=== PATIENT | female | born 1945 | race African-American/Black ===

== ENCOUNTER 2022-03-03 22:43 | Inpatient (IN) | payer MEDICARE, MEDICAID, SELFPAY ==
--- NOTE | ~2022-03-03 | CT_ITS ---
EXAMINATION: CT ANGIOGRAM OF THE CHEST WITH AND WITHOUT CONTRAST (CT PULMONARY ANGIOGRAM FOR PE) CLINICAL INFORMATION: Reason for Exam R O PE COMPARISON: Chest radiograph 03/03/2022 TECHNIQUE: Prior to contrast administration, noncontrast localization images were obtained. Subsequently, multidetector volumetric imaging was performed from the thoracic inlet to below the diaphragms following the administration of 65 mL Omnipaque 350 intravenous contrast. No contrast reaction reported Sagittal, coronal, and MIP oblique sagittal reformatted images were obtained on the CT workstation, uploaded to PACS, and reviewed. This CT examination was performed using dose optimization techniques as appropriate, variously including the following: *Automated exposure control *Adjustment of mA and/or kV according to patient size (this includes techniques or standardized protocols for targeted exams where dose is matched to indication/reason for exam; i.e. extremities or head) *Use of iterative reconstruction technique Total exam dose-length product 314 mGy-cm FINDINGS: QUALITY OF STUDY/CONTRAST BOLUS: Suboptimal. The upper portion of the chest was not included on the coronary angiographic is timing and respiratory motion limits evaluation and therefore segmental and subsegmental pulmonary emboli cannot be evaluated for. PULMONARY ARTERIES: No central or lobar pulmonary embolism. Segmental and subsegmental pulmonary emboli cannot be excluded given limitations of the exam. Prominent pulmonary arteries which can be seen in setting of pulmonary hypertension. CHEST WALL/AXILLA: No axillary lymphadenopathy. Left chest wall dual lead cardiac pacemaker leads terminating in the right atrium and ventricle. LUNGS: Respiratory motion the lung bases limits evaluation. A 9.5 x 9.6 cm approximately centrally fluid attenuation right upper lobe mass in the right lung apex contacting the right hilum, superior mediastinum and posterolateral pleural surface, for which differential considerations would include a necrotic primary bronchogenic carcinoma, versus a necrotizing pneumonia. The lesion narrows and attenuates the right upper lobe bronchus. A 0.6 cm solid right lower lobe pulmonary nodule, 11:281. Mild diffuse bronchial wall thickening with patchy areas of groundglass may reflect mild pulmonary edema or underlying atypical/viral infection. MEDIASTINUM: Heart is mildly enlarged. Enlarged 1.3 cm precarinal node. Enlarged 1.6 cm short axis right hilar node. CORONARY ARTERY CALCIFICATION: No significant coronary artery calcification appreciated on this exam. PLEURA: Trace right pleural effusion. UPPER ABDOMEN: Status post cholecystectomy. A 1.3 cm indeterminate left adrenal nodule and a 1.0 cm indeterminate right adrenal nodule. OSSEOUS STRUCTURES: Unremarkable. CT/CT angio chest PE protocol IMPRESSION: No central or lobar pulmonary embolism. Segmental and subsegmental pulmonary emboli cannot be excluded given limitations of the exam. An at least 9.5 cm centrally fluid attenuation right upper mass, suspicious for necrotizing bronchogenic carcinoma versus a necrotizing pneumonia. Recommend correlation with clinical symptoms and consider tissue sampling or PET/CT for further evaluation. Mediastinal and right hilar adenopathy which may be metastatic versus reactive, depending on the clinical context. Indeterminate 1.3 cm left adrenal nodule and indeterminate 1.0 cm right adrenal nodule for which further characterization with CT adrenal protocol, MR abdomen or PET/CT is recommended if patient is deemed have a primary malignancy. A 0.5 cm indeterminate right lower lobe pulmonary nodule. Fleischner Society recommended for pulmonary nodule follow-up do not apply for patients with a history of malignancy. Mild diffuse bronchial wall thickening with patchy areas of groundglass may reflect mild pulmonary edema or underlying atypical/viral infection. Mild cardiomegaly with a trace right pleural effusion. The findings and recommendations were discussed with Dr. Jamie Sahhid MD by telephone at 03/05/2022 8:04 PM and it was ascertained that the content and urgency of the report was understood at the time of direct communication.
--- NOTE | ~2022-03-03 | XR_ITS ---
EXAMINATION: XR CHEST CLINICAL INFORMATION: Low blood pressure COMPARISON: None TECHNIQUE: Frontal view of the chest was obtained. FINDINGS: Dense right upper lobe airspace consolidation. No appreciable air bronchograms or volume loss. Mild streaky/linear left basilar subsegmental atelectasis. No pleural effusion or pneumothorax identified. Cardiomediastinal silhouette within normal limits. Left-sided pacer with lead tips project over the right atrium and right ventricle. No evidence of pulmonary edema. No acute osseous injury identified. XR/XR chest 1V IMPRESSION: 1. Dense right upper lobe airspace consolidation compatible with pneumonia in the appropriate clinical setting. 2. No pleural effusions. 3. Mild left basilar subsegmental atelectasis.
--- NOTE | ~2022-03-03 | XR_ITS ---
EXAMINATION: XR ABDOMEN KUB CLINICAL INDICATION: Constipation COMPARISON: None TECHNIQUE: AP view of the abdomen. FINDINGS: There is an 8.1 x 7.6 cm stool ball present in the rectum. There is no evidence of bowel obstruction. Air is seen nondilated colon with a small amount seen in small bowel. No unusual soft tissue calcifications are noted. Degenerative changes are seen in the spine. Surgical clips are noted in the gallbladder fossa. A bipolar pacemaker is present. Patient status post laminectomy at L3 and possibly L4. XR/XR KUB IMPRESSION: Stool ball present in the rectum. No evidence of bowel obstruction.
[2022-03-03 22:58] VITALS: BP 110/50; BP 92/32; PULSE 100; PULSE 98; RESP 24; TEMP 36.9; O2SAT 94; O2SAT 98; BMI 42.3
--- NOTE | 2022-03-03 23:21 | ECG_ITS ---
Test Reason : SOB Blood Pressure : / mmHG Vent. Rate : 096 BPM Atrial Rate : 096 BPM P-R Int : 222 ms QRS Dur : 104 ms QT Int : 368 ms P-R-T Axes : 080 088 175 degrees QTc Int : 464 ms Sinus rhythm with 1st degree A-V block ST & T wave abnormality, consider inferolateral ischemia Abnormal ECG No previous ECGs available Referred By: Sunitha Springer Electronically Signed By:Cory Pyle
--- NOTE | 2022-03-03 23:40 | ED_ITS ---
HPI - General Adult General Chief complaint: Dyspnea Stated complaint: hypotension with difficulty breathing Time Seen by Provider: 03/03/22 23:01 Source: patient and EMS Mode of arrival: EMS Limitations: other (Very hard of hearing) History of Present Illness HPI narrative: Patient comes to the emergency room from [facility]. According to the staff, patient's oxygen saturation was low in the 70s, blood pressure in the low 90s. According to EMS, when they arrived, patient had a blood pressure of 110/50 and oxygen saturation 93-94 on her usual 4 L. patient states that she feels fine and does not have any new symptoms. The to the emergency room, patient in no acute distress, Related Data Allergies Allergy/AdvReac Type Severity Reaction Status Date / Time No Known Allergies Allergy Verified 03/03/22 22:55 Review of Systems Review of Systems: Constitutional : No Weight loss, No Fever, No Chills, No Night Sweats, No Fatigue, No Malaise ENT/Mouth : No Hearing loss, No Ear Pain, No Nasal Congestion, No Sinus Pain, No Hoarseness, No sore throat, No Rhinorrhea, No Swallowing Difficulty Eyes: No Eye Pain, No Swelling, No Redness, No Foreign Body, No Discharge, No Vision Changes Cardiovascular : No Chest Pain, No SOB, No Dyspnea on Exertion, No Orthopnea, No Edema, No Palpitations Respiratory : No Cough, No Sputum, No Wheezing, No Smoke Exposure, No Dyspnea Gastrointestinal : No Nausea, No Vomiting, No Diarrhea, No Constipation, No abdominal Pain, No Hematochezia, No Melena Genitourinary : no irregular bleeding, No Dysuria, No Urinary Frequency, No Hematuria, No Urinary Incontinence, No Urgency, No Flank Pain, No Urinary Flow Changes, No Hesitancy Musculoskeletal : No joint pain, No Myalgias, No Joint Swelling Skin : No Skin Lesions, No rash Neuro : No Weakness, No Numbness, No Paresthesias, No Loss of Consciousness, No Dizziness, No Headache Psych : No Anxiety/Panic, No Depression, No SI/HI/AH/VH, No Social Issues, Heme/Lymph: No Bruising, No Bleeding,No Lymphadenopathy Endocrine : No Polyuria, No Polydipsia, No Temperature Intolerance PMFSH Past Medical History Medical History (Updated 03/04/22 @ 04:33 by Sunitha Springer MD) CHF (congestive heart failure) Chronic respiratory failure CKD (chronic kidney disease) COPD (chronic obstructive pulmonary disease) HLD (hyperlipidemia) HTN (hypertension), benign Lung cancer Social History Social History Advance Directives: No Advance Directives Information Provided: Yes Physical Exam ED Vital Signs: Vital Signs - 24 hr 03/03/22 22:58 03/04/22 00:23 03/04/22 02:59 Temperature 98.4 F 97.8 F 97.9 F Pulse Rate 98 94 89 Respiratory Rate 24 H 19 24 H Blood Pressure 92/32 L 101/50 L 107/64 Pulse Oximetry 98 98 100 Oxygen Delivery Method Nasal Cannula Room Air Nasal Cannula Oxygen Flow Rate 6 BMI result Body Mass Index 42.3 Const Other: Appearance: Alert. Oriented X3. No acute distress. Eyes: Pupils equal, round and reactive to light. ENT: Pharynx normal. Hard of hearing Neck: Normal inspection. Neck supple. No lymph nodes noted. No crepitus CVS: Normal heart rate and rhythm. Pulses normal. Normal S1 and S2 Respiratory: No respiratory distress. Breath sounds normal. No Wheezing. No ral es Abdomen: Soft and nontender. No rigidity. No distention. Skin: Skin warm and dry. Normal skin color. Normal skin turgor. Extremities: No lower extremity edema. No Lacerations. No Rash Neuro: Oriented X 3. No motor deficit. No sensory deficit. Moving all extremities. No slurred speech. CN 2 through 12 grossly intact Psych: calm, cooperative, normal affect Course Course Course Narrative: Patient likely has pneumonia, right upper lobe. Patient also count 15.4, lactic acid within normal limits. Here in the emergency room, patient has not had hypertension under 90 systolic. Patient states that she has no chest pain or shortness of breath. Sepsis is not suspected. Fluids cannot be giving at a rapid rate for a high-volume the 2 history of CHF. Patient's troponin 1. Is elevated but it is unclear if this is new or not, no previous troponin for comparison or EKGs. The EKG has significant abnormalities, but again, it is unclear if these are new or not. The 2nd EKG that was taken does not show any differences from the 1st 1. The 2nd troponin is a bit elevated compared to the 1st 1. Troponin 1. Was 164, troponin 2. Was 245. Patient remains asymptomatic and vitals are stable. Response from Cardiology on-call pending. Patient will likely need to be heparinized. Potassium 3.1, replaced p.o.. The D-dimer is elevated. At this time, we cannot do an CT for pulmonary em bolism rule out due to patient's renal function. Patient was gently hydrated, will repeat chemistry. Patient does have history of chronic kidney disease stage 3. Patient will likely need a V/Q scan in the morning. I discussed the patient with Dr. Ayala, given that the patient has T-wave inversions with troponin doubling, we will go ahead and start heparin. V/Q scan will likely be done later this morning. Medications Administered Discontinued Medications Generic Name Dose Route Start Last Admin Trade Name Freq PRN Reason Stop Dose Admin Sodium Chloride 1,000 mls @ 500 mls/hr 03/04/22 00:43 03/04/22 03:10 Ns IVCONT 03/04/22 02:42 Infused .Q2H ONE Infusion Azithromycin 500 mg/ Sodium 250 mls @ 125 mls/hr 03/04/22 00:43 03/04/22 02:35 Chloride IV 03/04/22 02:42 125 mls/hr ONCE ONE Administration Ceftriaxone Sodium 1 gm/ 50 mls @ 100 mls/hr 03/04/22 00:43 03/04/22 03:10 Sodium Chloride IV 03/04/22 01:12 Infused ONCE ONE Infusion Potassium Chloride 40 meq 03/04/22 03:21 03/04/22 04:03 Potassium Chloride Packet 20 Meq Packet PO 03/04/22 03:22 40 meq ONCE ONE Administration Medical Decision Making Differential Diagnosis Differential Diagnoses: The differential diagnosis associated with the presentation includes (Demand ischemia versus NSTEMI, pneumonia) Admission/Observation Consideration of admission/observation: Escalation of care including admission/observation considered (Troponin has been elevated, EKG has significant T-wave inversions, unknown if these are new) Consult Healthcare Provider Management of the patient was discussed with: Hospitalist discussed pt with Dr Ayala, will go ahead and start heparin Lab Data MDM Lab Attestation statement: I reviewed the patient's lab results. 03/04/22 00:13 03/04/22 00:13 Labs: Lab Results 03/03/22 03/04/22 03/04/22 Range/Units 23:57 00:12 00:12 WBC (4.8-10.8) X10*3/uL RBC (4.20-5.50) X10*6/uL Hgb (12.0-16.0) g/dl Hct (37.0-47.0) % MCV (80.0-98.0) fL MCH (27.0-33.0) pg MCHC (31.0-35.0) g/dl RDW (11.0-16.0) % Plt Count (160-400) X10*3/uL MPV (9.4-12.3) fL Immature Gran % (Auto) (0.0-0.4) % Neut % (Auto) (45-73) % Lymph % (Auto) (20-40) % [place] % (Auto) (2-11) % Eos % (Auto) (0-4) % Baso % (Auto) (0-2) % Lymph # (Auto) (1.2-4.9) X10*3/uL [place] # (Auto) (0.1-1.2) X10*3/uL Eos # (Auto) (0.0-0.4) X10*3/uL Baso # (Auto) (0.0-0.2) X10*3/uL Abs Immat Gran (auto) (0.00-0.03) X10*3/uL Absolute Neuts (auto) (2.0-8.3) x10*3/uL Absolute Nucleated RBC (0.0-0.012) X10*3/uL Nucleated RBC % (auto) (0.0-0.2) /100WBC PT (10.0-13.1) SEC INR (0.9-1.1) D-Dimer High Sensitivty 927 NG/ML Sodium (135-145) mmol/L Potassium (3.3-5.1) mmol/L Chloride (96-108) mmol/L Carbon Dioxide (22-29) mmol/L Anion Gap (12-20) BUN (9-16) mg/dL Creatinine (0.5-1.4) mg/dL Estim Creat Clear Calc Estimated GFR Random Glucose (60-115) mg/dL Lactic Acid (0.5-2.0) mmol/L Calcium (8.4-10.2) mg/dL Magnesium (1.6-2.6) mg/dL Total Bilirubin (0.0-1.0) mg/dL Direct Bilirubin (0.0-0.5) mg/dL AST (5-31) U/L ALT (0-31) U/L Alkaline Phosphatase (39-117) U/L Troponin I High Sens (<3.5-17.0) ng/L B-Natriuretic Peptide 172 H (<100) pg/mL Total Protein (6.5-8.0) g/dL Albumin (3.5-5.0) g/dL COVID-19 ([facility]ANEL) Negative (Negative) COVID-19 Clin Com See Note 03/04/22 03/04/22 03/04/22 Range/Units 00:13 00:13 00:13 WBC 15.4 H (4.8-10.8) X10*3/uL RBC 3.60 L (4.20-5.50) X10*6/uL Hgb 10.4 L (12.0-16.0) g/dl Hct 35.0 L (37.0-47.0) % MCV 97.2 (80.0-98.0) fL MCH 28.9 (27.0-33.0) pg MCHC 29.7 L (31.0-35.0) g/dl RDW 14.6 (11.0-16.0) % Plt Count 690 H (160-400) X10*3/uL MPV 9.3 L (9.4-12.3) fL Immature Gran % (Auto) 2.1 H (0.0-0.4) % Neut % (Auto) 89.4 H (45-73) % Lymph % (Auto) 3.8 L (20-40) % [place] % (Auto) 4.4 (2-11) % Eos % (Auto) 0.0 (0-4) % Baso % (Auto) 0.3 (0-2) % Lymph # (Auto) 0.6 L (1.2-4.9) X10*3/uL [place] # (Auto) 0.7 (0.1-1.2) X10*3/uL Eos # (Auto) 0.0 (0.0-0.4) X10*3/uL Baso # (Auto) 0.0 (0.0-0.2) X10*3/uL Abs Immat Gran (auto) 0.33 H (0.00-0.03) X10*3/uL Absolute Neuts (auto) 13.7 H (2.0-8.3) x10*3/uL Absolute Nucleated RBC 0.000 (0.0-0.012) X10*3/uL Nucleated RBC % (auto) 0.0 (0.0-0.2) /100WBC PT 15.5 H (10.0-13.1) SEC INR 1.3 H (0.9-1.1) D-Dimer High Sensitivty NG/ML Sodium 138 (135-145) mmol/L Potassium 3.1 L (3.3-5.1) mmol/L Chloride 83 L (96-108) mmol/L Carbon Dioxide 40 H* (22-29) mmol/L Anion Gap 18 (12-20) BUN 21 H (9-16) mg/dL Creatinine 1.76 H (0.5-1.4) mg/dL Estim Creat Clear Calc 36.8 Estimated GFR 28 Random Glucose 107 (60-115) mg/dL Lactic Acid (0.5-2.0) mmol/L Calcium 9.3 (8.4-10.2) mg/dL Magnesium 1.6 (1.6-2.6) mg/dL Total Bilirubin 1.2 H (0.0-1.0) mg/dL Direct Bilirubin 0.6 H (0.0-0.5) mg/dL AST 22 (5-31) U/L ALT 10 (0-31) U/L Alkaline Phosphatase 78 (39-117) U/L Troponin I High Sens (<3.5-17.0) ng/L B-Natriuretic Peptide (<100) pg/mL Total Protein 6.9 (6.5-8.0) g/dL Albumin 3.0 L (3.5-5.0) g/dL COVID-19 ([facility]ANEL) (Negative) COVID-19 Clin Com 03/04/22 03/04/22 03/04/22 Range/Units 00:13 00:13 03:33 WBC (4.8-10.8) X10*3/uL RBC (4.20-5.50) X10*6/uL Hgb (12.0-16.0) g/dl Hct (37.0-47.0) % MCV (80.0-98.0) fL MCH (27.0-33.0) pg MCHC (31.0-35.0) g/dl RDW (11.0-16.0) % Plt Count (160-400) X10*3/uL MPV (9.4-12.3) fL Immature Gran % (Auto) (0.0-0.4) % Neut % (Auto) (45-73) % Lymph % (Auto) (20-40) % [place] % (Auto) (2-11) % Eos % (Auto) (0-4) % Baso % (Auto) (0-2) % Lymph # (Auto) (1.2-4.9) X10*3/uL [place] # (Auto) (0.1-1.2) X10*3/uL Eos # (Auto) (0.0-0.4) X10*3/uL Baso # (Auto) (0.0-0.2) X10*3/uL Abs Immat Gran (auto) (0.00-0.03) X10*3/uL Absolute Neuts (auto) (2.0-8.3) x10*3/uL Absolute Nucleated RBC (0.0-0.012) X10*3/uL Nucleated RBC % (auto) (0.0-0.2) /100WBC PT (10.0-13.1) SEC INR (0.9-1.1) D-Dimer High Sensitivty NG/ML Sodium (135-145) mmol/L Potassium (3.3-5.1) mmol/L Chloride (96-108) mmol/L Carbon Dioxide (22-29) mmol/L Anion Gap (12-20) BUN (9-16) mg/dL Creatinine (0.5-1.4) mg/dL Estim Creat Clear Calc Estimated GFR Random Glucose (60-115) mg/dL Lactic Acid 0.9 (0.5-2.0) mmol/L Calcium (8.4-10.2) mg/dL Magnesium (1.6-2.6) mg/dL Total Bilirubin (0.0-1.0) mg/dL Direct Bilirubin (0.0-0.5) mg/dL AST (5-31) U/L ALT (0-31) U/L Alkaline Phosphatase (39-117) U/L Troponin I High Sens 164.3 H* 345.2 H* D (<3.5-17.0) ng/L B-Natriuretic Peptide (<100) pg/mL Total Protein (6.5-8.0) g/dL Albumin (3.5-5.0) g/dL COVID-19 ([facility]ANEL) (Negative) COVID-19 Clin Com Independent Interpretation I performed an independent interpretation of an: EKG (Fred inversions in lead 1, 2, V4 through V6, heart rate 91, sinus rhythm, ST abnormalities in V4 through V6, no previous EKGs for comparison) and Plain X-Ray Interpretation: My interpretation of chest x-ray: Large gastric bubble, likely a hiatal hernia, pacemaker in place, pneumonia in right upper lobe Radiology Impression Discussion of test interpretation with radiology: I have reviewed the radiologist's reading. Radiologist Impression: INDINGS: Dense right upper lobe airspace consolidation. No appreciable air bronchograms or volume loss. Mild streaky/linear left basilar subsegmental atelectasis. No pleural effusion or pneumothorax identified. Cardiomediastinal silhouette within normal limits. Left-sided pacer with lead tips project over the right atrium and right ventricle. No evidence of pulmonary edema. No acute osseous injury identified. XR/XR chest 1V IMPRESSION: 1.? Dense right upper lobe airspace consolidation compatible with pneumonia in the appropriate clinical setting. 2.? No pleural effusions. 3.? Mild left basilar subsegmental atelectasis. Chronic Conditions Patient?s care impacted by: Other (COPD, CHF. Antibiotics have been started, fluids need to be crushed with care due to CHF) Critical Care Time Critical Care Time Critical Care Time: Yes Total Critical Care Time: 75 Attestation: I have personally provided critical care time. Time includes review of lab data, radiology results, discussion with consultants, and monitoring for potential decompensation. Intervention performed as documented. Discharge Plan Discharge Clinical Impression: Pneumonia, Non-ST elevation DC (NSTEMI), Elevated d-dimer, Hypokalemia Patient Disposition: Admitted As Inpatient
[2022-03-04] VITALS (8 sets, daily range): BP systolic 101–120; BP diastolic 47–75; PULSE 74–94; RESP 16–24; TEMP 36.4–37.1; O2SAT 95–100; BMI 42.7
--- NOTE | 2022-03-04 | ECG_ITS ---
Test Reason : SOB Blood Pressure : / mmHG Vent. Rate : 091 BPM Atrial Rate : 091 BPM P-R Int : 250 ms QRS Dur : 112 ms QT Int : 352 ms P-R-T Axes : 080 090 199 degrees QTc Int : 432 ms Sinus rhythm with 1st degree A-V block Rightward axis ST & T wave abnormality, consider inferolateral ischemia Abnormal ECG When compared with ECG of 03-MAR-2022 23:27, No significant change was found Referred By: Sunitha Springer Electronically Signed By:Cory Pyle
--- NOTE | 2022-03-04 | ECG_ITS ---
Test Reason : SOB Blood Pressure : / mmHG Vent. Rate : 075 BPM Atrial Rate : 075 BPM P-R Int : 244 ms QRS Dur : 108 ms QT Int : 390 ms P-R-T Axes : 079 065 168 degrees QTc Int : 435 ms Sinus rhythm with 1st degree A-V block ST & T wave abnormality, consider inferolateral ischemia Abnormal ECG When compared with ECG of 04-MAR-2022 00:41, Nonspecific T wave abnormality has replaced inverted T waves in Anterior leads Referred By: Sunitha Springer Electronically Signed By:Cory Pyle
[2022-03-04 00:18] LABS: MANUAL DIFF FLAG NO
[2022-03-04 00:23] LABS: White Blood Count 15.4 X10*3/uL (4.8-10.8)
[2022-03-04 00:24] LABS: Basophils Percent Auto 0.3 % (0-2); Hemoglobin 10.4 g/dl (12.0-16.0); Imm Gran Abs Auto 0.33 X10*3/uL (0.00-0.03); Imm Gran Pct Auto 2.1 % (0.0-0.4); Lymphocytes Absolute Auto 0.6 X10*3/uL (1.2-4.9); Lymphocytes Percent Auto 3.8 % (20-40); Mean Corpuscular HGB Conc 29.7 g/dl (31.0-35.0); Mean Corpuscular Hemoglobin 28.9 pg (27.0-33.0); Mean Corpuscular Volume 97.2 fL (80.0-98.0); Mean Platelet Volume 9.3 fL (9.4-12.3); Monocytes Absolute Auto 0.7 X10*3/uL (0.1-1.2); Monocytes Percent Auto 4.4 % (2-11); Neutrophils Absolute Auto 13.7 x10*3/uL (2.0-8.3); Neutrophils Percent Auto 89.4 % (45-73); Platelet Count 690 X10*3/uL (160-400); Red Cell Distribution Width 14.6 % (11.0-16.0)
[2022-03-04 00:26] LABS: COVID-19 Test Negative (Negative); IDNOW Serial# 6674DD1D
[2022-03-04 00:27] LABS: INTERNATIONAL NORM RATIO 1.3 (0.9-1.1); Prothrombin Time 15.5 SEC (10.0-13.1)
[2022-03-04 00:29] LABS: D Dimer High Sensitivity 927 NG/ML
[2022-03-04 00:36] LABS: Lactic Acid 0.9 mmol/L (0.5-2.0)
[2022-03-04 00:47] LABS: B Type Natriuretic Peptide 172 pg/mL (<100)
[2022-03-04 00:49] LABS: Troponin-I High Sensitivity 164.3 ng/L (<3.5-17.0)
[2022-03-04 00:50] LABS: Alanine Aminotransferase 10 U/L (0-31); Alkaline Phosphatase 78 U/L (39-117); Anion Gap 18 (12-20); Aspartate Amino Transferase 22 U/L (5-31); Bilirubin Direct 0.6 mg/dL (0.0-0.5); Bilirubin Total 1.2 mg/dL (0.0-1.0); Blood Urea Nitrogen 21 mg/dL (9-16); Calcium 9.3 mg/dL (8.4-10.2); Carbon Dioxide 40 mmol/L (22-29); Chloride 83 mmol/L (96-108); Creatinine Clr Calc Pharmacy 36.8; Estimated Glomerular Filt Rate 28; Glucose Random 107 mg/dL (60-115); Magnesium 1.6 mg/dL (1.6-2.6); Potassium 3.1 mmol/L (3.3-5.1); Sodium 138 mmol/L (135-145); Total Protein 6.9 g/dL (6.5-8.0)
--- OUTSIDE RECORDS SUMMARY | 2022-03-04 00:52 | XMS_ITS | Continuity of Care Document ---
:[address] [facility] Address [address] [place] [address]- Care Team Providers Name Role Phone Dhiraj LEGGETT, Blanca Primary Care Phys[id number] Date(s): 07/18/20 - 07/25/[address] [address]- Attending Physician: Fred Esquivel MD Admitting Physician: Fred Esquivel MD Referring Physician: Fred Esquivel MD Allergies, Adverse Reactions, Alerts Substance Reaction Severity Status NKA Active Medications aspirin 81 mg oral delayed release tablet 81 mg, By Mouth, Daily, # 30 tablet, Refills 3, Tot. Refills 3, Maintenance, 02/20/20 9:09:00 EST, Route to Pharmacy Electronically, [facility], Partial fill upon patient request if the prescription is for a schedule II opioid drug., 167... Start Date: 02/20/20 Status: Orderedatorvastatin 40 mg oral tablet 1 tablet = 40 mg, By Mouth, Daily at bedtime, # 30 tablet, 3 Refills, Maintenance, 02/20/20 9:09:00 EST, Tablet, [facility], Partial fill upon patient request if the prescription is for aschedule II opioid drug., 167, cm, 02/20/20 8:05:... Start Date: 02/20/20 Status: Orderedspironolactone 25 mg oral tablet 25 mg, 1, tablet, By Mouth, Daily, # 30 tablet, Refills 3, Tot. Refills 3, Maintenance, 02/20/20 9:09:00 EST, Route to Pharmacy Electronically, [facility], Partial fill upon patient request if the prescription is for a schedule II opioid... Start Date: 02/20/20 Status: Orderedtorsemide 20 mg oral tablet 1 tablet = 20 mg, By Mouth, Daily, # 30 tablet, 3 Refills, Maintenance, 02/20/20 9:09:00 EST, Tablet, [facility], Partial fill upon patient request if the prescription is for a schedule II opioid drug., 167, cm, 02/20/20 8:05:00 EST, Hei... Start Date: 02/20/20 Status: Ordered Problem List Condition Effective Dates Status Health Status Informant Uterovaginal Prolapse, Active Complete(Confirmed) Social History Social History Type Response Tobacco Use: 4 or less cigarettes(le ss than 1/4 pack)/day in last 30 days. Sex
--- OUTSIDE RECORDS SUMMARY | 2022-03-04 00:52 | XMS_ITS ---
:1945 Author Care Team Providers Name Role Phone BÁRBARA RICCI NP Primary Care Provider [phone] Allergies Code Code System Name Reaction Severity Status Onset NKDA ? Medications Name Status Start Date Stop Date ? ? aspirin 81 mg tablet,delayed release Active ? Not available TAKE 1 TABLET BY MOUTH EVERY DAY atorvastatin 40 mg tablet Completed ? 2021 TAKE 1 TABLET BY MOUTH EVERYDAY AT BEDTIME calcium Active ? Not available dexamethasone 6 mg tablet Completed ? 2021 TAKE 1 TABLET BY MOUTH EVERY DAY FOR 5 DAYS. (START ON 03/20/21) germanium Active ? Not available [id number] Active ? N ot available Grape Seed Active ? Not available oxygen Active ? Not available spironolactone 25 mg tablet Active ? Not available TAKE 1 TABLET BY MOUTH EVERY DAY torsemide 20 mg tablet Active ? Not avail able TAKE 1 TABLET BY MOUTH EVERY DAY Problems None recorded. Procedures Date Name Performed by ? ? Mastoidectomy Information not avai lable Notes: soft bone ? Cholecystectomy Information not avai lable ? Hernia Repair Information not avai lable ? Total Hysterectomy Information not avai lable Results Lab Results None recorded. Past Encounters Encounter Date Diagnosis Provider 06/06/2021 Edema of Lower Extremity; Chronic Sarahi elena CLOTHING MAN: Brooke Leone, [place] [address], Ph. [phone] Social History Tobacco Smoking Status Former Smoker Vaccine List None recorded. Plan of Care Patient Instructions Please follow up with your primary care provider or specialist 3-5 days to be rechecked or seek medical attention if y our symptoms do not go away or get worse. If you have additional concerns or develop a change in your condition between 8am-10pm, please call [facility] at to help navigate your care. Reminders Provider Appointments None recorded. ? ? Lab None recorded. ? ? Referral None recorded. ? ? Procedures None recorded. ? ? Surgeries None recorded. ? ? Imaging None recorded. ? ? Vitals Blood Pressure 116/70 mm[Hg]
--- OUTSIDE RECORDS SUMMARY | 2022-03-04 00:52 | XMS_ITS | Continuity of Care Document ---
:1945 Author Organization [facility] Address [address] [place], [place] [address]- Care Team Providers Name Role Phone Dhiraj LEGGETT, Blanca Primary Care Physician [place] [facility] [id number] Date(s): 07/18/20 - 08/17/20 [facility] [address] [address]- Attending Physician: Lowell Bradford Admitting Physician: AdmtrLowell Referring Physician: Admtr, Ar8 Allergies, Adverse Reactions, Alerts Substance Reaction Severity Status NKA Active Medications aspirin 81 mg oral delayed release tablet 81 mg, By Mouth, Daily, # 30 tablet, Refills 3, Tot. Refills 3, Maintenance, 02/20/20 9:09:00 EST, Route to Pharmacy Electronically, [facility], Partial fill upon patient request if the prescription is for a schedule II opioid drug., 167... Start Date: 02/20/20 Status: Orderedatorvastatin 40 mg oral tablet 1 tablet = 40 mg, By Mouth, Daily at bedtime, # 30 tablet, 3 Refills, Maintenance, 02/20/20 9:09:00 EST, Tablet, [facility], Partial fill upon patient request if the prescription is for aschedule II opioid drug., 167, cm, 02/20/20 8:05:... Start Date: 02/20/20 Status: Orderedspironolactone 25 mg oral tablet 25 mg, 1, tablet, By Mouth, Daily, # 30 tablet, Refills 3, Tot. Refills 3, Maintenance, 02/20/20 9:09:00 EST, Route to Pharmacy Electronically, [facility], Partial fill upon patient request if the prescription is for a schedule II opioid... Start Date: 02/20/20 Status: Orderedtorsemide 20 mg oral tablet 1 tablet = 20 mg, By Mouth, Daily, # 30 tablet, 3 Refills, Maintenance, 02/20/20 9:09:00 EST, Tablet, [facility], Partial fill upon patient request if [...]
--- OUTSIDE RECORDS SUMMARY | 2022-03-04 00:52 | XMS_ITS | Continuity of Care Document ---
:1945 Author Organization [facility] Address [address] [place] [address]- Care Team Providers Name Role Phone Dhiraj LEGGETT, Blanca [id number] Date[facility]s): [facility] - 04/13/[address] [address]- Attending Physician: Geronimo Pacheco MD Admitting Physician: Geronimo Pacheco MD Referring Physician: Blanca Hearn NP Allergies, Adverse Reactions, Alerts Substance Reaction Severity Status NKA Active Medications aspirin 81 mg oral delayed release tablet 81 mg, By Mouth, Daily, # 30 tablet, Refills 3, Tot. Refills 3, Maintenance, 02/20/20 9:09:00 EST, Route to Pharmacy Electronically, [facility], Partial fill upon patient request if the prescription is for a schedule II opioid drug., 167... Start Date: 02/20/20 Status: Orderedatorvastatin 40 mg oral tablet 1 tablet = 40 mg, By Mouth, Daily at bedtime, # 30 tablet, 3 Refills, Maintenance, 02/20/20 9:09:00 EST, Tablet, [facility], Partial fill upon patient request if the prescription is for aschedule II opioid drug., 167, cm, 02/20/20 8:05:... Start Date: 02/20/20 Status: Orderedspironolactone 25 mg oral tablet 25 mg, 1, tablet, By Mouth, Daily, # 30 tablet, Refills 3, Tot. Refills 3, Maintenance, 02/20/20 9:09:00 EST, Route to Pharmacy Electronically, [facility], Partial fill upon patient request if the prescription is for a schedule II opioid... Start Date: 02/20/20 Status: Orderedtorsemide 20 mg oral tablet 1 tablet = 20 mg, By Mouth, Daily, # 30 tablet, 3 Refills, Maintenance, 02/20/20 9:09:00 EST, Tablet, [facility], Partial fill upon patient request [...]
--- OUTSIDE RECORDS SUMMARY | 2022-03-04 00:52 | XMS_ITS | Continuity of Care Document ---
:1945 Author Organization [facility] Address [address] [place] [address], [address] [place] [address]- Care Team Providers Name Role Phone Dhiraj LEGGETT, Blanca Primary Care Physician Encounter [facility] [place] Date(s): 01/08/22 - 02/25/22 [facility] [address] [place] [address], [address] [place], [place] [address] Attending Physician: Syed Reyez DO Referring Physician: Blanca Hearn NP Allergies, Adverse Reactions, Alerts No Known Allergies Immunizations Not Given Vaccine Date Status Refusal Reason influenza virus vaccine, inactivated 11/22/21 Not Given Parent Or Guardian Refuses influenza virus vaccine, inactivated1 03/17/21 Not Given Patient Refuses 1Result Comment: Pt. educated Medications Albuterol 0.083% inhalation moriah 2.5 mg, 3, mL, BAND Nebulizer, Every 2 hours, PRN, Refills 0, Maintenance, Wheezing/Shortness of Breath, 12/02/21 11:18:00 EDT, Inhalation Solution Start Date: 12/02/21 Status: Orderedarformoterol 15 mcg/2 mL inhalation solution 2 mL = 15 mcg, BAND Nebulizer, 2 times a day, 0 Refills, Maintenance, 12/02/21 11:18:00 EDT, Inhalation Solution, Partial fill upon patient request if the prescription is for a schedule II opioid drug. Start Date: 12/02/21 Status: Orderedascorbic acid 500 mg oral tablet 1 tablet = 500 mg, By Mouth, Daily, # 30 tablet, 0 Refills, Maintenance, 02/10/22 14:50:00 EST, Tablet, Partial fill upon patient request if the prescription is for a schedule II opioid drug. Start Date: 02/10/22 Status: Orderedaspirin 81 mg oral delayed release tablet 81 mg, By Mouth, Daily, # 30 tablet, Refills 3, Tot. Refills 3, Maintenance, 02/20/20 9:09:00 EST, Route to Pharmacy Electronically, [facility], Partial fill upon patient request if the prescription is for a schedule II opioid drug., 167... Start Date: 02/20/20 Status: Orderedatorvastatin 40 mg oral tablet 1 tablet = 40 mg, By Mouth, Daily at bedtime, # 30 tablet, 3 Refills, Maintenance, 02/20/20 9:09:00 EST, Tablet, [facility], Partial fill upon patient request if the prescription is for aschedule II opioid drug., 167, cm, 02/20/20 8:05:... Start Date: 02/20/20 Status: Orderedchondroitin-glucosamine 400 mg-500 mg oral tablet 0 Refills, Maintenance, 02/10/22 14:53:00 EST, Partial fill upon patient request if the prescriptionis for a schedule II opioid drug. Start Date: 02/10/22 Status: OrderedColace sodium 100 mg oral capsule 100 mg, 1, capsule, By Mouth, 2 times a day, Refills 0, Maintenance, 12/02/21 11:18:00 EDT, Partial fill upon patient request if the prescription is for a schedule II opioid drug. Start Date: 12/02/21 Status: OrderedCompression Stockings See Instructions, # 2 pair, Refills 2, Tot. Refills 2, Maintenance, surgical, calf length 20-30 mm Hg Dx: venous insufficiency OK to dispense open-toed stockings at patient's request, 08/12/18 17:04:56EDT, Compound Start Date: 08/12/18 Status: Orderedergocalciferol 32073 iu oral capsule By Mouth, Every week, Refills 0, Maintenance, 12/02/21 11:18:00 EDT, Partial fill upon patient request if the prescription is for a schedule II opioid drug. Start Date: 12/02/21 Status: OrderedMelatonin 3 mg oral tablet 1 tablet = 3 mg, By Mouth, Daily at bedtime, PRN for insomnia, # 60 tablet, 0 Refills, Maintenance, 02/10/22 14:51:00 EST, Tablet, Partial fill upon patient request if the prescription is for a schedule II opioid drug. Start Date: 02/10/22 Status: OrderedMultivit Therapeutic/Minerals Tablet 1 tablet, By Mouth, Daily, 0 Refills, Maintenance, 12/02/21 11:19:00 EDT, Tablet, Partial fill upon patient request if the prescription is for a schedule II opioid drug. Start Date: 12/02/21 Status: Orderednicotine 14 mg/24 hr transdermal film, extended release 1 patch, Topically, Daily, # 30 patch, 0 Refills, Maintenance, 02/10/22 14:54:00 EST, Patch, Partialfill upon patient request if the prescription is for a schedule II opioid drug. Start Date: 02/10/22 Status: OrderedPhos-NaK Oral Powder 1 pack/packet, By Mouth, 2 times a day, 0 Refills, Maintenance, 12/02/21 11:24:00 EDT, Oral Powder, Partial fill upon patient request if the prescription is for a schedule II opioid drug. Start Date: 12/02/21 Stop Date: 12/05/21 Status: OrderedPulmicort Respules 0.5 mg/2 mL inhalation suspension 0.5 mg, 2, mL, Neb, 2 times a day, Refills 0, Maintenance, 12/02/21 11:18:00 EDT, Inhalation Suspension Start Date: 12/02/21 Status: Orderedthiamine 100 mg oral tablet 100 mg, 1, tablet, By Mouth, Daily, Refills 0, Maintenance, 12/02/21 11:19:00 EDT, Partial fill uponpatient request if the prescription is for a schedule II opioid drug. Start Date: 12/02/21 Status: Orderedtorsemide 20 mg oral tablet 2 tablet = 40 mg, By Mouth, Daily, # 30 tablet, 3 Refills, Maintenance, 02/20/20 9:09:00 EST, Tablet, [facility], Partial fill upon patient request if the prescription is for a schedule II opioid drug., 167, cm, 02/20/20 8:05:00 EST, Hei... Start Date: 02/20/20 Status: OrderedTylenol 325 mg oral tablet 650 mg, 2, tablet, By Mouth, Every 4 hours, PRN, Refills 0, Maintenance, Pain , Mild, 12/02/21 11:18:00 EDT, Partial fill upon patient request if the prescription is for a schedule II opioid drug. Start Date: 12/02/21 Status: Orderedzinc (as acetate) 50 mg oral capsule 1 capsule = 50 mg, By Mouth, Daily, on an empty stomach 1 hour before or 2 hours after eating, # 250capsule, 0 Refills, Maintenance, 02/10/22 14:52:00 EST, Capsule, Partial fill upon patient request if the prescription is for a schedule II opioid drug. Start Date: 02/10/22 Status: Ordered Problem List Condition Confirmation Course Effective Dates Status Health Stat us Informant Chronic diastolic Confirmed Active CHF (congestive heart failure) Stage 3a chronic Confirmed Active kidney disease (CKD) COPD without Confirmed Active exacerbation HLD Confirmed Active (hyperlipidemia) Morbid obesity Confirmed Active Severe obesity Confirmed Active Uterovaginal Confirmed Active Prolapse, Complete Social History Social History Type Response Tobacco Use: 4 or less cigarettes(le ss than 1/4 pack)/day in last 30 days. Sex Patient Care team information Care Team PersonnelName: Eric Hpokins RN Position: [facility] RN Member Role: Primary Care Nurse Name: Kandis Mann RN Position: [facility] RN Supv Member Role: Primary Care Nurse Name: Norma Olivo RN Position: [facility] RN Member Role: Primary Care Nurse Name: Sara Glass RN Position: [facility] AMB Nurse Member Role: Primary Care Nurse Name: Rena Watts RN Position: [facility] RN Member Role: Primary Care Nurse Name: Fely Love RN Position: [facility] RN Member Role: Primary Care Nurse Name: Jennifer Red RN Position: [facility] RN Member Role: Primary Care Nurse Name: Samy Conn RN Position: [facility] RN Member Role: Primary Care Nurse Name: Holly Shultz RN Position: [facility] RN Member Role: Primary Care Nurse Name: Gina Cortes RN Position: [facility] RN Member Role: Primary Care Nurse Name: Nabil Friedman RN Position: [facility] RN Member Role: Primary Care Nurse Name: Hailey Lara RN Position: [facility] RN Member Role: Primary Care Nurse Name: Matilda Caldwell RN Position: [facility] ED RN W/OE and Tasks Member Role: Primary Care Nurse Name: Eric Lombardi RN Position: [facility] RN Member Role: Primary Care Nurse Name: Verónica Wilson RN Position: [facility] RN Member Role: Primary Care Nurse Name: Blanca Hearn NP Position: [facility] Outreach Member Role: PCP Address: Address: [address] [place] [id number] Name: Yaa Patel RN Position: [facility] RN Member Role: Primary Care Nurse Name: Carolyn Ibarra Position: [facility] RN Member Role: Primary Care Nurse Name: Samy Calloway RN Position: [facility] RN Member Role: Primary Care Nurse Name: Ivonne Romero RN Position: [facility] RN Supv Member Role: Primary Care Nurse Name: Lona Mancera RN Position: [facility] RN Member Role: Primary Care Nurse Name: Michelle Garcia RN Position: [facility] RN Member Role: Primary Care Nurse Care Team Related PersonsName: NAILS, ELIGIO Address: home [address] [address] Name: NAVJOT AYALA
--- OUTSIDE RECORDS SUMMARY | 2022-03-04 00:52 | XMS_ITS | Continuity of Care Document ---
:[address] [facility] Address [address] [place] [address]- Care Team Providers Name Role Phone Dhiraj LEGGETT, Blanca Primary Care Phys[id number] Date(s): 05/16/20 - 06/29/20 [place] [address]- Attending Physician: Fred Esquivel MD Admitting Physician: Fred Esquivel MD Referring Physician: Fred Esquivel MD Allergies, Adverse Reactions, Alerts Substance Reaction Severity Status NKA Active Medications aspirin 81 mg oral delayed release tablet 81 mg, By Mouth, Daily, # 30 tablet, Refills 3, Tot. Refills 3, Maintenance, 02/20/20 9:09:00 EST, Route to Pharmacy Electronically, [facility], Partial fill upon patient request if the prescription is for a schedule II opioid drug., 167... Start Date: 02/20/20 Status: Orderedatorvastatin 40 mg oral tablet 1 tablet = 40 mg, By Mouth, Daily at bedtime, # 30 tablet, 3 Refills, Maintenance, 02/20/20 9:09:00 EST, Tablet, [facility], Partial fill upon patient request if the prescription is for aschedule II opioid drug., 167, cm, 02/20/20 8:05:... Start Date: 02/20/20 Status: Orderedspironolactone 25 mg oral tablet 25 mg, 1, tablet, By Mouth, Daily, # 30 tablet, Refills 3, Tot. Refills 3, Maintenance, 02/20/20 9:09:00 EST, Route to Pharmacy Electronically, [facility], Partial fill upon patient request if the prescription is for a schedule II opioid... Start Date: 02/20/20 Status: Orderedtorsemide 20 mg oral tablet 1 tablet = 20 mg, By Mouth, Daily, # 30 tablet, 3 Refills, Maintenance, 02/20/20 9:09:00 EST, Tablet, [facility], Partial fill upon patient request [...]
--- OUTSIDE RECORDS SUMMARY | 2022-03-04 00:52 | XMS_ITS | Continuity of Care Document ---
:1945 Author Organization [facility] Address [address] [place] [address]- Care Team Providers Name Role Phone Dhiraj LEGGETT, Blanca Primary Care Physician [place] [facility] [place] Date(s): 04/08/21 - 05/14/[address] [address] Attending Physician: Neno Hdz MD Admitting Physician: Neno Hdz MD Referring Physician: Reji Acosta MD Allergies, Adverse Reactions, Alerts No Known Allergies Immunizations Not Given Vaccine Date Status Refusal Reason influenza virus vaccine, inactivated1 03/17/21 Not Given Patient Refuses 1Result Comment: Pt. educated Medications aspirin 81 mg oral delayed release tablet 81 mg, By Mouth, Daily, # 30 tablet, Refills 3, Tot. Refills 3, Maintenance, 02/20/20 9:09:00 EST, Route to Pharmacy Electronically, [facility], Partial fill upon patient request if the prescription is for a schedule II opioid drug., 167... Start Date: 02/20/20 Status: Orderedatorvastatin 40 mg oral tablet 1 tablet = 40 mg, By Mouth, Daily at bedtime, # 30 tablet, 3 Refills, Maintenance, 02/20/20 9:09:00 EST, Tablet, [facility], Partial fill upon patient request if the prescription is for aschedule II opioid drug., 167, cm, 02/20/20 8:05:... Start Date: 02/20/20 Status: Orderedspironolactone 25 mg oral tablet 25 mg, 1, tablet, By Mouth, Daily, # 30 tablet, Refills 3, Tot. Refills 3, Maintenance, 02/20/20 9:09:00 EST, Route to Pharmacy Electronically, [facility], Partial fill upon patient request if the prescription is for a schedule II opioid... Start Date: 02/20/20 Status: Orderedtorsemide 20 mg oral tablet 1 tablet = 20 mg, By Mouth, Daily, # 30 tablet, 3 Refills, Maintenance, 02/20/20 9:09:00 EST, Tablet, [facility], Partial fill upon patient request if the prescription is for a schedule II opioid drug., 167, cm, 02/20/20 8:05:00 EST, Hei... Start Date: 02/20/20 Status: Ordered Problem List Condition Effective Dates Status Health Status Informant Severe obesity(Confirmed) Active Uterovaginal Prolapse, Active Complete(Confirmed) Social History Social History Type Response Tobacco Use: 4 or less cigarettes(le ss than 1/4 pack)/day in last 30 days. Sex
--- OUTSIDE RECORDS SUMMARY | 2022-03-04 00:52 | XMS_ITS | Continuity of Care Document ---
:1945 Author Organization [facility] Address [address] [place] [id number]- Care Team Providers Name Role Phone Dhiraj LEGGETT, Blanca Primary Care Physician Encounter [facility] Date(s): 03/15/21 - 03/19/[address] [address] Encounter Diagnosis COVID-19 (Final) - 03/17/21 Discharge Disposition: A-Transfer VNA/Home Health Attending Physician: Reji Acosta MD Admitting Physician: Venessa Wright MD Referring Physician: Not on Staff, Referring MD Allergies, Adverse Reactions, Alerts No Known Allergies Immunizations Not Given Vaccine Date Status Refusal Reason influenza virus vaccine, inactivated1 03/17/21 Not Given Patient Refuses 1Result Comment: Pt. educated Medications aspirin 81 mg oral delayed release tablet 81 mg, By Mouth, Daily, # 30 tablet, Refills 3, Tot. Refills 3, Maintenance, 02/20/20 9:09:00 EST, Route to Pharmacy Electronically, [facility], Partial fill upon patient request if the prescription is for a schedule II opioid drug., 167... Start Date: 02/20/20 Status: Orderedatorvastatin 40 mg oral tablet 1 tablet = 40 mg, By Mouth, Daily at bedtime, # 30 tablet, 3 Refills, Maintenance, 02/20/20 9:09:00 EST, Tablet, [facility], Partial fill upon patient request if the prescription is for aschedule II opioid drug., 167, cm, 02/20/20 8:05:... Start Date: 02/20/20 Status: Ordereddexamethasone 6 mg oral tablet 1 tablet = 6 mg, By Mouth, Daily, Please take one tablet daily starting 03/20/21 for 5 days, last dose on 03/24/21, # 5 tablet, 0 Refills, Acute 03/24/21 23:59:00 EST, 03/19/21 6:23:00 EST, [facility], Partial fill upon patient request i... Start Date: 03/19/21 Stop Date: 03/24/21 Status: Orderedspironolactone 25 mg oral tablet 25 mg, 1, tablet, By Mouth, Daily, # 30 tablet, Refills 3, Tot. Refills 3, Maintenance, 02/20/20 9:09:00 EST, Route to Pharmacy Electronically, [facility], Partial fill upon patient request if the prescription is for a schedule II opioid... Start Date: 02/20/20 Status: Orderedtorsemide 20 mg oral tablet 1 tablet = 20 mg, By Mouth, Daily, # 30 tablet, 3 Refills, Maintenance, 02/20/20 9:09:00 EST, Tablet, [facility], Partial fill upon patient request if the prescription is for a schedule II opioid drug., 167, cm, 02/20/20 8:05:00 EST, Hei... Start Date: 02/20/20 Status: Ordered Problem List Condition Effective Dates Status Health Status Informant Severe obesity(Confirmed) Active Uterovaginal Prolapse, Active Complete(Confirmed) Results Radiology Reports Exam Date Time Procedure Performing Provider Status 03/16/21 9:47 AM Chest Portable Brandi Schofield; Auth (Verified) Notes:(Chest Portable) Reason For Exam: CHFRESULT: Chest Portable Chest Portable Reason: CHF; Clinical Question(s): CHF COMPARISON: [facility], most recent dated 03/15/2021 FINDINGS: LINES AND TUBES: None. LUNGS AND PLEURA: Interval improvement in the diffuse hazy opacities in both lungs when compared to the prior radiograph, with minimal residual haziness in the lung bases, likely due to resolution of pulmonary edema and/or atelectasis. No right pleural effusion. Probable trace left pleural effusion. Decreased central pulmonary vascular congestion. No pneumothorax. HEART, MEDIASTINUM AND PARDEEP: Mild enlarged cardiac silhouette. Normal upper mediastinal and hilar contour. BONES AND SOFT TISSUES: No acute abnormality. IMPRESSION: Interval improvement in bilateral interstitial pulmonary edema and central vascular congestion compared to the prior radiograph, with residual hazy opacities in the lung bases,? Residual pulmonary edema/atelectasis and probable trace left pleural effusion. WSN: [id number] Ordering Physician: Yasmin Restrepo Dictated By: Rossi Cole MD Dictated Date/Time: 03/16/21 12:04 p Reviewed By: Rossi Cole MD Signed By: Rossi Cole MD Signed Date/Time: 03/16/21 12:04 pm Transcribed By: CASSIDY Transcribed Date/Time: 03/16/21 12:02 pm Exam Date Time Procedure Performing Provider Status 03/15/21 6:04 AM Chest Portable Jennifer Saxena; Auth (Jonathan lopez) Notes:(Chest Portable) Reason For Exam: Shortness of BreathRESULT: Chest Portable Chest Portable Hx of Present Illness: Pt arrives [facility] from home with c o lethargy, cough x 4 days. pt is o2 dep on 2lNC. Per EMS pt was 84% on arrival.; Reason: Shortness of Breath; Clinical Question(s): CHF COMPARISON: 02/12/2020 FINDINGS: LINES AND TUBES: None. LUNGS AND PLEURA: Hazy airspace opacities throughout both lungs. Engorged pulmonary vascularity. Large rounded nodular density in the right hilum, likely right enlarged main pulmonary artery. Left costophrenic angle is obscured with possible small pleural effusion. No right pleural effusion. No pneumothorax. HEART, MEDIASTINUM AND PARDEEP: Moderate prominence of the cardiac silhouette, unchanged. Unchanged upper mediastinal and hilar contour. BONES AND SOFT TISSUES: No acute abnormality. IMPRESSION: Hazy airspace opacities throughout bilateral lungs with engorged vasculature and cardiomegaly most suggestive of florid pulmonary edema. Repeat chest radiograph is recommended following resolution of acute illness for evaluation of the pulmonary vasculature, which likely accounts for appearance of the right hilum on this exam. WSN: [id number] Ordering Physician: Adrianne Patiño Dictated By: Jayson Abebe MD Dictated Date/Time: 03/15/21 8:32 am Reviewed By: Jayson Abebe MD Signed By: Jayson Abebe MD Signed Date/Time: 03/15/21 8:32 am Transcribed By: CASSIDY Transcribed Date/Time: 03/15/21 8:28 am Vital Signs Most recent to oldest 1 2 3 [Reference Range]: Height 168 cm 168 cm 168 cm (03/19/21 12:00 PM) (03/19/21 5:52 AM) (03/19/21 12 :23 AM) Weight 137.8 kg 140.5 kg 145 kg (03/19/21 6:01 AM) (03/17/21 7:00 PM) (03/15/21 4:4 1 PM) Oxygen Saturation [94-100 94 % 94 % 93 % %] (03/19/21 12:00 PM) (03/19/21 8:00 AM) *L* (03/19/21 5:52 AM ) Pulse Rate [55-90 bpm] 54 bpm 56 bpm 77 bpm *L* (03/19/21 8:00 AM) (03/19/21 5:52 AM) (03/19/21 12:00 PM) Body Mass Index 51.37 [18.5-24.99] *>HHI* (03/15/21 4:41 PM) Blood Pressure 141/73 mm Hg 128/82 mm Hg 124/77 mm Hg [90-138/55-84 mm Hg] *H* (03/19/21 8:00 AM) (03/19/21 5:52 AM) (03/19/21 12:00 PM) Respiratory Rate [16-30 18 br/min 18 br/min 18 br/mi n br/min] (03/19/21 12:00 PM) (03/19/21 8:00 AM) (03/19/21 5: 52 AM) Temperature [96.8-100.4 98.2 DegF 98.4 DegF 98.1 Deg F DegF] (03/19/21 12:00 PM) (03/19/21 8:00 AM) (03/19/21 12 :23 AM) Liters per Minute 2 L/min 3 L/min 3 L/min (03/19/21 12:00 PM) (03/19/21 8:00 AM) (03/19/21 5: 52 AM) Mode of Delivery (Oxygen) Other: tanner Nasal cannula Nasal cannula (03/19/21 12:00 PM) (03/19/21 8:00 AM) (03/19/21 5: 52 AM) Blood pressure sites Arm, left Arm, left Arm, left (03/19/21 12:00 PM) (03/19/21 8:00 AM) (03/19/21 5: 52 AM) Temperature Route Oral Oral Oral (03/19/21 12:00 PM) (03/19/21 12:23 AM) (03/18/21 7 :39 PM) Dry Weight 145 kg 135 kg 135 kg (03/15/21 4:41 PM) (03/15/21 6:33 AM) (03/15/21 4:5 3 AM) Weight Obtained Via Bed scale Bed scale (03/19/21 6:01 AM) (03/17/21 7:00 PM) Dry Weight Obtained Via Patient/family stated (03/15/21 4:53 AM) Social History Social History Type Response Tobacco Use: 4 or less cigarettes(le ss than 1/4 pack)/day in last 30 days. Sex
--- OUTSIDE RECORDS SUMMARY | 2022-03-04 00:52 | XMS_ITS | Continuity of Care Document ---
:[address] [facility] Address [address] [place] [address]- Care Team Providers Name Role Phone Dhiraj LEGGETT, Blanca Primary Care Physician [id number] Date(s): 05/16/20 - 05/23/20 [place] [address]- Attending Physician: Fred Esquivel MD Admitting Physician: Fred Esquivel MD Referring Physician: Alyx Wright Allergies, Adverse Reactions, Alerts Substance Reaction Severity Status NKA Active Medications aspirin 81 mg oral delayed release tablet 81 mg, By Mouth, Daily, # 30 tablet, Refills 3, Tot. Refills 3, Maintenance, 02/20/20 9:09:00 EST, Route to Pharmacy Electronically, [facility], Partial fill upon patient request if the prescription is for a schedule II opioid drug., 167... Start Date: 02/20/20 Status: Orderedatorvastatin 40 mg oral tablet 1 tablet = 40 mg, By Mouth, Daily at bedtime, # 30 tablet, 3 Refills, Maintenance, 02/20/20 9:09:00 EST, Tablet, [facility], Partial fill upon patient request if the prescription is for aschedule II opioid drug., 167, cm, 02/20/20 8:05:... Start Date: 02/20/20 Status: Orderedspironolactone 25 mg oral tablet 25 mg, 1, tablet, By Mouth, Daily, # 30 tablet, Refills 3, Tot. Refills 3, Maintenance, 02/20/20 9:09:00 EST, Route to Pharmacy Electronically, [facility], Partial fill upon patient request if the prescription is for a schedule II opioid... Start Date: 02/20/20 Status: Orderedtorsemide 20 mg oral tablet 1 tablet = 20 mg, By Mouth, Daily, # 30 tablet, 3 Refills, Maintenance, 02/20/20 9:09:00 EST, Tablet, [facility], Partial fill upon patient request if the prescription is for a schedule II opioid drug., 167, cm, 02/20/20 8:05:00 EST, Hei... Start Date: 02/20/20 Status: Ordered Problem List Condition Effective Dates Status Health Status Informant Uterovaginal Prolapse, Active Complete(Confirmed) Vital Signs Most recent to oldest [Reference Range]: 1 Height 167 cm (05/16/20 9:37 AM) Weight 116.8 kg (05/16/20 9:37 AM) Oxygen Saturation [94-100 %] 96 % (05/16/20 9:37 AM) Pulse Rate [55-90 bpm] 72 bpm (05/16/20 9:37 AM) Body Mass Index [18.5-24.99] 41.88 *>HHI* (05/16/20 9:37 AM) Blood Pressure [90-138/55-84 mm Hg] 118/68 mm Hg (05/16/20 9:37 AM) Mode of Delivery (Oxygen) Room air (05/16/20 9:37 AM) Weight Obtained Via Patient/family stated (05/16/20 9:37 AM) Social History Social History Type Response Tobacco Use: 4 or less cigarettes(le ss than 1/4 pack)/day in last 30 days. Sex
--- OUTSIDE RECORDS SUMMARY | 2022-03-04 00:52 | XMS_ITS | Continuity of Care Document ---
:1945 Author Organization [facility] Address [address] [place] [id number]- Care Team Providers Name Role Phone Blanca Hearn NP Primary Care Physician Encounter [facility] Date(s): 02/19/20 - 03/20/[address] [address]- Attending Physician: Not on Staff, Attending MD Admitting Physician: Not on Staff, Admitting MD Referring Physician: Not on Staff, Referring MD Allergies, Adverse Reactions, Alerts Substance Reaction Severity Status NKA Active Medications aspirin 81 mg oral delayed release tablet 81 mg, By Mouth, Daily, # 30 tablet, Refills 3, Tot. Refills 3, Maintenance, 02/20/20 9:09:00 EST, Route to Pharmacy Electronically, [facility], Partial fill upon patient request if the prescription is for a schedule II opioid drug., 167... Start Date: 02/20/20 Status: Orderedatorvastatin 40 mg oral tablet 1 tablet = 40 mg, By Mouth, Daily at bedtime, # 30 tablet, 3 Refills, Maintenance, 02/20/20 9:09:00 EST, Tablet, [facility], Partial fill upon patient request if the prescription is for aschedule II opioid drug., 167, cm, 02/20/20 8:05:... Start Date: 02/20/20 Status: Orderedspironolactone 25 mg oral tablet 25 mg, 1, tablet, By Mouth, Daily, # 30 tablet, Refills 3, Tot. Refills 3, Maintenance, 02/20/20 9:09:00 EST, Route to Pharmacy Electronically, [facility], Partial fill upon patient request if the prescription is for a schedule II opioid... Start Date: 02/20/20 Status: Orderedtorsemide 20 mg oral tablet 1 tablet = 20 mg, By Mouth, Daily, # 30 tablet, 3 Refills, Maintenance, 02/20/20 9:09:00 EST, Tablet, [facility], Partial fill upon patient request if [...]
--- OUTSIDE RECORDS SUMMARY | 2022-03-04 00:52 | XMS_ITS | Continuity of Care Document ---
:1945 Author Organization [facility] Address [address] [place] [id number]- Care Team Providers Name Role Phone Dhiraj LEGGETT, Blanca Primary Care Physician [place] [facility] [place] 12/02/[address] [id number] Encounter Diagnosis Sinus pause (Discharge Diagnosis) - 11/25/21 Discharge Disposition: Transferred to short-term general hospit Attending Physician: Venessa Wright MD Admitting Physician: Nelia Mcfarlane MD Referring Physician: Not on Staff, Referring [...] II opioid drug. Start Date: 12/02/21 Status: Orderedaspirin 81 mg oral delayed release tablet 81 mg, By Mouth, Daily, # 30 tablet, Refills 3, Tot. Refills 3, Maintenance, 02/20/20 9:09:00 EST, Route to Pharmacy Electronically, [facility], Partial fill upon patient request if the prescription is for a schedule II opioid drug., 167... Start Date: 02/20/20 Status: Orderedatorvastatin 40 mg oral tablet 1 tablet = 40 mg, By Mouth, Daily at bedtime, # 30 tablet, 3 Refills, Maintenance, 02/20/20 9:09:00 EST, Tablet, [facility], Partial fill upon patient request if the prescription is for aschedule II opioid drug., 167, cm, 02/20/20 8:05:... Start Date: 02/20/20 Status: OrderedColace sodium 100 mg oral capsule [...] 17:04:56EDT, Compound Start Date: 08/12/18 Status: Orderedergocalciferol 52151 iu oral capsule By Mouth, Every week, Refills 0, Maintenance, 12/02/21 11:18:00 EDT, Partial fill upon patient request if the prescription is for a schedule II opioid drug. Start Date: 12/02/21 Status: Orderedlactulose 10 gm/15 ml oral syrup 30 mL = 20 Gm, By Mouth, 3 times a day, 0 Refills, Maintenance, 12/02/21 11:19:00 EDT, Syrup, Partial fill upon patient request if the prescription is for a schedule II opioid drug. Start Date: 12/02/21 Status: OrderedMultivit Therapeutic/Minerals Tablet 1 tablet, By Mouth, Daily, 0 Refills, Maintenance, 12/02/21 11:19:00 EDT, Tablet, Partial fill upon patient request if the prescription is for a schedule II opioid drug. Start Date: 12/02/21 Status: OrderedPhos-NaK Oral Powder 1 pack/packet, By [...] EDT, Inhalation Suspension Start Date: 12/02/21 Status: OrderedSalinex [place] 1 sprays, Nares, Both, 4 times a day, PRN Other, dryness, 0 Refills, Maintenance, 12/02/21 11:19:00 EDT, Nasal [place], Partial fill upon patient request if the prescription is for a schedule II opioid drug. Start Date: 12/02/21 Status: OrderedSenna 8.6 mg oral tablet 17.2 mg, 2, tablet, By Mouth, Daily, Refills 0, Maintenance, 12/02/21 11:19:00 EDT, Tablet, Partial fill upon patient request if the prescription is for a schedule II opioid drug. Start Date: 12/02/21 Status: Orderedthiamine 100 mg oral tablet 100 mg, 1, tablet, By Mouth, Daily, Refills 0, Maintenance, 12/02/21 11:19:00 EDT, Partial fill uponpatient request if the prescription is for a schedule II opioid drug. Start Date: 12/02/21 Status: Orderedtorsemide 20 mg oral tablet 1 tablet = 20 mg, By Mouth, Daily, # 30 tablet, 3 Refills, Maintenance, 02/20/20 9:09:00 EST, Tablet, [facility], Partial fill upon patient request if the prescription is for a schedule II opioid drug., 167, cm, 02/20/20 8:05:00 EST, Hei... Start Date: 02/20/20 Status: OrderedTylenol 325 mg oral tablet 975 mg, 3, tablet, By Mouth, Every 6 hours, PRN, Refills 0, Maintenance, Pain , Mild, 12/02/21 11:18:00 EDT, Partial fill upon patient request if the prescription is for a schedule II opioid drug. Start Date: 12/02/21 Status: Ordered Problem List Condition Confirmation Course Effective Dates Status Health Stat us Informant Chronic diastolic Confirmed Active CHF (congestive heart failure) Stage 3a chronic Confirmed Active kidney disease (CKD) COPD without Confirmed Active exacerbation HLD Confirmed Active (hyperlipidemia) Morbid obesity Confirmed Active Severe obesity Confirmed Active Uterovaginal Confirmed Active Prolapse, Complete Diagnosis Diagnosis Type Effective Dates Health Status Clinical Serv ice Informant Sinus pause Discharge 11/25/21 Diagnosis Results Radiology Reports Exam Date Time Procedure Performing Provider Status 11/29/21 10:03 AM Chest Portable Douglas Garnica; Auth (Verified) Notes:(Chest Portable) Reason For Exam: CHFRESULT: Chest Portable PROCEDURE: Chest Portable CLINICAL INDICATION: 76 years old Female with Reason: CHF; Clinical Question(s): CHF. COMPARISON: Chest radiographs 2021November 27, 2021. FINDINGS: Portable AP semierect view of the chest performed at 9:23 AM. Lines and tubes: Several EKG leads project over the chest. Lungs and pleura: Medial RIGHT upper lobe mass abutting the mediastinum near the apex again seen measuring 8 cm. Just inferior to this nodule measuring 2 cm is again seen. Mild linear atelectasis at the LEFT lung base again noted.. No pleural effusions.No evidence of pneumothorax. Heart, mediastinum and turner: Mild tortuosity and calcification of the thoracic aorta noted. Mild unchanged cardiomegaly without pulmonary venous hypertension. Bones and soft tissues: Moderate degenerative changes in the thoracic spine. No suspicious osseous lesions. IMPRESSION: 1. Mild linear atelectasis LEFT lung base. 2. Mild cardiomegaly without evidence of decompensation. 3. 8 cm mass and 2 cm nodule in the RIGHT upper lobe unchanged. Thank you for allowing me to participate in the care of this patient. WSN: [id number] Ordering Physician: María Murray Dictated By: Leonard Moscoso MD Dictated Date/Time: 11/29/21 10:38 a Reviewed By: Leonard Moscoso MD Signed By: Leonard Moscoso MD Signed Date/Time: 11/29/21 10:38 am Transcribed By: CASSIDY Transcribed Date/Time: 11/29/21 10:36 am Exam Date Time Procedure Performing Provider Status 11/27/21 9:05 AM Chest Portable Yaquelin Watson; Auth (Verified) Notes:(Chest Portable) Reason For Exam: CHFRESULT: Chest Portable Chest Portable Reason: CHF; Clinical Question(s): CHF COMPARISON: Priors, most recent dated 11/22/2021 FINDINGS: LINES AND TUBES: Degenerative pad noted overlying the right lower chest wall. LUNGS AND PLEURA: Stable masslike opacity in the right upper perihilar region . Mild left retrocardiac opacity and minimal right basilar opacity, likely due to atelectasis. Probable small left pleural effusion. No right pleural effusion. No pneumothorax. HEART, MEDIASTINUM AND TURNER: Stable enlarged cardiac silhouette. Normal mediastinal and hilar contour. BONES AND SOFT TISSUES: No acute abnormality. IMPRESSION: Large right upper lobe mass, better seen on the recent prior CT chest. Mild bibasilar opacities, left greater than right, probably due to atelectasis. Probable small left pleural effusion. WSN: [id number] Ordering Physician: María Murray Dictated By: Rossi Cole MD Dictated Date/Time: 11/27/21 12:44 p Reviewed By: Rossi Cole MD Signed By: Rossi Cole MD Signed Date/Time: 11/27/21 12:44 pm Transcribed By: CASSIDY Transcribed Date/Time: 11/27/21 12:41 pm Exam Date Time Procedure Performing Provider Status 11/22/21 3:26 PM Chest Portable Leola Redmond; Nkechi (Verified) Notes:(Chest Portable) Reason For Exam: CoughRESULT: Chest Portable Chest Portable Reason: Cough; Clinical Question(s): CHF COMPARISON: 11/20/2021 FINDINGS: LINES AND TUBES: None. LUNGS AND PLEURA: Increased opacity within the hilar and infrahilar region. Large mass within the right upper lobe as seen on the previous exam. No pleural effusion. No pneumothorax. HEART, MEDIASTINUM AND TURNER: Heart is normal in size. Normal mediastinal and hilar contour. BONES AND SOFT TISSUES: No acute abnormality. IMPRESSION: CHF. Underlying pneumonia cannot be excluded. Large mass within the right upper lobe. WSN: [id number] Ordering Physician: Eliel Sullivan Dictated By: Jamila Hermosillo MD Dictated Date/Time: 11/22/21 3:48 pm Reviewed By: Jamila Hermosillo MD Signed By: Jamila Hermosillo MD Signed Date/Time: 11/22/21 3:48 pm Transcribed By: CASSIDY Transcribed Date/Time: 11/22/21 3:47 pm Exam Date Time Procedure Performing Provider Status 11/20/21 6:29 PM XR Hip w/Pelvis 2-3 View Left Desrosalessia, Iveth; Auth (Verified) Notes:(XR Hip w/Pelvis 2-3 View Left) Reason For Exam: PainRESULT: XR Hip w/Pelvis 2-3 View Left XR Hip w/Pelvis 2-3 View Left Hx of Present Illness: pt endorses dark urine, fatigue, anorexia. per pt's daughter, pt has been confused; Reason: Pain; Clinical Question(s): Fracture COMPARISON: None. FINDINGS: Subtle irregular lucency projecting through the left acetabulum appreciated on AP pelvis. Moderate degenerative changes of the sacroiliac joints. Severe degenerative changes of the lower lumbar spine. Mild degenerative changes of the hips. Normal soft tissues. IMPRESSION: Subtle irregular lucency through the left acetabulum appreciated on AP pelvis. Please consider dedicated evaluation with CT, in order to evaluate for underlying pelvic fracture. Moderate degenerative changes of the sacroiliac joints. Advanced degenerative changes of the lower lumbar spine. WSN: [id number] Ordering Physician: Osmar Montanez Dictated By: Jayson Abebe MD Dictated Date/Time: 11/20/21 6:42 pm Reviewed By: Jayson Abebe MD Signed By: Jayson Abebe MD Signed Date/Time: 11/20/21 6:42 pm Transcribed By: CASSIDY Transcribed Date/Time: 11/20/21 6:36 pm Exam Date Time Procedure Performing Provider Status 11/20/21 6:29 PM Knee 1 or 2 Views Left Aldair, Iveth; Auth ( Verified) Notes:(Knee 1 or 2 Views Left) Reason For Exam: PainRESULT: Knee 1 or 2 Views Left Knee 1 or 2 Views Left, 2 views Hx of Present Illness: pt endorses dark urine, fatigue, anorexia. per pt's daughter, pt has been confused; Reason: Pain; Clinical Question(s): Fracture COMPARISON: None. FINDINGS: No acute fracture. Mild diffuse osteopenia. Advanced tricompartmental osteoarthritic changes. Joint bodies present. No knee joint effusion. IMPRESSION: No acute fracture. Findings, as above. WSN: [id number] Ordering Physician: Osmar Montanez Dictated By: Soco Peace MD Dictated Date/Time: 11/20/21 6:36 pm Reviewed By: Soco Peace MD Signed By: Soco Peace MD Signed Date/Time: 11/20/21 6:36 pm Transcribed By: CASSIDY Transcribed Date/Time: 11/20/21 6:34 pm Exam Date Time Procedure Performing Provider Status 11/20/21 6:29 PM Ankle Min 3 Views Left Iveth Quinteros; Auth ( Verified) Notes:(Ankle Min 3 Views Left) Reason For Exam: PainRESULT: Ankle Min 3 Views Left Ankle Min 3 Views Left Hx of Present Illness: pt endorses dark urine, fatigue, anorexia. per pt's daughter, pt has been confused; Reason: Pain; Clinical Question(s): Fracture COMPARISON: None. FINDINGS: No evidence of acute or healing fracture. Sclerosis seen in the distal tibia is likely a enchondroma. Intact ankle mortise and talar dome. Moderate degenerative changes. Enthesophyte at the insertion of Achilles tendon, and plantar enthesophytes. Soft tissue swelling at the level of the ankle, greater at the medial malleolus and extending to thelevel of the hindfoot. IMPRESSION: Soft tissue swelling. No acute fracture. WSN: [id number] Ordering Physician: Osmar Montanez Dictated By: Soco Peace MD Dictated Date/Time: 11/20/21 6:34 pm Reviewed By: Soco Peace MD Signed By: Soco Peace MD Signed Date/Time: 11/20/21 6:34 pm Transcribed By: CASSIDY Transcribed Date/Time: 11/20/21 6:31 pm Exam Date Time Procedure Performing Provider Status 11/20/21 6:29 PM Chest 2 Views Frontal and Lat Iveth Quinteros; Auth (Verified) Notes:(Chest 2 Views Frontal and Lat) Reason For Exam: Shortness of Breath, Fever;Other:RESULT: Chest 2 Views Frontal and Lat Chest 2 Views Frontal and Lat Hx of Present Illness: pt endorses dark urine, fatigue, anorexia. per pt's daughter, pt has been confused; Reason: Other:; Shortness of Breath, Fever; Clinical Question(s): Pneumonia COMPARISON: 03/16/2021, 03/15/2021, 02/12/2020 FINDINGS: LINES AND TUBES: None. LUNGS AND PLEURA: New right upper lung mass measures 7.4 cm. Engorgement of central pulmonary vascularity. No pleural effusion. No pneumothorax. HEART, MEDIASTINUM AND TURNER: Unchanged cardiomegaly. Aortic calcifications. BONES AND SOFT TISSUES: No acute abnormality. IMPRESSION: Right upper lung mass measures 7.4 cm. Dedicated evaluation with CT is recommended. A critical result message (Yellow) has been communicated via the [employer] system on 11/20/2021 6:36 PM, Message ID [id number]. WSN: [id number] Ordering Physician: Osmar Montanez Dictated By: Jayson Abebe MD Dictated Date/Time: 11/20/21 6:36 pm Reviewed By: Jayson Abebe MD Signed By: Jayson Abebe MD Signed Date/Time: 11/20/21 6:36 pm Transcribed By: CASSIDY Transcribed Date/Time: 11/20/21 6:30 pm Vital Signs Most recent to oldest 1 2 3 [Reference Range]: Height 159 cm 159 cm 159 cm (12/02/21 8:14 AM) (12/01/21 12:36 PM) (12/01/21 8:06 AM) Weight 134.8 kg 133.2 kg 133.3 kg (12/01/21 1:29 AM) (11/27/21 4:00 AM) (11/26/21 9: 00 AM) Oxygen Saturation [94-100 97 % 95 % 94 % %] (12/02/21 2:00 PM) (12/02/21 8:14 AM) (12/02/21 2:00 AM) Pulse Rate [55-90 bpm] 62 bpm 74 bpm 69 bpm (12/02/21 2:00 PM) (12/02/21 8:14 AM) (12/02/21 2:00 AM) Body Mass Index [18.5-24.99 53.32 kg/m2 47.74 kg/m2 kg/m2] *>HHI* *>HHI* (12/01/21 1:29 AM) (11/21/21 6:47 PM) Blood Pressure 112/54 mm Hg 125/56 mm Hg 143/59 mm Hg [90-138/55-84 mm Hg] (12/02/21 2:00 PM) (12/02/21 8:14 AM) *H* (12/02/21 2:00 A M) Respiratory Rate [16-30 18 br/min 18 br/min 18 br/mi n br/min] (12/02/21 2:00 PM) (12/02/21 8:14 AM) (12/02/21 2:00 AM) Temperature [96.8-100.4 98.8 DegF 98.0 DegF 98.9 Deg F DegF] (12/02/21 2:00 PM) (12/02/21 8:14 AM) (12/02/21 2:00 AM) Liters per Minute 2 L/min 6 L/min 4 L/min (12/02/21 2:00 PM) (12/02/21 8:14 AM) (12/01/21 7:00 PM) Mode of Delivery (Oxygen) Nasal cannula Nasal cannula CPAP (12/02/21 2:00 PM) (12/02/21 8:14 AM) (12/02/21 2:00 AM) Blood pressure sites Arm, right Arm, right Arm, right (12/02/21 2:00 PM) (12/02/21 2:00 AM) (12/01/21 7:00 PM) Temperature Route Oral Oral Oral (12/02/21 2:00 PM) (12/02/21 8:14 AM) (12/02/21 2:00 AM) Dry Weight 120 kg (11/21/21 6:47 PM) Weight Obtained Via Bed scale Bed scale Bed scale (12/01/21 1:29 AM) (11/27/21 4:00 AM) (11/25/21 4: 09 AM) Social History Social History Type Response Tobacco Use: 4 or less cigarettes(le ss than 1/4 pack)/day in last 30 days. Sex Portable XR Chest Views [facility] , CIS S: TRANSCRIBE Leonard Moscoso MD M: VERIFY Event Display: Result: Authored Date: [id number] PROCEDURE: Chest Portable CLINICAL INDICATION: 76 years old Female with Reason: CHF; Clinical Question(s): CHF. COMPARISON: Chest radiographs 2021November 27, 2021. FINDINGS: Portable AP semierect view of the chest performed at 9:23 AM. Lines and tubes: Several EKG leads project over the chest. Lungs and pleura: Medial RIGHT upper lobe mass abutting the mediastinum near the apex again seen measuring 8 cm. Just inferior to this nodule measuring 2 cm is again seen. Mild linear atelectasis at the LEFT lung base again noted.. No pleural effusions.No evidence of pneumothorax. Heart, mediastinum and turner: Mild tortuosity and calcification of the thoracic aorta noted. Mild unchanged cardiomegaly without pulmonary venous hypertension. Bones and soft tissues: Moderate degenerative changes in the thoracic spine. No suspicious osseous lesions. IMPRESSION: 1. Mild linear atelectasis LEFT lung base. 2. Mild cardiomegaly without evidence of decompensation. 3. 8 cm mass and 2 cm nodule in the RIGHT upper lobe unchanged. Thank you for allowing me to participate in the care of this patient. WSN: [id number] Ordering Physician: María Murray Dictated By: Leonard Moscoso MD Dictated Date/Time: 11/29/21 10:38 a Reviewed By: Leonard Moscoso MD Signed By: Leonard Moscoso MD Signed Date/Time: 11/29/21 10:38 am Transcribed By: CASSIDY Transcribed Date/Time: 11/29/21 10:36 [facility] , CIS S: TRANSCRIBE Rossi Cole MD: VERIFY Event Display: Result: Authored Date: [id number] Chest Portable Reason: CHF; Clinical Question(s): CHF COMPARISON: Priors, most recent dated 11/22/2021 FINDINGS: LINES AND TUBES: Degenerative pad noted overlying the right lower chest wall. LUNGS AND PLEURA: Stable masslike opacity in the right upper perihilar region . Mild left retrocardiac opacity and minimal right basilar opacity, likely due to atelectasis. Probable small left pleural effusion. No right pleural effusion. No pneumothorax. HEART, MEDIASTINUM AND TURNER: Stable enlarged cardiac silhouette. Normal mediastinal and hilar contour. BONES AND SOFT TISSUES: No acute abnormality. IMPRESSION: Large right upper lobe mass, better seen on the recent prior CT chest. Mild bibasilar opacities, left greater than right, probably due to atelectasis. Probable small left pleural effusion. WSN: [id number] Ordering Physician: María Murray Dictated By: Rossi Cole MD Dictated Date/Time: 11/27/21 12:44 p Reviewed By: Rossi Cole MD Signed By: Rossi Cole MD Signed Date/Time: 11/27/21 12:44 pm Transcribed By: CASSIDY Transcribed Date/Time: 11/27/21 12:41 pm[facility]SP[facility] , CIS S: TRANSCRIJamila Schaffer MD: VERIFY Event Display: Result: Authored Date: [id number] Chest Portable Reason: Cough; Clinical Question(s): CHF COMPARISON: 11/20/2021 FINDINGS: LINES AND TUBES: None. LUNGS AND PLEURA: Increased opacity within the hilar and infrahilar region. Large mass within the right upper lobe as seen on the previous exam. No pleural effusion. No pneumothorax. HEART, MEDIASTINUM AND TURNER: Heart is normal in size. Normal mediastinal and hilar contour. BONES AND SOFT TISSUES: No acute abnormality. IMPRESSION: CHF. Underlying pneumonia cannot be excluded. Large mass within the right upper lobe. WSN: [id number] Ordering Physician: Eliel Sullivan Dictated By: Jamila Hermosillo MD Dictated Date/Time: 11/22/21 3:48 pm Reviewed By: Jamila Hermosillo MD Signed By: Jamila Hermosillo MD Signed Date/Time: 11/22/21 3:48 pm Transcribed By: CASSIDY Transcribed Date/Time: 11/22/21 3:47 pm XR Ankle - left GE 3 Views [facility] , CIS S: TRANSCRISoco Wolf MD: VERIFY Event Display: Result: Authored Date: [id number] Ankle Min 3 Views Left Hx of Present Illness: pt endorses dark urine, fatigue, anorexia. per pt's daughter, pt has been confused; Reason: Pain; Clinical Question(s): Fracture COMPARISON: None. FINDINGS: No evidence of acute or healing fracture. Sclerosis seen in the distal tibia is likely a enchondroma. Intact ankle mortise and talar dome. Moderate degenerative changes. Enthesophyte at the insertion of Achilles tendon, and plantar enthesophytes. Soft tissue swelling at the level of the ankle, greater at the medial malleolus and extending to thelevel of the hindfoot. IMPRESSION: Soft tissue swelling. No acute fracture. WSN: [id number] Ordering Physician: Osmar Montanez Dictated By: Soco Peace MD Dictated Date/Time: 11/20/21 6:34 pm Reviewed By: Soco Peace MD Signed By: Soco Peace MD Signed Date/Time: 11/20/21 6:34 pm Transcribed By: CASSIDY Transcribed Date/Time: 11/20/21 6:31 pm Note [facility] , CIS S: TRANSCRIBE Jayson Abebe MD: VERIFY Event Display: Result: Authored Date: [id number] Chest 2 Views Frontal and Lat Hx of Present Illness: pt endorses dark urine, fatigue, anorexia. per pt's daughter, pt has been confused; Reason: Other:; Shortness of Breath, Fever; Clinical Question(s): Pneumonia COMPARISON: 03/16/2021, 03/15/2021, 02/12/2020 FINDINGS: LINES AND TUBES: None. LUNGS AND PLEURA: New right upper lung mass measures 7.4 cm. Engorgement of central pulmonary vascularity. No pleural effusion. No pneumothorax. HEART, MEDIASTINUM AND TURNER: Unchanged cardiomegaly. Aortic calcifications. BONES AND SOFT TISSUES: No acute abnormality. IMPRESSION: Right upper lung mass measures 7.4 cm. Dedicated evaluation with CT is recommended. A critical result message (Yellow) has been communicated via the [employer] system on 11/20/2021 6:36 PM, Message ID [id number]. WSN: [id number] Ordering Physician: Osmar Montanez Dictated By: Jayson Abebe MD Dictated Date/Time: 11/20/21 6:36 pm Reviewed By: Jayson Abebe MD Signed By: Jayson Abebe MD Signed Date/Time: 11/20/21 6:36 pm Transcribed By: CSDonnell Transcribed Date/Time: 11/20/21 6:30 pm XR Knee - left 1 or 2 Views [facility] , CIS S: TRANSCRISoco Wolf MD: VERIFY Event Display: Result: Authored Date: [id number] Knee 1 or 2 Views Left, 2 views Hx of Present Illness: pt endorses dark urine, fatigue, anorexia. per pt's daughter, pt has been confused; Reason: Pain; Clinical Question(s): Fracture COMPARISON: None. FINDINGS: No acute fracture. Mild diffuse osteopenia. Advanced tricompartmental osteoarthritic changes. Joint bodies present. No knee joint effusion. IMPRESSION: No acute fracture. Findings, as above. WSN: [id number] Ordering Physician: Osmar Montaenz Dictated By: Soco Peace MD Dictated Date/Time: 11/20/21 6:36 pm Reviewed By: Soco Peace MD Signed By: Soco Peace MD Signed Date/Time: 11/20/21 6:36 pm Transcribed By: CASSIDY Transcribed Date/Time: 11/20/21 6:34 pm XR Pelvis and Hip - left Views [facility] , CIS S: TRANSCJayson Noble MD: VERIFY Event Display: Result: Authored Date: [id number] XR Hip w/Pelvis 2-3 View Left Hx of Present Illness: pt endorses dark urine, fatigue, anorexia. per pt's daughter, pt has been confused; Reason: Pain; Clinical Question(s): Fracture COMPARISON: None. FINDINGS: Subtle irregular lucency projecting through the left acetabulum appreciated on AP pelvis. Moderate degenerative changes of the sacroiliac joints. Severe degenerative changes of the lower lumbar spine. Mild degenerative changes of the hips. Normal soft tissues. IMPRESSION: Subtle irregular lucency through the left acetabulum appreciated on AP pelvis. Please consider dedicated evaluation with CT, in order to evaluate for underlying pelvic fracture. Moderate degenerative changes of the sacroiliac joints. Advanced degenerative changes of the lower lumbar spine. WSN: [id number] Ordering Physician: Osmar Montanez Dictated By: Jayson Abebe MD Dictated Date/Time: 11/20/21 6:42 pm Reviewed By: Jayson Abebe MD Signed By: Jayson Abebe MD Signed Date/Time: 11/20/21 6:42 pm Transcribed By: CASSIDY Transcribed Date/Time: 11/20/21 6:36 pm Patient Care team information PersonnelName: Blanca Hearn NP Address: Address: [address] [place] [id number]
--- OUTSIDE RECORDS SUMMARY | 2022-03-04 00:52 | XMS_ITS | Continuity of Care Document ---
:1945 Author Organization [facility] Address [address] [place] [id number]- Care Team Providers Name Role Phone Dhiraj LEGGETT, Blanca Primary Care Physician Encounter 02/22/20 - 04/19/20 [facility] [address] [place] [id number]- Discharge Disposition: CLIENT NO LONGER REQUIRES SKILLED CARE Allergies, Adverse Reactions, Alerts Substance Reaction Severity Status NKA Active Medications aspirin 81 mg oral delayed release tablet 81 mg, By Mouth, Daily, # 30 tablet, Refills 3, Tot. Refills 3, Maintenance, 02/20/20 9:09:00 EST, Route to Pharmacy Electronically, [facility], Partial fill upon patient request if the prescription is for a schedule II opioid drug., 167... Start Date: 02/20/20 Status: Orderedatorvastatin 40 mg oral tablet 1 tablet = 40 mg, By Mouth, Daily at bedtime, # 30 tablet, 3 Refills, Maintenance, 02/20/20 9:09:00 EST, Tablet, [facility], Partial fill upon patient request if the prescription is for aschedule II opioid drug., 167, cm, 02/20/20 8:05:... Start Date: 02/20/20 Status: Orderedspironolactone 25 mg oral tablet 25 mg, 1, tablet, By Mouth, Daily, # 30 tablet, Refills 3, Tot. Refills 3, Maintenance, 02/20/20 9:09:00 EST, Route to Pharmacy Electronically, [facility], Partial fill upon patient request if the prescription is for a schedule II opioid... Start Date: 02/20/20 Status: Orderedtorsemide 20 mg oral tablet 1 tablet = 20 mg, By Mouth, Daily, # 30 tablet, 3 Refills, Maintenance, 02/20/20 9:09:00 EST, Tablet, [facility], Partial fill upon patient request [...]
--- OUTSIDE RECORDS SUMMARY | 2022-03-04 00:52 | XMS_ITS ---
:1945 Author Care Team Providers Name Role Phone [facility] Primary Care Provider [phone] Allergies Code Code System Name Reaction Severity Status Onset NKDA ? Medications Name Status Start Date Stop Date ? ? azithromycin 1 gram oral packet Completed ? 01/04/2020 TAKE 1 PACKAGE BY MOUTH DAILY bacitracin 500 unit/gram eye ointment Active ? Not available clotrimazole-betamethasone 1 %-0.05 % topical cream Completed ? 01/04/2020 doxycycline hyclate 100 mg tablet Completed ? 01/04/2020 erythromycin 5 mg/gram (0.5 %) eye ointment Active ? Not available furosemide 20 mg tablet Active ? Not avai lable germanium Active ? Not available kubmgegv-dmlhizfgh-lgacevjh 3.5 mg/mL-10,000 Active ? Not available unit/mL-0.1% eye drops Problems None recorded. Procedures None recorded. Results Lab Results None recorded. Past Encounters None recorded. Social History None recorded. Vaccine List None recorded. Plan of Care Reminders Provider Appointments None recorded. ? ? Lab None recorded. ? ? Referral None recorded. ? ? Procedures None recorded. ? ? Surgeries None recorded. ? ? Imaging None recorded. ? ? Vitals Blood Pressure 140/70 mm[Hg]
--- OUTSIDE RECORDS SUMMARY | 2022-03-04 00:52 | XMS_ITS | Continuity of Care Document ---
:1945 Author Organization [facility] Address [address] [place] [address]- Care Team Providers Name Role Phone Dhiraj LEGGETT, Blanca Primary Care Physician [id number] Date(s): 04/12/20 - 06/05/20 [facility] [address] [address]- Attending Physician: Fred Esquivel MD Admitting Physician: Fred Esquivel MD Referring Physician: Blanca Hearn NP Allergies, Adverse Reactions, Alerts Substance Reaction Severity Status NKA Active Medications aspirin 81 mg oral delayed release tablet 81 mg, By Mouth, Daily, # 30 tablet, Refills 3, Tot. Refills 3, Maintenance, 02/20/20 9:09:00 EST, Route to Pharmacy Electronically, [facility], Partial fill upon patient request if the prescription is for a schedule II opioid drug., 167... Start Date: 02/20/20 Status: Orderedatorvastatin 40 mg oral tablet 1 tablet = 40 mg, By Mouth, Daily at bedtime, # 30 tablet, 3 Refills, Maintenance, 02/20/20 9:09:00 EST, Tablet, [facility], Partial fill upon patient request if the prescription is for aschedule II opioid drug., 167, cm, 02/20/20 8:05:... Start Date: 02/20/20 Status: Orderedspironolactone 25 mg oral tablet 25 mg, 1, tablet, By Mouth, Daily, # 30 tablet, Refills 3, Tot. Refills 3, Maintenance, 02/20/20 9:09:00 EST, Route to Pharmacy Electronically, [facility], Partial fill upon patient request if the prescription is for a schedule II opioid... Start Date: 02/20/20 Status: Orderedtorsemide 20 mg oral tablet 1 tablet = 20 mg, By Mouth, Daily, # 30 tablet, 3 Refills, Maintenance, 02/20/20 9:09:00 EST, Tablet, [facility], Partial fill upon patient [...]
--- OUTSIDE RECORDS SUMMARY | 2022-03-04 00:52 | XMS_ITS | Continuity of Care Document ---
:1945 Author Organization [facility] Address [address] [place] [address]- Care Team Providers Name Role Phone Dhiraj LEGGETT, Blanca [id number]20 [place] [id number] [address]- Attending Physician: Fred Esquivel MD Admitting Physician: Fred Esquivel MD Referring Physician: Blanca Hearn NP Allergies, Adverse Reactions, Alerts Substance Reaction Severity Status NKA Active Medications aspirin 81 mg oral delayed release tablet 81 mg, By Mouth, Daily, # 30 tablet, Refills 3, Tot. Refills 3, Maintenance, 02/20/20 9:09:00 EST, Route to Pharmacy Electronically, [facility], Partial fill upon patient request if the prescription is for a schedule II opioid drug., 167... Start Date: 02/20/20 Status: Orderedatorvastatin 40 mg oral tablet 1 tablet = 40 mg, By Mouth, Daily at bedtime, # 30 tablet, 3 Refills, Maintenance, 02/20/20 9:09:00 EST, Tablet, [facility], Partial fill upon patient request if the prescription is for aschedule II opioid drug., 167, cm, 02/20/20 8:05:... Start Date: 02/20/20 Status: Orderedspironolactone 25 mg oral tablet 25 mg, 1, tablet, By Mouth, Daily, # 30 tablet, Refills 3, Tot. Refills 3, Maintenance, 02/20/20 9:09:00 EST, Route to Pharmacy Electronically, [facility], Partial fill upon patient request if the prescription is for a schedule II opioid... Start Date: 02/20/20 Status: Orderedtorsemide 20 mg oral tablet 1 tablet = 20 mg, By Mouth, Daily, # 30 tablet, 3 Refills, Maintenance, 02/20/20 9:09:00 EST, Tablet, [facility], Partial fill upon patient request [...]
--- OUTSIDE RECORDS SUMMARY | 2022-03-04 00:52 | XMS_ITS | Continuity of Care Document ---
:1945 Author Organization [facility] Address [address] [place] [id number]- Care Team Providers Name Role Phone Dhiraj LEGGETT, Blanca Primary Care Physician Encounter [facility] Date(s): 02/10/22 - 02/23/[address] [id number] Discharge Disposition: A-Transfer SNF Attending Physician: Aby Sevilla MD Admitting Physician: Arash Arroyo MD Referring Physician: Arash Arroyo MD Allergies, Adverse Reactions, Alerts No Known [...] 02/20/20 9:09:00 EST, Route to Pharmacy Electronically, [facility], Partial fill upon patient request if the prescription is for a schedule II opioid drug., 167... Start Date: 02/20/20 Status: Orderedatorvastatin 40 mg oral tablet 1 tablet = 40 mg, By Mouth, Daily at bedtime, # 30 tablet, 3 Refills, Maintenance, 02/20/20 9:09:00 EST, Tablet, [facility], Partial fill upon [...] 17:04:56EDT, Compound Start Date: 08/12/18 Status: Orderedergocalciferol 46906 iu oral capsule By Mouth, Every week, [...] 3 Refills, Maintenance, 02/20/20 9:09:00 EST, Tablet, [facility], Partial fill upon patient request [...] Confirmed Active Uterovaginal Confirmed Active Prolapse, Complete Results Radiology Reports Exam Date Time Procedure Performing Provider Status 02/14/22 6:35 PM Chest Portable Kristopher Mackey; Nkechi (Verified) Notes:(Chest Portable) Reason For Exam: Line PlacementRESULT: Chest Portable Chest Portable Reason: Line Placement COMPARISON: 02/14, 02/12/2022 and 11/29/2021. FINDINGS: LINES AND TUBES: Dual-chamber cardiac pacemaker again noted. LUNGS AND PLEURA: Very large right upper lobe mass measuring at least 11 cm. This is similar to recent prior x-rays and appears increased when compared to previous exams dating back to November 2021. There is consolidation/infiltrate in the right lower lobe as well and milder atelectasis or infiltrate in the left lung base. Small left pleural effusion. No pneumothorax. HEART, MEDIASTINUM AND PARDEEP: Stable appearing cardiomediastinal silhouette. Stable mediastinal and hilar contour. BONES AND SOFT TISSUES: No acute abnormality. IMPRESSION: Stable appearing chest when compared to recent prior x-rays, including very large right upper lobe mass measuring at least 11 cm. There is consolidation/infiltrate in the right lower lobe as well and milder atelectasis or infiltrate in the left lung base. Small left pleural effusion. WSN: [id number] Ordering Physician: Faith Wakefield Dictated By: Nan Christianson MD, I Dictated Date/Time: 02/14/22 6:55 pm Reviewed By: Nan Christianson MD, I Signed By: Nan Christianson MD, I Signed Date/Time: 02/14/22 6:55 pm Transcribed By: CASSIDY Transcribed Date/Time: 02/14/22 6:50 pm Exam Date Time Procedure Performing Provider Status 02/14/22 10:16 AM Chest Portable Valencia Teague; Nkechi (V erified) Notes:(Chest Portable) Reason For Exam: Shortness of BreathRESULT: Chest Portable Chest Portable Reason: Shortness of Breath COMPARISON: 02/12/2022 FINDINGS: LINES AND TUBES: Similar position of pacer. Overlying monitoring electrodes. LUNGS AND PLEURA: Neck is flexed over the upper chest, limiting evaluation of the apices Persistent asymmetric right upper lung large opacity. There is lower lobe atelectasis. Bilateral small pleural effusions. HEART, MEDIASTINUM AND PARDEEP: Cardiomegaly. Aortic arch atherosclerosis. BONES AND SOFT TISSUES: No radiographic change. IMPRESSION: No radiographic change. There is a known right upper lung mass. Bilateral small pleural effusions with lower lung atelectasis. WSN: [id number] Ordering Physician: Mateusz Abdi Dictated By: Soco Peace MD Dictated Date/Time: 02/14/22 1:49 pm Reviewed By: Soco Peace MD Signed By: Soco Peace MD Signed Date/Time: 02/14/22 1:49 pm Transcribed By: CASSIDY Transcribed Date/Time: 02/14/22 1:47 pm Exam Date Time Procedure Performing Provider Status 02/12/22 5:57 AM Chest 2 Views Frontal and Lat [facility] (Verified) Notes:(Chest 2 Views Frontal and Lat) Reason For Exam: PostopRESULT: Chest 2 Views Frontal and Lat Chest 2 Views Frontal and Lat Reason: Postop; Clinical Question(s): Line Placement; Pneumothorax; Special Instructions: Patient may go unmonitored. Please keep film at back desk COMPARISON: 11/29/2021 FINDINGS: LINES AND TUBES: Interval placement of a left IJ line, tip in region of junction with SVC. There also has been interval placement of a left subclavian dual-lead pacer/AICD. The leads appear to be in satisfactory position. LUNGS AND PLEURA: Large right upper lobe mass again noted. It is difficult to measure as it directly abuts the apical pleura and cannot distinguish between mass border and any adjacent pleural reaction/thickening. Suspect however that it has increased in size since the November exam. There is now some patchy airspace disease at the right base. Left lung clear other than for some platelike atelectasis in the perihilar region. Tiny amounts of pleural fluid blunting the posterior sulci. No pneumothorax. HEART, MEDIASTINUM AND PARDEEP: Stable heart size. Stable mediastinal and hilar contours, once again the right upper mediastinal border indistinct due to the adjacent mass. BONES AND SOFT TISSUES: No acute abnormality. IMPRESSION: 1. Interval placement of dual lead left subclavian pacer/AICD and a left IJ line, positions satisfactory as described above. No pneumothorax. 2. Known right upper lobe mass which likely has increased in size since previous study 11/29/2021, the superior border of the mass no longer visible, suggesting extension to or involvement of the adjacent pleura. 3. Patchy atelectasis and/or infiltrate at the right lung base. WSN: [id number] Ordering Physician: Nicola Bhagat Dictated By: Lenny Moya MD Dictated Date/Time: 02/12/22 10:10 a Reviewed By: Lenny Moya MD Signed By: Lenny Moya MD Signed Date/Time: 02/12/22 10:10 am Transcribed By: CASSIDY Transcribed Date/Time: 02/12/22 10:01 am Vital Signs Most recent to oldest 1 2 3 [Reference Range]: Height 168 cm 168 cm 168 cm (02/23/22 4:10 PM) (02/23/22 12:05 PM) (02/23/22 4:41 AM) Weight 124.2 kg 124.4 kg 124.4 kg (02/23/22 9:00 AM) (02/21/22 8:15 AM) (02/21/22 5: 00 AM) Oxygen Saturation [94-100 94 % 92 % 95 % %] (02/23/22 4:10 PM) *L* (02/23/22 4:41 AM ) (02/23/22 12:05 PM) Pulse Rate [55-90 bpm] 75 bpm 75 bpm 82 bpm (02/23/22 4:10 PM) (02/23/22 12:05 PM) (02/23/22 7:48 AM) Body Mass Index [18.5-24.99 42.52 kg/m2 kg/m2] *>HHI* (02/10/22 12:31 PM) Blood Pressure 144/58 mm Hg 142/57 mm Hg 120/57 mm Hg [90-138/55-84 mm Hg] *H* *H* (02/23/22 7:4 8 AM) (02/23/22 4:10 PM) (02/23/22 12:05 PM) Respiratory Rate [16-30 18 br/min 18 br/min 21 br/mi n br/min] (02/23/22 4:10 PM) (02/23/22 12:05 PM) (02/23/22 4:41 AM) Temperature [96.8-100.4 98.4 DegF 98.9 DegF 98.4 Deg F DegF] (02/23/22 4:10 PM) (02/23/22 12:05 PM) (02/23/22 4:41 AM) Liters per Minute 3 L/min 3 L/min 5 L/min (02/23/22 4:10 PM) (02/23/22 12:05 PM) (02/23/22 4:41 AM) Mode of Delivery (Oxygen) Nasal cannula Nasal cannula Nasal cannula (02/23/22 4:10 PM) (02/23/22 12:05 PM) (02/23/22 4:41 AM) Blood pressure sites Arm, right Arm, right Arm, right (02/23/22 4:10 PM) (02/23/22 12:05 PM) (02/23/22 7:48 AM) Temperature Route Oral Oral Oral (02/23/22 4:10 PM) (02/23/22 12:05 PM) (02/23/22 4:41 AM) Dry Weight 120 kg (02/10/22 12:31 PM) Weight Obtained Via Bed scale Bed scale Bed scale (02/23/22 9:00 AM) (02/21/22 5:00 AM) (02/21/22 1: 43 AM) Social History Social History Type Response Tobacco Use: 4 or less cigarettes(le ss than 1/4 pack)/day in last 30 days. Sex Note Kyle Arndt: PERFORM Event Display: Discharge/Transfer Note Hospital Authored Date: [id number] Nursing Discharge Note Entered On: 02/23/2022 15:48 EST Performed On: 02/23/2022 15:48 EST by Kyle Arndt Nursing Discharge Note 2 Discharge Time : 02/23/2022 18:27 EST Patient Left Unit Via : Ambulance Patient Accompanied Off Unit with : Ambulance/Chair Van Personnel Handover Given to Transport Personnel : Yes DC Instructions Provided & Signed by Pt : Unable Patient Understands D/C Instructions : Unable Patient Instructions Discharge Signed : No Did Pt have Specialty Bed or Wound Vac : Yes Kyle Arndt - 02/23/2022 18:27 EST Discharge Level of Care at Discharge : FDC facility Discharge Nursing Homes/Rehab Facilities : [facility]osp[facility]/Home Care(v001[facility] Kyle Arndt - 02/23/2022 15:48 Aby Coelho MD: PERFORM Event Display: Discharge/Transfer Note Hospital Authored Date: [id number] Patient: ??NAILS, ОЛЕГ ? Age:??76 Years?Sex:??Female?:??1945?? Patient Information Discharge Location: Primary Care Physician: Blanca Hearn NP Admit Date/Time: 02/10/22 12:23 Discharge Disposition Discharge Disposition: Fdc Facility/Rehab Discharge Diagnosis Sinus arrest (I45.5) ?? _ Discharge Medications Acetaminophen (Tylenol 325 mg oral tablet)?650?Milligram?2?tablet?By Mouth?Every 4hours?as needed?Pain , Mild Albuterol (Albuterol 0.083% inhalation moriah)?2.5?Milligram?BAND Nebulizer?Every 2 hours?as needed?Wheezing/Shortness of Breath arformoterol (arformoterol 15 mcg/2 mL inhalation solution)?2?Milliliter?15?Microgram?BAND Nebulizer?2 times a day Ascorbic Acid (ascorbic acid 500 mg oral tablet)?1?tab(s)?500?Milligram?By Mouth?Daily Aspirin (aspirin 81 mg oral delayed release tablet)?81?Milligram?By Mouth?Daily Atorvastatin (atorvastatin 40 mg oral tablet)?1?tab(s)?40?Milligram?By Mouth?Dailyat bedtime Budesonide (Pulmicort Respules 0.5 mg/2 mL inhalation suspension)?0.5?Milligram?Neb?2 times a day Docusate (Colace sodium 100 mg oral capsule)?100?Milligram?1?capsule?By Mouth?2 times a day Durable Medical Equipment (Compression Stockings)?See Instructions?surgical, calf length 20-30mm HgDx: venous insufficiencyOK to dispense open-toed stockings at patient's request Ergocalciferol (ergocalciferol 12821 iu oral capsule)?By Mouth?Every week Melatonin (Melatonin 3 mg oral tablet)?1?tab(s)?3?Milligram?By Mouth?Daily at bedtime?as needed?for insomnia Multivitamin With Minerals (Multivit Therapeutic/Minerals Tablet)?1?tab(s)?By Mouth?Daily Nicotine (nicotine 14 mg/24 hr transdermal film, extended release)?1?patch(es)?Topically?Daily Potassium Phosphate-Sodium Phosphate (Phos-NaK Oral Powder)?1?pack/packet?By Mouth?2 times a day?for 3?Days Thiamine (thiamine 100 mg oral tablet)?100?Milligram?1?tablet?By Mouth?Daily torsemide (torsemide 20 mg oral tablet)?2?tab(s)?40?Milligram?By Mouth?Daily Zinc Acetate (zinc (as acetate) 50 mg oral capsule)?1?capsule?50?Milligram?By Mouth?Daily?on an empty stomach 1 hour before or 2 hours after eating ? Allergies Allergies ?(Active and Proposed Allergies Only) NKA? (Severity: Unknown severity, Onset: Unknown) ? Future Appointments Wednesday 9:30 AM EST ?? With: Aissatou VICTOR, Syed Santana Where: [facility] [address] [place] [address]- Hospital Course 76 y.o. female with PMHx of??acute hypoxic respiratory failure on 4L O2 at home 2/2 COPD, AYDIN not onNIV, HFpEF (LVED 55-65% Echo 11/23/21), chronic diastolic heart failure/cor pulmonale, HLD, HTN, morbid obesity, CKD stage III,??who presented as a transfer from [facility] for sinus arrest and shock. ?? The patient had a recent hospitalization at [facility] 11/20-12/02 for acute on chronic hypoxic and hypercapnic respiratory failure secondary to COPD exacerbation with hospital course complicated by frequent sinus pauses (3 to 6 seconds) and bradycardia for which she was evaluated??by EP with no plan for pacemaker??at that time as pauses thought to be in setting of electrolyte abnormalities (hypercalcemia Ca11.9, PTH 118) and BRITT for which renal was consulted, she received Zometa with improvement.??Patientwas also found to have a new lung mass which at the time she refused inpatient lung??biopsy.??She was discharged on 12/02 to rehab. Patient was admitted to [facility] 02/01 with increased lethargy and generalized weakness. She was found to have worsening mental status nearing unresponsiveness??in the ED??with ABG??7.24 pCO2 100 and Po2 73. She was placed on BiPAP??for??hypercapnic and hypoxemic respiratory failure.??CXR with concerning RUL mass patient was started on CTX and azithromycin for presumed pne umonia, steroids and nebulized bronchodilators for??concurrent COPD exacerbation and??diuresed for question of heart failure exacerbation. Patient was admitted to the ICU at [facility] for worsening mentation at the point of obtundation and was found to have progressive acidosis and was intubated 02/02.??She was extubated the following day after improvement in mental status and acidosis. Prior to extubation,??patient agreed to bronchoscopy of RUL mass??on 02/02 which revealed poorly differentiated squamous cell carcinoma for which Dr. Gilmore from oncology was consulted. Respiratory panel PCR from bronchoscopy returned positive for influenza A despite negative PCR on admission, she was started on Tamiflu. However, patient developed significant bradycardia with intermittent junctional escape and symptomatic during this episodes including somnolence and sensation of feeling off. Tamiflu was??discontinued after one dose but patient continued to have long sinus pauses and cardiology was consulted and??started dopamine drip.??Her hypercalcemia was treated with Zometa, epinephrine was also added 02/07 but discontinued 02/09. Given hypotension, patient briefly started on hydrocortisone, zosyn, levophed and vasopressin but was??discontinued 02/09 and 02/10 respectively. Infectious workup including bloodcultures and lyme antibody negative.??Echocardiogram 02/09 revealed new, reduced EF 35-40% with severe hypokinesis in mid to distal segments with relative hypokinesis at the base, most consistent with a stress cardiomyopathy. On the morning of 02/10, sinus arrhythmia progressed to unstable??sinus arrest??lasting approximately 10 seconds with no escape rhythm for which the patient was unresponsive and hypotensive and was given atropine. Cardiology recommended transfer to [facility], at this time patient wason BiPAP 20/8, 70% FiO2, dopamine infusion at 15mcg/kg/min with external pacer pads on.? On arrival, patient hemodynamically stable, normotensive on dopamine HR 90s satting 94% on 70% Fio2 with CPAP mask on. She has no complaints at this time. ?? patient was then admitted to the medical floor for further management to [facility],??electrophysiology was consulted,??and the patient underwent??permanent pacemaker placement by electrophysiology on??02/11/2022, the patient tolerated the procedure well without immediate complications.?? She was continue to monitor on telemetry??while inpatient,??pulmonary was also consulted??given significant hypoventilation??with recommendation to continue nightly BiPAP.?? She remained on quite high doses of oxygen most of her stay??while inpatient??however that was??weaned down??to??3 to 4 L??of oxygen??which is??baseline.?? I had multiple goals of care discussion with the patient and her daughter??at the bedside with the help of the palliative care team??given the newly diagnosed??right upper lobe??poorly diff erentiated??squamous cell carcinoma of the lung, the patient remained??full code for now.?? She was seen and evaluated by physical therapy with recommendation for??rehab.?? She got accepted to [facility]. ??Therefore, the patient will be discharged in fair but stable condition??to rehab facility.?? She was advised to follow-up with her primary care physician and oncology as outpatient. Objective Assessment and Plan ?? 76 y.o. female with PMHx of acute hypoxic respiratory failure on 4L O2 at home 2/2 COPD, AYDIN not on NIV, HFpEF, chronic diastolic heart failure/cor pulmonale, HLD, HTN, morbid obesity, CKD stage III, who presented as a transfer from [facility] for sinus arrest s/p pacemaker,??shock likely 2/2 hypovolemia now resolved,??with persistent hypercapnic resp failure on bipap at night. ?? Recent Newly Reduced LVEF 35-40% concerning for Stress Cardiomyopathy at [facility] with Now Recovered (LVEF 60% 02/12) Sinus Pauses s/p pacemaker placement Symptomatic Bradycardia with Transient Hypotension History of Diastolic Heart Failure/Cor Pulmonale Hyperlipidemia Hypotensive at [facility] requiring vasopressor support with levophed, epinephrine and vasopressin briefly, started on dopamine for symptomatic sinus arrest and bradycardia Likely has underlying sick sinus syndrome with sinus pauses likely due to severe hypercapnia, possible involvement of vagus nerve from large RUL mass. Echo 02/09 revealed new, reduced EF 35-40% with severe hypokinesis in mid to distal segments with relative hypokinesis at the base, most consistent with a stress cardiomyopathy (decreased EF from 02/05which LVEF 60% and no RWMA and from November at [facility]). Repeat Echo 02/12 [facility] - difficult to assess vol, but does not appear to be hypervolemic - Continue aspirin and statin ? 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 Consulted pulm,??s/p one dose acetazolamide. was previously on BiPAP at night settings 10/5/40% -??pulm following. cont ivap. nasal canula when eating-pulm signed off -??Will need outpatient sleep study and referral to sleep medicine for close monitoring - wean oxygen as needed ?? RUL Lung Mass (6cm x 6cm x 6cm)- Poorly Differentiated Squamous Cell Carcinoma Debility with poor po intake Newly Dx from Bronchoscopy 02/02, evaluated by oncology Dr. Gilmore 02/04 at [facility], PD-L1 Keytuda 1% expression, recommended outpatient PET scan when discharged - Will need close oncology follow up as outpatient?? - Palliative care consult given poor functional status at baseline, still a full code - will work with her daughter to get her to rehab. however with new finding of right upper lung??squamous cell carcinoma, and major functional decline, she will likely need a long-term??care.?? Patient's daughter was made aware. - I believe she does not have a capacity to make a decision on her own. -still working on rehab placement. ? Debility: Weakness and deconditioning given her comorbid conditions??multiple hospitalization with the new finding of lung cancer. His plan is still working on??rehab placement however this is??more likely happen??Wednesday given??long weekend. ?? Acute Kidney Injury Hypernatremia-improved Cr 0.4 on admission --> 0.9 yesterday, today down to 0.8 hypernatremia improved, NA 145 today -??encourage PO intake - Monitor electrolytes? Resolved Medical Conditions Recent Positive Influenza A (positive PCR 02/02, off isolation): ??Positive PCR for Influenza A frombronchoscopy 02/02 despite negative PCR on admission 02/01, received few doses of Tamiflu before discontinuation due to sinus bradycardia and pauses. Recent??Community Acquired Pneumonia: received 5 days CTX and 3 days Azithromycin, started on Zosyn 02/08 for 2 days given undifferentiated shock, no evidence of sepsis Hypercalcemia: Hypercalcemia likely 2/2 primary HPT per renal in November. Ca 11.9, treated with Zometa at [facility] and while at [facility] in November, PTH 118, light chains 2.38 borderline for MM, PTHrP wnl Hypovolemic Shock-??resolved Shock requiring Levophed. Likely hypovolemic, repeat echo showing borderline EF with collapsible IVC. Shock improved and vasopressor weaned off 02/12 after IVF, albumin, and midodrine. Initially on dopamine given concern for cardiogenic shock with sinus arrest and pauses, s/p pacemaker placement 02/11but remained hypotensive, transitioned dopamine to levophed.??Recent treatment with antibiotics at [facility] for PNA. was on midodrine, since discontinued Diarrhea: RESOLVED - was having diarrhea when in icu, c diff checked and was negative ?? Measurements?? Height: 168 cm (02/23/22) Weight: 124.4 kg (02/21/22) Dry Weight: 120 kg (02/10/22) Body Mass Index:??42.52 kg/m2??Critical (02/10/22) ? Vital Signs?? Temperature: 98.9 DegF (02/23/22 12:05:00) Temperature Route: Oral (02/23/22 12:05:00) Pulse Rate: 75 bpm (02/23/22 12:05:00) Respiratory Rate: 18 br/min (02/23/22 12:05:00) Vented: No (02/23/22 15:00:00) Systolic Blood Pressure:??142 mm Hg??High (02/23/22 12:05:00) Diastolic Blood Pressure: 57 mm Hg (02/23/22 12:05:00) Blood pressure sites: Arm, right (02/23/22 12:05:00) Mean Arterial Pressure: 85 mm Hg (02/23/22 12:05:00) Pulse Pressure: 85 mm Hg (02/23/22 12:05:00) Oxygen Saturation:??92 %??Low (02/23/22 12:05:00) Liters per Minute: 3 L/min (02/23/22 12:05:00) Mode of Delivery (Oxygen): Nasal cannula (02/23/22 12:05:00) Early Warning Score: 5 (02/23/22 12:06:25) ? . Physical Exam ?? General: A&OX3, not in acute distress ?Cardiac: S1, S2 normal, no murmur ?Respl: Diffuse rhonchi b/l ?Abdomen: Soft, non tender ?Neuro: A & O x 3, no focal deficits, ?Psychiatric: Cooperative, appropriate mood and affect.?Extremities: Trace LE edema [facility] Cardiology. Electrophysiology. Pulmonology. Palliative care Pending Results Add On Lab Order ordered on 02/11/2022 Add On Lab Order ordered on 02/13/2022 COVID-19 (2018 Novel Coronavirus) PCR ordered on 02/19/2022 COVID-19 (2019 Novel Coronavirus) PCR ordered on 02/23/2022 Follow-Up Appointments Added Follow Up ?Time Frame ?Comments Dhiraj LEGGETT , Blanca Patient Instructions you were admitted with sinus pauses, status post pacemaker Please follow-up with your primary care physician within the next 1 to 2 weeks. Please follow-up with your cardiology within the next 1 to 2 weeks. Home Health Face to Face ^HomeHealthFTF Results Discharge Labs BLOOD BANK Blood Type O Positive ()?? 02/11/2022 02:58 Antibody Screen Negative ()?? 02/11/2022 02:58 ?? BLOOD COUNT & DIFF WBC 7.6 k/mm3 ()?? 02/23/2022 01:21 RBC 3.11 m/mm3 (Low)?? 02/23/2022 01:21 Hgb 9.3 Gm/dL (Low)?? 02/23/2022 01:21 Hct 31.5 % (Low)?? 02/23/2022 01:21 MCV 101.3 femtoliters (High)?? 02/23/2022 01:21 MCH 29.9 pg ()?? 02/23/2022 01:21 MCHC 29.5 g/dL (Low)?? 02/23/2022 01:21 Platelet Count 322 k/mm3 ()?? 02/23/2022 01:21 RDW-SD 56.6 femtoliters (High)?? 02/23/2022 01:21 MPV 10.5 femtoliters ()?? 02/23/2022 01:21 Nucleated RBC (Automated) 0.0 #/100 WBC'S ()?? 02/23/2022 01:21 Abs. NRBC 0.0 k/mm3 ()?? 02/23/2022 01:21 Abs. Neut 7.8 k/mm3 (High)?? 02/14/2022 05:17 Abs. Lymph 0.9 k/mm3 ()?? 02/14/2022 05:17 Abs. [place] 0.7 k/mm3 ()?? 02/14/2022 05:17 Abs. Eo 0.0 k/mm3 ()?? 02/14/2022 05:17 Abs. Baso 0.0 k/mm3 ()?? 02/14/2022 05:17 Neut % 82.6 % (High)?? 02/14/2022 05:17 Lymph % 9.1 % (Low)?? 02/14/2022 05:17 [place] % 7.2 % ()?? 02/14/2022 05:17 Eos % 0.3 % ()?? 02/14/2022 05:17 Baso % 0.1 % ()?? 02/14/2022 05:17 Hemoglobin (POC) POC Cartridge 11.6 Gm/dL (Low)?? 02/12/2022 09:42 Hematocrit (POC) POC Cartridge 34 % (Low)?? 02/12/2022 09:42 Imm Gran 0.7 % ()?? 02/14/2022 05:17 Abs. Imm Gran 0.1 k/mm3 ()?? 02/14/2022 05:17 ?? BLOOD GAS pH (POC) POC Cartridge 7.31 (Low)?? 02/12/2022 09:42 pCO2 (POC) POC Cartridge 51.0 mm Hg (High)?? 02/12/2022 09:42 pO2 (POC) POC Cartridge 85 mm Hg ()?? 02/12/2022 09:42 Estimated Bicarbonate (POC) POC Cart 25.7 mmol/L ()?? 02/12/2022 09:42 % O2 Sat Arterial (POC) POC Cartridge 95 % (Low)?? 02/12/2022 09:42 Base Excess (POC) POC Cartridge NEGATIVE 1 ()?? 02/12/2022 09:42 pH 7.32 (Low)?? 02/16/2022 14:05 pCO2 73 mm Hg (Critical)?? 02/16/2022 14:05 pO2 161 mm Hg (High)?? 02/16/2022 14:05 Bicarbonate, Estimated 37 mmol/L (High)?? 02/16/2022 14:05 Specimen Type - Blood Gas ARTERIAL ()?? 02/16/2022 14:05 Percent O2 (FIO2) 70% ()?? 02/15/2022 11:10 ?? CARDIAC Nt-Probnp 4155 pg/mL (High)?? 02/10/2022 15:27 High Sensitivity Troponin (HSTnT) 117 ng/L (Critical)?? 02/10/2022 15:27 ?? CHEM GENERAL Sodium 142 mmol/L ()?? 02/23/2022 01:21 Potassium 3.4 mmol/L (Low)?? 02/23/2022 01:21 Chloride 98 mmol/L ()?? 02/23/2022 01:21 Bicarbonate Level 39 mmol/L (High)?? 02/23/2022 01:21 Anion Gap 5 ()?? 02/23/2022 01:21 Sodium (POC) POC Cartridge 142 mmol/L ()?? 02/12/2022 09:42 Potassium (POC) POC Cartridge 3.1 mmol/L (Low)?? 02/12/2022 09:42 Glucose Level 82 mg/dL ()?? 02/23/2022 01:21 Glucose (POC) POC Cartridge 88 ()?? 02/12/2022 09:42 BUN 9 mg/dL ()?? 02/23/2022 01:21 Creatinine-Blood 1.0 mg/dL ()?? 02/23/2022 01:21 Estimated GFR Creatinine 61 ML/MIN/1.73 M2 ()?? 02/23/2022 01:21 Calcium 11.0 mg/dL (High)?? 02/23/2022 01:21 Ionized Calcium (POC) POC Cartridge 1.42 mmol/L (High)?? 02/12/2022 09:42 Magnesium 2.0 mg/dL ()?? 02/23/2022 01:21 Protein, Total 6.2 Gm/dL ()?? 02/23/2022 01:21 Albumin 2.8 Gm/dL (Low)?? 02/23/2022 01:21 AG Ratio 0.8 ()?? 02/23/2022 01:21 Alkaline Phosphatase 67 units/L ()?? 02/23/2022 01:21 AST (SGOT) 15 units/L ()?? 02/23/2022 01:21 ALT (SGPT) 6 units/L ()?? 02/23/2022 01:21 Bilirubin, Total 0.8 mg/dL ()?? 02/23/2022 01:21 Bilirubin, Direct 0.5 mg/dL (High)?? 02/11/2022 03:50 Bilirubin, Indirect 1.4 mg/dL (High)?? 02/11/2022 03:50 Lactate 0.8 mmol/L ()?? 02/12/2022 02:36 ? COAG INR 1.1 ()?? 02/10/2022 15:27 Protime (PT) 11.9 seconds (High)?? 02/10/2022 15:27 APTT 30.3 seconds ()?? 02/10/2022 15:27 ? ENDOCRINE/TUMOR MARKER Cortisol Level 12.6 ??g/dL ()?? 02/11/2022 03:50 ? SEROLOGY INF DISEASE C.difficile Toxin Negative. C.Difficile bacterial antigen and toxin not detected. A (N)?? 02/12/2022 16:30 ? VIROLOGY COVID-19 by RT-PCR NEGATIVE ()?? 02/22/2022 12:05 COVID-19 PCR Specimen Source NASAL ()?? 02/16/2022 06:00 COVID-19 PCR Result NEGATIVE ()?? 02/16/2022 06:00 ? 60??minutes spent on discharge Nataly Mckeon RN: PERFORM, SIGN, VERIFY Event Display: Case Management Discharge Plan Authored Date: Patient: ОЛЕГ PATINO Age: 76 years Sex: Female : 1945 Associated Diagnoses: None Author: Nataly Mckeon RN Discharge Plan Case Management Discharge Plan : Case Management Discharge Plan Data 02/23/2022 14:54 EST Discharge Level of Care at Discharge FDC facility Discharge Nursing Homes/Rehab Facilities [facility] Discharge Transportation Arranged [facility] [address] [facility] [phone] Discharge Arranged Transport Date/Time 02/23/2022 17:00 Mode of Transportation Arranged Ambulance Name of Agency #1 [facility] Phone: [phone] Service Categories #1 Occupational Therapy, Oxygen Therapy, Physical Therapy, Fdc Service Comments #1 [facility] Kyle Arndt: PERFORM Event Display: Patient Education/Instruction Authored Date: Inpatient Adult Discharge Instructions [address] [address] Name: ОЛЕГ PATINO : 1945 Visit: 02/10/2022 12:23:00 Current Date: 02/23/2022 15:48 Account: [id number] Inpatient Adult Discharge Instructions We would like to thank you for allowing us to assist you with your healthcare needs. The following includes patient education materials and information regarding your injury/illness. Our entire staff strives to provide an excellent experience for our patients and their families. PLEASE ENSURE YOU FOLLOW-UP PER THE INSTRUCTIONS BELOW! ?? YOUR OPINION IS IMPORTANT TO US! Please complete the survey you may receive by mail or email. Your feedback will be used to make improvements to the healthcare experiences of our patients and their families. Surveys are administered by [employer] ?? If further treatment with your primary care physician or another doctor is recommended, it is important for you to keep the appointment. Call your primary care physician or return to the Emergency Department immediately if your condition worsens, fails to improve, or new symptoms develop. If you need to find a doctor, you can call [facility] [employer]! for a referral at [phone] or toll free at [phone] ([phone]) or log in to [email or web address].. ?? You can view and manage your care through the patient portal or by using a health care grady of your choosing. [employer] is a website that allows you to securely view your medical information including your hospital discharge summary, office visit summaries, medications and follow-up visits. You can also request appointments, renew medications, and request access to your medical information using a health care grady of your choosing, or just ask a question. You can enroll at [email or web address] or register during your next office visit. You have been discharged from [facility], Patient Care Unit: S2. If you have any questions regarding these instructions after you leave, please call us and we will be happy to assist you. [facility] Your Care Team Attending Physician Aby Sevilla MD Consulting Providers Sandra Nevarez MD, Ulices Lee; Tom ANN, Jasvir Gauthier; Aanmika ANN, Ted Tilley; Silvina Abdi DO, DO, Gregory Discharging Providers Aby Sevilla MD Reason for Admission SINUS ARREST Your Diagnosis Sinus arrest Tests Performed Below is a partial list of the tests performed during your hospitalization. You may have had other tests and procedures not included in this list. Please discuss all test results with your provider. ABG ABG POC CARTRIDGE Albumin Level Alk Phos ALT AST BASE EXCESS POC CARTRIDGE Basic Metabolic Panel Bilirubin Total + Direct Blood Gas Arterial BUN C. DIFFICILE TOXIN CALCIUM IONIZED POC CART Calcium Level CBC CBC w/ Differential Comprehensive Metabolic Panel CORTISOL COVID-19 (NOVEL CORONAVIRUS), PCR Creatinine Electrolytes Glucose Level GLUCOSE POC CARTRIDGE HEMATOCRIT POC CARTRIDGE HEMOGLOBIN POC CARTRIDGE Lactate Level Magnesium Level Mg Level NT ProBNP POTASSIUM POC CARTRIDGE PT (INR) PTT SODIUM POC CARTRIDGE Total Protein Troponin T, High Sensitivity Type and Screen CXR Portable Portable Chest XR Chest 2 Views Frontal and Lat Primary Care Provider Blanca Hearn NP Advance Directive Health Care Proxy on File Yes - Health Care Proxy No qualifying data available. Discharge Vitals Temperature: 98.9 DegF Height: 168 cm Pulse Rate: 75 bpm Weight: 124.4 kg Respiratory Rate: 18 br/min Body Mass Index:??42.52 kg/m2??Critical Systolic Blood Pressure:??142 mm Hg??High Body surface area: 2.37 Diastolic Blood Pressure: 57 mm Hg ?? Oxygen Saturation:??92 %??Low ?? Studies Pending All tests and labs ordered during this hospital stay have been completed unless listed below. Pleasediscuss all pending results with your provider listed above in these instructions. ?? Add On Lab Order COVID-19 (2019 Novel Coronavirus) PCR What to do next Instructions From Your Doctor you were admitted with sinus pauses, status post pacemaker Please follow-up with your primary care physician within the next 1 to 2 weeks. Please follow-up with your cardiology within the next 1 to 2 weeks. Discharge Orders Scheduled Follow-Up Appointments Wednesday 9:30 AM EST ?? With: Syed Reyez DO Where: [facility] [address] [place] [address]- You Need to Schedule the Following Appointments Follow Up with??Blanca Hearn NP When?? Where: [address] [place] [id number]- Discharge Medications ОЛЕГ PATINO :1945 Visit Date:02/10/2022 Medications: Please continue your medications until treatment is completed or stopped by your provider. Medications not listed below should be discontinued. Discuss any questions related to medications with your provider. What How Much When Instructions Next Dose Unchanged Acetaminophen (Tylenol 325 mg oral tablet) 2 tab(s) Oral Every 4 hours as needed for Pain , Mild As needed Unchanged Albuterol (Albuterol 0.083% inhalation moriah) 2.5 Milligram BAND Nebulizer Every 2 hours as needed for Wheezing/Shortness of Breath As needed Unchanged arformoterol (arformoterol 15 mcg/ 2 mL inhalation solution) 2 Milliliter BAND Nebulizer Twice a day 02/23/22 9pm Unchanged Ascorbic Acid (ascorbic acid 500 mg oral tablet) 1 tab(s) Oral Daily 02/24/21 9am Unchanged Aspirin (aspirin 81 mg oral delayed release tablet) 81 Milligram Oral Daily 02/24/21 9am Unchanged Atorvastatin (atorvastatin 40 mg oral tablet) 1 tab(s) Oral Daily at Bedtime 02/23/22 9pm Unchanged Budesonide (Pulmicort Respules 0.5 mg/ 2 mL inhalation suspension) 2 Milliliter Nebulized inhalation Twice a day 02/23/22 9pm Unchanged Chondroitin-Glucosamine (chondroitin-glucosamine 400 mg-500 mg oral tablet) per schedule Unchanged Docusate (Colace sodium 100 mg oral capsule) 1 capsule Oral Twice a day 02/23/22 9pm Unchanged Durable Medical Equipment (Compression Stockings) See instructions surgical, calf length 20-30 mm Hg Dx: venous insufficiency OK to dispense open-toed stockings at patient's request ?? DME Unchanged Ergocalciferol (ergocalciferol 83867 iu oral capsule) Oral Every week weekly Unchanged Melatonin (Melatonin 3 mg oral tablet) 1 tab(s) Oral Daily at Bedtime as needed for for insomnia As needed Unchanged Multivitamin With Minerals (Multivit Therapeutic/ Minerals Tablet) 1 tab(s) Oral Daily 02/24/21 9am Unchanged Nicotine (nicotine 14 mg/ 24 hr transdermal film, extended release) 1 patch(es) Topically Daily 02/24/21 9am Unchanged Potassium Phosphate-Sodium Phosphate (Phos-NaK Oral Powder) 1 pack/packet Oral Twice a day Duration: 3 Days 02/23/22 9pm Unchanged Thiamine (thiamine 100 mg oral tablet) 1 tab(s) Oral Daily 02/24/21 9am Unchanged torsemide (torsemide 20 mg oral tablet) 2 tab(s) Oral Daily 02/24/21 9am Unchanged Zinc Acetate (zinc (as acetate) 50 mg oral capsule) 1 capsule Oral Daily on an empty stomach 1 hour before or 2 hours after eating ?? 02/24/21 9am ?? What How Much When Comments Stop Taking Lactulose (lactulose 10 gm/ 15 ml oral syrup) 30 Milliliter Oral 3 times a day Stop Taking Senna (Senna 8.6 mg oral tablet) 2 tab(s) Oral Daily Stop Taking Sodium Chloride Nasal (Salinex Marshall) 1 spray(s) Nares, Both 4 times a day as needed for Other dryness ?? Test Results Below is a partial list of the most recent Laboratory test results done prior to this discharge. You may have had other tests and procedures not included in this list. Please discuss all test results with your provider. ABG (02/16/2022) ???pH - 7.32???pCO2 - 73 mm Hg???pO2 - 161 mm Hg???Bicarbonate, Estimated - 37 mmol/L???Specimen Type - Blood Gas - ARTERIAL ABG POC CARTRIDGE (02/12/2022) ???pH (POC) POC Cartridge - 7.31???pCO2 (POC) POC Cartridge - 51.0 mm Hg???pO2 (POC) POC Cartridge -85 mm Hg???Estimated Bicarbonate (POC) POC Cart - 25.7 mmol/L???% O2 Sat Arterial (POC) POC Cartridge - 95 %???Specimen Type - Blood Gas - ARTERIAL Albumin Level (02/11/2022) ???Albumin - 3.0 Gm/dL Alk Phos (02/11/2022) ???Alkaline Phosphatase - 55 units/L ALT (02/11/2022) ???ALT (SGPT) - 21 units/L AST (02/11/2022) ???AST (SGOT) - 16 units/L BASE EXCESS POC CARTRIDGE (02/12/2022) ???Base Excess (POC) POC Cartridge - NEGATIVE 1 Basic Metabolic Panel (02/18/2022) ???Sodium - 145 mmol/L???Potassium - 3.8 mmol/L???Chloride - 103 mmol/L???Bicarbonate Level - 39 mmol/L???Anion Gap - 3???Glucose Level - 95 mg/dL???BUN - 7 mg/dL???Creatinine-Blood - 0.8 mg/dL???Estimated GFR Creatinine - 77 ML/MIN/1.73 M2???Calcium - 11.6 mg/dL Bilirubin Total + Direct (02/11/2022) ???Bilirubin, Total - 1.9 mg/dL???Bilirubin, Direct - 0.5 mg/dL???Bilirubin, Indirect - 1.4 mg/dL Blood Gas Arterial (02/14/2022) ???pH - 7.24???pCO2 - 73 mm Hg???pO2 - 79 mm Hg???Bicarbonate, Estimated - 30 mmol/L???Percent O2 (FIO2) - 40 BUN (02/16/2022) ???BUN - 8 mg/dL C. DIFFICILE TOXIN (02/12/2022) ???C.difficile Toxin - Negative. C.Difficile bacterial antigen and toxin not detected. A CALCIUM IONIZED POC CART (02/12/2022) ???Ionized Calcium (POC) POC Cartridge - 1.42 mmol/L Calcium Level (02/15/2022) ???Calcium - 10.3 mg/dL CBC (02/23/2022) ???WBC - 7.6 k/mm3???RBC - 3.11 m/mm3???Hgb - 9.3 Gm/dL???Hct - 31.5 %???MCV - 101.3 femtoliters???MCH - 29.9 pg???MCHC - 29.5 g/dL???Platelet Count - 322 k/mm3???RDW-SD - 56.6 femtoliters???MPV - 10.5femtoliters???Nucleated RBC (Automated) - 0.0 #/100 WBC'S???Abs. NRBC - 0.0 k/mm3 CBC w/ Differential (02/14/2022) ???WBC - 9.5 k/mm3???RBC - 3.47 m/mm3???Hgb - 9.9 Gm/dL???Hct - 36.1 %???MCV - 104.0 femtoliters???MCH - 28.5 pg???MCHC - 27.4 g/dL???Platelet Count - 242 k/mm3???RDW-SD - 62.0 femtoliters???MPV - 10.5femtoliters???Nucleated RBC (Automated) - 0.0 #/100 WBC'S???Abs. NRBC - 0.0 k/mm3???Abs. Neut - 7.8 k /mm3???Abs. Lymph - 0.9 k/mm3???Abs. [place] - 0.7 k/mm3???Abs. Eo - 0.0 k/mm3???Abs. Baso - 0.0 k/mm3???Neut % - 82.6 %???Lymph % - 9.1 %???[place] % - 7.2 %???Eos % - 0.3 %???Baso % - 0.1 %???Imm Gran - 0.7 %???Abs. Imm Gran - 0.1 k/mm3 Comprehensive Metabolic Panel (02/23/2022) ???Sodium - 142 mmol/L???Potassium - 3.4 mmol/L???Chloride - 98 mmol/L???Bicarbonate Level - 39 mmol/L???Anion Gap - 5???Glucose Level - 82 mg/dL???BUN - 9 mg/dL???Creatinine-Blood - 1.0 mg/dL???Estimated GFR Creatinine - 61 ML/MIN/1.73 M2???Calcium - 11.0 mg/dL???Protein, Total - 6.2 Gm/dL???Albumin - 2.8 Gm/dL???AG Ratio - 0.8???Alkaline Phosphatase - 67 units/L???AST (SGOT) - 15 units/L???ALT (SGPT) - 6 units/L???Bilirubin, Total - 0.8 mg/dL CORTISOL (02/11/2022) ???Cortisol Level - 12.6 ??g/dL COVID-19 (NOVEL CORONAVIRUS), PCR (02/22/2022) ???COVID-19 by RT-PCR - NEGATIVE Creatinine (02/16/2022) ???Creatinine-Blood - 0.8 mg/dL???Estimated GFR Creatinine - 81 ML/MIN/1.73 M2 Electrolytes (02/16/2022) ???Sodium - 145 mmol/L???Potassium - 3.3 mmol/L???Chloride - 107 mmol/L???Bicarbonate Level - 36 mmol/L???Anion Gap - 2 Glucose Level (02/15/2022) ???Glucose Level - 71 mg/dL GLUCOSE POC CARTRIDGE (02/12/2022) ???Glucose (POC) POC Cartridge - 88 HEMATOCRIT POC CARTRIDGE (02/12/2022) ???Hematocrit (POC) POC Cartridge - 34 % HEMOGLOBIN POC CARTRIDGE (02/12/2022) ???Hemoglobin (POC) POC Cartridge - 11.6 Gm/dL Lactate Level (02/12/2022) ???Lactate - 0.8 mmol/L Magnesium Level (02/23/2022) ???Magnesium - 2.0 mg/dL Mg Level (02/14/2022) ???Magnesium - 2.3 mg/dL NT ProBNP (02/10/2022) ???Nt-Probnp - 4155 pg/mL POTASSIUM POC CARTRIDGE (02/12/2022) ???Potassium (POC) POC Cartridge - 3.1 mmol/L PT (INR) (02/10/2022) ???INR - 1.1???Protime (PT) - 11.9 seconds PTT (02/10/2022) ???APTT - 30.3 seconds SODIUM POC CARTRIDGE (02/12/2022) ???Sodium (POC) POC Cartridge - 142 mmol/L Total Protein (02/11/2022) ???Protein, Total - 5.7 Gm/dL Troponin T, High Sensitivity (02/10/2022) ???High Sensitivity Troponin (HSTnT) - 117 ng/L Type and Screen (02/11/2022) ???Blood Type - O Positive???Antibody Screen - Negative Allergies (NKA means No Known Allergies) NKA Problems Active Problems??(7) Chronic diastolic CHF (congestive heart failure)?? COPD without exacerbation?? HLD (hyperlipidemia)?? Morbid obesity?? Severe obesity?? Stage 3a chronic kidney disease (CKD)?? Uterovaginal Prolapse, Complete?? Education Materials Below is the list of Educational Leaflet Providered with your Discharge Instructions. Valuables and Belongings I fully understand and agree that [facility] accepts no responsibility for all my personal property including clothing, toilet articles, radios, jewelry, dentures, hearing aids, rings, money, or any other property that is in my possession or is brought to me after admission. I understand certain valuables may be placed in a hospital safe for a short period of time. I understand that the hospital is not liable for loss or damage due to accident, fire, or other natural occurrence while said property is in the safe. I accept full responsibility for any personal property that I keep with me, and will not hold the hospital responsible in case of loss or disappearance. I acknowledge that i have been encouraged to send valuables and belongings home. ? Other Discharge Information ?? Wound Assessment?? Wound Assessment?? Wound Location I: Chest, left anterior Wound Type I: Other: moisture Wound I, Length: 1 cm Wound I, Width: 1 cm Wound I, Depth: 1 cm Wound Location II: Perineal Surgical Incision Type I: Surgical Surgical Incision Assessment I: Clean, dry, intact ? Case Management Discharge Plan?? Discharge Plan?? Discharge Agency Information?? Discharge Level of Care at Discharge: FDC facility Name of Agency #1: [facility] Phone: [phone] Discharge Rx Program: Discharge Prescription Program Service Categories #1: Occupational Therapy, Oxygen Therapy, Physical Therapy, Fdc Discharge Rx Program: Discharge Prescription Program Service Comments #1: [facility] Discharge Transportation Arranged: [facility] [address] [facility] [address] [phone] ?? Mode of Transportation Arranged: Ambulance ?? Discharge Arranged Transport Date/Time: 02/23/22 17:00:00 ?? Discharge Nursing Homes/Rehab Facilities: [facility] ?? Discharge [facility]NA/Hospice/Home Care: [facility] ? Pulmonary Rehab Status?? Pulmonary Rehab Discharge Status?? CPAP/BiPAP Mask Type: Full CPAP/BiPAP Mask Size: Large Respiratory Rate: 18 br/min ? Common Emergency Awareness Tips IS IT A STROKE? Act FAST and Check for these signs: FACE Does the face look uneven? ARM Does one arm drift down? SPEECH Does their speech sound strange? TIME Call at any sign of stroke ?? Heart Attack Signs Chest discomfort: Most heart attacks involve discomfort in the center of the chest and lasts more than a few minutes, or goes away and comes back. It can feel like uncomfortable pressure, squeezing, fullness or pain. Discomfort in upper body: Symptoms can include pain or discomfort in one or both arms, back, neck, jaw or stomach. Shortness of breath: With or without discomfort. Other signs: Breaking out in a cold sweat, nausea, or lightheaded. Remember, MINUTES DO MATTER. If you experience any of these heart attack warning signs, call to get immediate medical attention! ?? Smoking can increase your chances of developing chronic health problems and can cause harmful effects to other family members in your house. If you smoke, you are strongly encouraged to quit. Please call [facility] [employer] at [phone] or [phone] [phone] ([phone]) or log in to [email or web address] for referrals to smoking cessation programs. ?? The National Suicide Prevention Hotline is available 14/09 if you or someone you know needs to find areason to keep living. By calling 6-647-175-[employer] (0454) you'll be connected to a skilled, trained counselor at a crisis center in your area. INPATIENT DISCHARGE INSTRUCTIONS SIGNATURE ОЛЕГ CARRILLO Location:[facility] Registration Date and Time:02/10/2022 12:23 EST Primary Care Physician: Blanca Hearn NP, I ОЛЕГ PATINO, have received the above patient education materials/instructions and have verbalized understanding. If ambulance or transport services are being used I further acknowledge being givena choice of service. ?? If you need to contact me, please call me at this number: . Patient/Maxillofacial Prosthetics Dentist Name: Patient/Maxillofacial Prosthetics Dentist Signature: Relationship to Patient: Witness Name/Signature: Date: Event Display: Hemodynamic Procedure Report Authored Date: Event Display: Cardiac Rhythm Strips Authored Date: BHSPowerscribe , JODY S: TRANSCRIBE Goodman ANN, Lenny H: VERIFY Event Display: Result: Authored Date: Chest 2 Views Frontal and Lat Reason: Postop; Clinical Question(s): Line Placement; Pneumothorax; Special Instructions: Patient may go unmonitored. Please keep film at back desk COMPARISON: 11/29/2021 FINDINGS: LINES AND TUBES: Interval placement of a left IJ line, tip in region of junction with SVC. There also has been interval placement of a left subclavian dual-lead pacer/AICD. The leads appear to be in satisfactory position. LUNGS AND PLEURA: Large right upper lobe mass again noted. It is difficult to measure as it directly abuts the apical pleura and cannot distinguish between mass border and any adjacent pleural reaction/thickening. Suspect however that it has increased in size since the November exam. There is now some patchy airspace disease at the right base. Left lung clear other than for some platelike atelectasis in the perihilar region. Tiny amounts of pleural fluid blunting the posterior sulci. No pneumothorax. HEART, MEDIASTINUM AND PARDEEP: Stable heart size. Stable mediastinal and hilar contours, once again the right upper mediastinal border indistinct due to the adjacent mass. BONES AND SOFT TISSUES: No acute abnormality. IMPRESSION: 1. Interval placement of dual lead left subclavian pacer/AICD and a left IJ line, positions satisfactory as described above. No pneumothorax. 2. Known right upper lobe mass which likely has increased in size since previous study 11/29/2021, the superior border of the mass no longer visible, suggesting extension to or involvement of the adjacent pleura. 3. Patchy atelectasis and/or infiltrate at the right lung base. WSN: [id number] Ordering Physician: Nicola Bhagat Dictated By: Lenny Moya MD Dictated Date/Time: 02/12/22 10:10 a Reviewed By: Lenny Moya MD Signed By: Lenny Moya MD Signed Date/Time: 02/12/22 10:10 am Transcribed By: CSDonnell Transcribed Date/Time: 02/12/22 10:01 Laurie Ruiz RN: PERFORM, SIGN, VERIFY Event Display: Case Management Discharge Plan Authored Date: Patient: ОЛЕГ PATINO Age: 76 years Sex: Female : 1945 Associated Diagnoses: None Author: Laurie Godinez RN Discharge Plan Case Management Discharge Plan : Case Management Discharge Plan Data 02/11/2022 9:22 EST Discharge Level of Care at Discharge Homehealth/VNA Discharge VNA/Hospice/Home Care [facility] Service Categories #1 Occupational Therapy, Physical Therapy, Fdc Service Comments #1 [facility] will call you to schedule time for visit and resume home services Event Display: Outside Images Echo Images acquired from non-[facility] facility Demographics Patient Name CAREY DENNEY Gender Female [employer] Facility BSA 2.31 m2 Date of 1945 Age 76 year(s) Accession Number [id number] Procedure Procedure Type Outside Images:Outside Images Echo Event Display: Outside Images Echo Images acquired from non-[facility] Demographics Patient Name CAREY DENNEY Gender Female [employer] Facility BSA 2.31 m2 Date of 1945 Age 76 year(s) Accession Number [id number] Procedure Procedure Type Outside Images:Outside Images Echo Event Display: Outside Images Echo Admission evaluation note Sarah Wolf DO: PERFORM, MODIFY, MODIFY Event Display: Admission Note Authored Date: [id number] Patient: ??ОЛЕГ PATINO ? Age:??76 Years?Sex:??Female?:??1945?? Chief Complaint/Reason for Consultation Transfer from [facility] for sinus arrest History of Present Illness 76 y.o. female with PMHx of??acute hypoxic respiratory failure on 4L O2 at home 2/2 COPD, AYDIN not on NIV, HFpEF (LVED 55-65% Echo 11/23/21), chronic diastolic heart failure/cor pulmonale, HLD, HTN, morbid obesity, CKD stage III,??who presented as a transfer from [facility] for sinus arrest and shock. ?? The patient had a recent hospitalization at [facility] 11/20-12/02 for acute on chronic hypoxic and hypercapnic respiratory failure secondary to COPD exacerbation with hospital course complicated by frequent sinus pauses (3 to 6 seconds) and bradycardia for which she was evaluated??by EP with no plan for pacemaker??at that time as pauses thought to be in setting of electrolyte abnormalities (hypercalcemia Ca 11.9, PTH 118) and BRITT for which renal was consulted, she received Zometa with improvement.??Patient was also found to have a new lung mass which at the time she refused inpatient lung??biopsy.??She was discharged on 12/02 to rehab. Patient was admitted to [facility] 02/01 with increased lethargy and generalized weakness. She was found to have worsening mental status nearing unresponsiveness??in the ED??with ABG??7.24 pCO2 100 and Po2 73. She was placed on BiPAP??for??hypercapnic and hypoxemic respiratory failure.??CXR with concerning RUL mass patient was started on CTX and azithromycin for presumed pn eumonia, steroids and nebulized bronchodilators for??concurrent COPD exacerbation and??diuresed for question of heart failure exacerbation. Patient was admitted to the ICU at [facility] for worsening mentation at the point of obtundation and was found to have progressive acidosis and was intubated 02/02.??She was extubated the following day after improvement in mental status and acidosis. Prior to extubation,??patient agreed to bronchoscopy of RUL mass??on 02/02 which revealed poorly differentiated squamous cell carcinoma for which Dr. Gilmore from oncology was consulted. Respiratory panel PCR from bronch oscopy returned positive for influenza A despite negative PCR on admission, she was started on Tamiflu. However, patient developed significant bradycardia with intermittent junctional escape and symptomatic during this episodes including somnolence and sensation of feeling off. Tamiflu was??discontinued after one dose but patient continued to have long sinus pauses and cardiology was consulted and??started dopamine drip.??Her hypercalcemia was treated with Zometa, epinephrine was also added 02/07 but discontinued 02/09. Given hypotension, patient briefly started on hydrocortisone, zosyn, levophedand vasopressin but was??discontinued 02/09 and 02/10 respectively. Infectious workup including blood cultures and lyme antibody negative.??Echocardiogram 02/09 revealed new, reduced EF 35-40% with severe hypokinesis in mid to distal segments with relative hypokinesis at the base, most consistent witha stress cardiomyopathy. On the morning of 02/10, sinus arrhythmia progressed to unstable??sinus arrest??lasting approximately 10 seconds with no escape rhythm for which the patient was unresponsive and hypotensive and was given atropine. Cardiology recommended transfer to [facility], at this time patient was on BiPAP 11/10, 70% FiO2, dopamine infusion at 15mcg/kg/min with external pacer pads on.? On arrival, patient hemodynamically stable, normotensive on dopamine HR 90s satting 94% on 70% [id number] CPAP mask on. She has no complaints at this time. ? Review of Systems Unable to obtain due to patient's clinical condition. Objective Vital Signs?? Temperature: 98.9 DegF (02/10/22 12:00:00) Temperature Route: Axillary (02/10/22 12:00:00) Heart Rate Monitored:??92 bpm??High (02/10/22 12:33:00) Vented: No (02/10/22 12:00:00) Oxygen Saturation: 94 % (02/10/22 12:33:00) FiO2: 60 % (02/10/22 12:33:00) ? Ventilator Settings?? FiO2: 60 % (12:33) ? Intake/Output? No Data Available ? Physical Exam General Appearance: The patient is a 76 y.o. female, chronically ill appearing. HEET: Atraumatic, normocephalic. EOMI. CHRIS. No scleral icterus. Cardiovascular: RRR S1 and S2 heard. No murmurs, gallops, or rubs appreciated. Respiratory: ??Breath sounds diminished. CPAP mask on. GI: Soft. Morbidly obese. Nontender and nondistended. Normal bowel sounds present throughout abdomen.? MS:?Trace bilateral lower extremity edema. No erythema in the lower extremities. Skin:??No rashes. Warm and dry. Skin intact. Neuro: ??No slurred speech. Moving all extremities spontaneously and independently. No focal neurologic deficits. Psych: Alert and oriented x3. Speaking in one word sentences. Assessment/Plan 76 y.o. female with PMHx of??acute hypoxic respiratory failure on 4L O2 at home 2/2 COPD, AYDIN not onNIV, HFpEF (LVED 55-65% Echo 11/23/21), chronic diastolic heart failure/cor pulmonale, HLD, HTN, morbid obesity, CKD stage III,??who presented as a transfer from [facility] for sinus arrest and shock. ?? NEUROLOGY Metabolic Encephalopathy 2/2 Hypoxia and Hypercarbia Plan: - Continue NPPV as below ?? CARDIOVASCULAR Newly Reduced LVEF 35-40% concerning for Stress Cardiomyopathy Sinus Pauses and Arrest Symptomatic??Bradycardia??with Transient Hypotension History of Diastolic Heart Failure/Cor Pulmonale Hyperlipidemia Hypotensive at [facility] requiring vasopressor support with levophed, epinephrine and vasopressin briefly, started on dopamine for symptomatic sinus arrest and bradycardia EKG at [facility] showed NSR, inferolateral T wave inversions that were dynamic on repeat EKGs, telemetry demonstrated SR with occasional junctional escape beats when there are sinus pauses, retrograde P waves suggestive of sinus activity, no advanced degree heart block Likely has underlying sick sinus syndrome with sinus pauses likely due to severe hypercapnia, possible involvement of vagus nerve from large RUL mass, electrolyte abnormalities however, given now hemodynamic instability requiring pressor requirement will need pacemaker Echo 02/09 revealed new, reduced EF 35-40% with severe hypokinesis in mid to distal segments with relative hypokinesis at the base, most consistent with a stress cardiomyopathy (decreased EF from 02/05 which LVEF 60% and no RWMA and from November at [facility]) Currently on dopamine 15mcg, when attempted to wean dopamine patient became hypotensive SBP 80s Plan: - Continue dopamine, titrate for HR >60 - Hold diuretics - Continue aspirin and statin - EP consulted- will plan for pacemaker tomorrow, NPO after midnight ?? RESPIRATORY Acute on Chronic Hypoxic and Hypercapnic Respiratory Failure (7.37/74.4/123/43)- baseline pCO2 appears to be 50-70 Recent Positive Influenza AYDIN/OHS- untreated Recent COPD Exacerbation RUL Lung Mass- Poorly Differentiated Squamous Cell Carcinoma Positive PCR for Influenza A from bronchoscopy 02/02 despite negative PCR on admission 02/01, received few doses of Tamiflu before discontinuation due to sinus bradycardia and pauses Plan: - No indication for precautions (completed 7 day isolation 02/08) - NPPV holiday for now, can consider high flow during the day, needs to have non invasive positive pressure on at bedtime - Will likely need pulm consult after transfer out of unit to help with managing respiratory failure ?? ENDOCRINE No active issues ?? ID Recent Positive Influenza A (positive PCR 02/02, off isolation) Received 1 dose of Oseltamivir 02/05 before discontinuation due to concern for bradycardia Concern for PNA at [facility], received 5 days CTX and 3 days Azithromycin, started on Zosyn 02/08 for 2 days given undifferentiated shock, no evidence of sepsis Blood cultures at [facility] unremarkable, afebrile, no leukocytosis Plan: - Continue to monitor, if develops a fever consider mi-culturing ?? RENAL Acute on Chronic Respiratory Acidosis with Metabolic Alkalosis Hypercalcemia Hypercalcemia??likely 2/2??primary HPT per renal in November Ca 11.9, treated with Zometa at [facility] and while at [facility] in November, PTH 118, light chains 2.38 borderline for MM, PTHrP wnl - Monitor electrolytes including calcium daily - Depending on electrolyte derangements, consider consulting renal versus endocrine - Monitor UOP with marcum catheter ?? GI No active issues - NPO while on NPPV ?? HEMATOLOGY RUL Lung Mass (6cm x 6cm x 6cm)- Poorly Differentiated Squamous Cell Carcinoma Newly Dx from Bronchoscopy 02/02, evaluated by oncology Dr. Gilmore 02/04 at [facility], PD-L1 Keytuda 1%expression, recommended outpatient PET scan when discharged Plan: - Will need close oncology follow up as outpatient ?? SKIN/MSK No active issues ? Quality Measures Code Status: Full Diet: Cardiac DVT prophylaxis: SQH 7,500 TID GI prophylaxis: NA HCP/Family Update: Eligio HCP/daughter ?? Patient seen and discussed with Dr. Cruz Wolf, DO Internal Medicine PGY3 Pager?? [phone] Histories Allergies Allergies ?(Active and Proposed Allergies Only) NKA? (Severity: Unknown severity, Onset: Unknown) ? Past Medical History/Problem List Active Problems??(7) Chronic diastolic CHF (congestive heart failure) COPD without exacerbation HLD (hyperlipidemia) Morbid obesity Severe obesity Stage 3a chronic kidney disease (CKD) Uterovaginal Prolapse, Complete ? Past Surgical History Cholecystectomy Hernia repaid Mastoid surgery Orthopedic surgery Vaginal??hysterectomy ?? Social History Tobacco Details:??Use: 4 or less cigarettes(less than 1/4 pack)/day in last 30 days. ? Family History No family history recorded. ? Medications Home Medications Acetaminophen (Tylenol 325 mg oral tablet)?975?Milligram?3?tablet?By Mouth?Every 6 hours?as needed?Pain , Mild Albuterol (Albuterol 0.083% inhalation moriah)?2.5?Milligram?BAND Nebulizer?Every 2 hours?as needed?Wheezing/Shortness of Breath arformoterol (arformoterol 15 mcg/2 mL inhalation solution)?2?Milliliter?15?Microgram?BAND Nebulizer?2 times a day Aspirin (aspirin 81 mg oral delayed release tablet)?81?Milligram?By Mouth?Daily Atorvastatin (atorvastatin 40 mg oral tablet)?1?tab(s)?40?Milligram?By Mouth?Daily at bedtime Budesonide (Pulmicort Respules 0.5 mg/2 mL inhalation suspension)?0.5?Milligram?Neb?2 times a day Docusate (Colace sodium 100 mg oral capsule)?100?Milligram?1?capsule?By Mouth?2 times a day Durable Medical Equipment (Compression Stockings)?See Instructions?surgical, calf length 20-30 mm HgDx: venous insufficiencyOK to dispense open-toed stockings at patient's request Ergocalciferol (ergocalciferol 40767 iu oral capsule)?By Mouth?Every week Lactulose (lactulose 10 gm/15 ml oral syrup)?30?Milliliter?20?gram?By Mouth?3 times a day Multivitamin With Minerals (Multivit Therapeutic/Minerals Tablet)?1?tab(s)?By Mouth?Daily Potassium Phosphate-Sodium Phosphate (Phos-NaK Oral Powder)?1?pack/packet?By Mouth?2 times a day?for 3?Days Senna (Senna 8.6 mg oral tablet)?17.2?Milligram?2?tab(s)?By Mouth?Daily Sodium Chloride Nasal (Salinex Marshall)?1?spray(s)?Nares, Both?4 times a day?as needed?Other?dryness Thiamine (thiamine 100 mg oral tablet)?100?Milligram?1?tablet?By Mouth?Daily torsemide (torsemide 20 mg oral tablet)?1?tab(s)?20?Milligram?By Mouth?Daily ? Results Recent Labs No labs resulted between 02/09/2022 00:00 and 02/10/2022 12:43? Abnormal Labs No lab data available. ? Cruz ANN, Arash Wallace: PERFORM Event Display: Admission Note Authored Date: Attending Attestation:??I have seen and evaluated this patient on the date of service. ??I have discussed the case and its management with the??resident and agree with the findings and plan as documented in the resident???s note.?? Chronically very ill patient as documented in??H&P??with morbid obesity, COPD on home O2, prior history of HFpEF.?? Admitted to [facility] with respiratory failure??and in that setting??found to have??subsequently develop??shock, stress cardiomyopathy, also evidence for fluid.?? Shealso has not??known??right upper lobe lung mass which was diagnosed as squamous cell carcinoma. ?? Throughout all this has been having issues with??sinus pauses, per report with??worsening progression leading to hemodynamic instability.?? I do wonder how much of this may be related to her underlyingrespiratory status and apnea.?? However, seen by cardiology there??with??concern??that this was limiting care otherwise??so transferred here. ??We have consulted EP for pacemaker.?? Once pacemaker is placed,??primary focus??of??care will be medical, and suspect??related to her underlying respiratory status.?? Will likely need input from pulm??or critical care teams to assist??with??managing her care. EKG study Event Display: EKG Authored Date: Event Display: EKG Authored Date: Event Display: ECG 12-Lead Authored Date: Please click on pdf link to open report Event Display: ECG 12-Lead Authored Date: Ventricular Rate: 87 BPM Atrial Rate: 87 BPM P-R Interval: 192 ms QRS Duration: 100 ms Q-T Interval: 372 ms QTC Calculation(Bazett): 447 ms P [place]: 82 degrees R [place]: 112 degrees T [place]: 107 degrees Sinus rhythm with marked sinus arrhythmia Right axis deviation Pulmonary disease pattern ST and T wave abnormality, consider anterior ischemia Abnormal ECG When compared with ECG of 26-NOV-2021 09:47, Significant changes have occurred Confirmed by JOSELO MURRAY MD ([id number]) on 02/10/2022 2:41:44 PM [place]: JOSELO MURRAY MD Heart Event Display: Echocardiogram - Complete Authored Date: Transthoracic Echocardiography Report (TTE) Patient Demographics Patient Name ОЛЕГ PATINO Date of Study 02/12/2022 Corporate Gender Female Facility Race Black Ethnicity Date of 1945 Height: 66.14 inches Age 76 year(s) Weight: 277.56 pounds Accession Number [id number] BSA: 2.3 m2 Room Number [id number] BMI: 44.61 kg/m2 Referring Physician Janene Mosqueda Interpreting Amparo Montoya MD Physician Pairer Inspector Taylor Ruggiero RCS Indications Heart failure. Clinical History Acute hypoxic respiratory failure on 4L O2 at home COPD Heart Failure/cor pulmonale AYDIN Hypertension. Hyperlipidemia. Severe Obesity. CKD Tobacco use. RUL lung mass Study Data Type of Study TTE procedure:Echo Complete-Doppler, Colorflow, M-Mode. Procedure Information:TDS, patient has CPAP mask on, coughing through out test Study Date02/12/2022 Start Time: 07:25 AM Study Location: [facility] Adult Echo Study Status: ICU/CCU Patient Status: Routine Technical Quality: Technically difficult due to obesity. Blood Pressure:101/54 mmHg EKG: Normal sinus rhythm HR: 83 bpm Allergies - No known allergies. 2D Measurements LV Diastolic Dimension: 4.3 cm LV Systolic Dimension: 2.6 cm LV Septum Diastolic: 2.2 cm LV PW Diastolic: 1 cm AO Root Dimension: 2.8 cm LA Dimension: 3.2 cm LVOT Stroke Volume: 75.36 ml LVOT: 2 cm Stroke Volume Index32.77 ml/m2 Ascending Aorta:2.8 cm Cardiac Index:2.72 l/min/m2 Doppler Measurements AV Peak Velocity: 192 cm/s MV Peak E-Wave: 69.7 cm/s AV Peak Gradient: 14.75 mmHg MV Peak A-Wave: 74.4 cm/s AV Mean Gradient: 8 mmHg MV E/A Ratio: 0.94 AV VTI:29.1 cm MV P1/2t: 70 msec LVOT Peak Velocity: 130 cm/s LVOT VTI24 cm MV Deceleration Time: 239 msec AV Area (Continuity):2.59 cm2 MV Area (PHT): 3.14 cm2 TR Velocity:257 cm/s PV Peak Velocity: 143 cm/s TR Gradient:26.42 mmHg PV Peak Gradient: 8.18 mmHg Estimated RAP:3 mmHg Estimated RVSP: 29.4 mmHg E' Septal Velocity: 6.53 cm/s E' Lateral Velocity: 7.94 cm/s E/Med E':10.19809 E/Lat E':8.855419 Cardiac Anatomy Left Ventricle/Interventricular Septum The left ventricle is normal in size. There is thickening of the interventricular septum at 2.0 cm. Ejection fraction is 60-65%. No definite wall motion abnormalities seen. Normal diastolic function. Left Atrium/Interatrial Septum The left atrium is normal in size. Aortic Valve No significant regurgitation or stenosis. Mitral Valve No significant regurgitation or stenosis. Aorta The ascending aorta and aortic root are normal in size when indexed. Right Ventricle The right ventricle is normal in size. Function appears preserved. Right Atrium The right atrium is normal in size. Pulmonic Valve Trace regurgitation. Tricuspid Valve No significant regurgitation. Pumonary Artery The pulmonary artery systolic pressure estimation is 25-30 mmHg. Venous Structures IVC is normal in size. Inspiratory collapse is likely normal. Pericardium/Extracardiac No significant pericardial effusion seen. Summary The left ventricle is normal in size. There is thickening of the interventricular septum at 2.0 cm. Ejection fraction is 60-65%. No definite wall motion abnormalities seen. Normal diastolic function. The left atrium is normal in size. The right ventricle is normal in size. Function appears preserved. The right atrium is normal in size. The pulmonary artery systolic pressure estimation is 25-30 mmHg. Signature Event Display: Echocardiogram - Complete Authored Date: Hospital Progress note Kyle Arndt: SIGN, MODIFY, PERFORM, MODIFY, SIGN, VERIFY Event Display: Progress Note Hospital Authored Date: Patient: ОЛЕГ PATINO Age: 76 years Sex: Female : 1945 Associated Diagnoses: None Author: Kyle Arndt Findings Problem Related to Alteration in Cardiac Function (new) : Alteration in Cardiac Function/new 02/23/2022 10:24 EST Alteration in Cardiac Status Related to Cardiac Procedure, Dysrhythmia, Heart failure Goals & Outcomes, Cardiac Status Pt will resume/maintain adequate cardiac output, Pt will resume/maintain adequate hemodynamic status, Pt will resume/maintain adequate respiratory function, Pt will resume/maintain intact neuro function, Pt will maintain adequate GI/ function appropriate for pt,Pt will maintain adequate nutrition status Cardiac Interventions Implemented Assess/monitor cardiac status, Assess/monitor neuro status, Assess/monitor respiratory status, Call/Report variances in ECG to provider, Monitor & document daily weight, Monitor ECG w/administration of antiarrhythmics (CO 13.420), Prep pt for treatments & procedures, Teach/encourage deep breath & cough exercises, Teach/encourage use of incentive spirometer, Team conversation regarding appropriate level of care, Turn & reposition Q2 hours per activity restrictions, Monitor electrolytes and replace as ordered, Monitor VS with each burst of rhythm/rate disturbance, Monitor VS with rhythm/rate disturbance BH Goals/Interventions, Cardiac Yes Cardiac, Problem Start 02/10/2022 18:05 Reviewed Plan with, Cardiac Status Patient Patient Progression, Cardiac Status Patient progressing according to plan . Alteration in Respiratory Function (new) : Alteration in Respiratory Function/new 02/23/2022 10:24 EST Alteration in Resp Status Related to COPD, Other: AYDIN Goals & Outcomes, Respiratory Pt will maintain/resume baseline physical assessment, Pt will maintain adequate nutritional intake, Pt will maintain/resume normal fluid/electrolyte balance, Pt will not develop complications r/t immobility, Pt will demonstrate proper technique w/self care procedures Interventions, Respiratory Assess/monitor tolerance to IV infusions; verify rate/dose, Assess for and report S&S of respiratory distress, Position for comfort & optimal oxygenation, Initiate pulmonary rehab nurse consult, Monitor sputum color & consistency. Report changes to MD, Teach/encourage use of incentive spirometer, Teach the proper use of inhalers, Teach Pt/caregiver Smoking cessation education, Teach purse lip breathing as needed for breathing retraining, Teach tripod positioning to promote air exchange BH Goals/Interventions, Respiratory Yes Respiratory, Problem Start 02/22/2022 16:50 Reviewed Plan with, Respiratory Patient Patient Progression, Respiratory Patient progressing according to plan . Nursing Data Respiratory/Pulmonary Data. : Respiratory/Pulmonary Data. 02/23/2022 7:54 EST Respiratory Symptoms Dyspnea with exertion Cough Non-productive Right Middle Lobe Breath Sounds Diminished Left Lower Lobe Breath Sounds Diminished Right Lower Lobe Breath Sounds Diminished Respiratory Treatment(s) Cough and deep breathe, Incentive spirometry, Updraft Nebulizer Therapy/MDI Respiratory WNL except . Vital Signs : VITAL SIGNS SECTION 02/23/2022 12:05 EST Temperature 98.9 DegF Temperature Route Oral Pulse Rate 75 bpm Respiratory Rate 18 br/min Systolic Blood Pressure 142 mm Hg H Diastolic Blood Pressure 57 mm Hg Blood pressure sites Arm, right Mean Arterial Pressure 85 mm Hg Pulse Pressure 85 mm Hg Oxygen Saturation 92 % L Liters per Minute 3 L/min Mode of Delivery (Oxygen) Nasal cannula . Narrative/Incidental Head: Normocephalic, atraumatic Eyes: Anicteric, vision grossly intact. Ears: no auricular pain, erythema or exudate observed. Nose: nares patent Throat: Trachea midline. no erythema or exudates observed. Tongue midline, anterioposterior pillars rise symmetrically, Chest rise symmetrical. Breathing is non-labored. No use of accessory muscles or cyanosis observed. No clubbing observed. Pt lung sounds clear to auscultation, SpO2 94-96% on 4L via nasal cannula. Pt observed to be short of breath with exertion/rolling in bed. Scheduled breathing treatments given per orders. Pt educated on cough/deep breathing and use of incentive spirometer. Pt denies chest pain or discomfort. Pt afebrile. S1,S2 heard, on auscultation. Peripheral pulses present and equal bilaterally. BLLE edema observed, pt skin observed to be warm and dry, no JVD observed. Positive bowel sounds x4, pt denies n/v/d. Pt on sodium restricted diet tolerating well. Medicationstaken whole, no swallowing difficulty observed/reported by patient. Pt denies abdominal pain, no tenderness to palpation. Pt voiding via purewick, urine clear, yellow. Pt denies dysuria, urgency, frequency, hesitancy or difficulty urinating, no bladder distension observed. Activity as tolerated. Positive movement and ROM in all 4 extremities. No joint tenderness or swelling observed. Patient has wounds to perineal/coccyx, wound care done per orders. Pt repositioned q2-3h for decubitus prevention Patient alert and oriented x3, speech clear. CN II-XII grossly intact. Pupils equal round and reactive to light, EOMI, no nystagmus observed. Positive motor function x4 extremities, motor function symmetrical. Sensation intact bilaterally. Pt denies pain Plan of care updated, call hi within reach, will continue to monitor for comfort and safety. .Kyle Arndt: PERFORM Event Display: Progress Note Hospital Authored Date: Patient discharged home, left unit via stretcher with ambulance personnel. IV catheter removed with tip intact and pressure dressing applied. Patient verbalized understanding of discharge plan.Neno Briones RN: PERFORM, SIGN, VERIFY, SIGN, MODIFY Event Display: Progress Note Hospital Authored Date: Patient: ОЛЕГ PATINO Age: 76 years Sex: Female : 1945 Associated Diagnoses: None Author: Neno Briones RN Findings Narrative/Incidental Patient A&O X3 on 4L NC. Patient denies nausea/vomiting, numbness/tingling, and pain. Patient's lab results returned. Albumin 2.8, Potassium 3.4 Provider Andrea Sharma notified. +Pulses, +Bowel sounds. Able to make needs known. Call hi within reach.See Biophysical for details. Safety measures in place. Bed locked in lowest position. Will continue to monitor. lab results returned. . Discharge Information Pulmonary Rehab Discharge : Pulmonary Rehab Discharge Status 02/22/2022 1:12 EST CPAP/BiPAP Mask Type Full CPAP/BiPAP Mask Size Large 02/20/2022 23:47 EST CPAP/BiPAP Mask Type Full CPAP/BiPAP Mask Size Medium 02/20/2022 3:30 EST CPAP/BiPAP Mask Type Full CPAP/BiPAP Mask Size Medium 02/20/2022 0:23 EST CPAP/BiPAP Mask Type Pillows CPAP/BiPAP Mask Size Medium 02/19/2022 3:50 EST CPAP/BiPAP Mask Type Full CPAP/BiPAP Mask Size Large 02/18/2022 23:01 EST CPAP/BiPAP Mask Type Full CPAP/BiPAP Mask Size Large 02/18/2022 4:27 EST CPAP/BiPAP Mask Type Full CPAP/BiPAP Mask Size Large 02/18/2022 0:16 EST CPAP/BiPAP Mask Type Full CPAP/BiPAP Mask Size Jaci Mcdonald RNh: PERFORM Event Display: Progress Note Hospital Authored Date: 40 mEq Potassium chloride administered as orderedEliane Lal RN: PERFORM, SIGN, VERIFY, MODIFY, SIGN, SIGN, MODIFY Event Display: Progress Note Hospital Authored Date: Patient: ОЛЕГ PATINO Age: 76 years Sex: Female : 1945 Associated Diagnoses: None Author: Eliane Lal RN Findings Problem Related to Alteration in Respiratory Function (new) : Alteration in Respiratory Function/new 02/22/2022 16:00 EST Alteration in Resp Status Related to COPD, Other: AYDIN Goals & Outcomes, Respiratory Pt will maintain/resume baseline physical assessment, Pt will maintain adequate nutritional intake, Pt will maintain/resume normal fluid/electrolyte balance, Pt will not develop complications r/t immobility, Pt will demonstrate proper technique w/self care procedures Interventions, Respiratory Assess for and report S&S of respiratory distress, Position for comfort & optimal oxygenation, Initiate pulmonary rehab nurse consult, Monitor sputum color & consistency. Report changes to MD MOE Goals/Interventions, Respiratory Yes Respiratory, Problem Start 02/22/2022 16:50 Reviewed Plan with, Respiratory Patient Patient Progression, Respiratory Plan Initiation . Narrative/Incidental Pt. is A&O x 3 and can make needs known. O2 via nc at 4L and oxygen level >95%. Continuous [id number] in place and had two episodes of oxygen desating into high 70's. Both episodes patient had oxygen off and once oxygen replaced O2 sat rebounded and remained >95% Denies any CP, pain or dizziness. Please see Biophysical form for further detailed assessment. Safety measures in place, call hi within reach, bed in lowest locked position and horly rounding on going. . Portable XR Chest Views BHSPnasimascJODY whyte S: TRANSCRISoco Wolf MD: VERIFY Event Display: Result: Authored Date: [id number] Chest Portable Reason: Shortness of Breath COMPARISON: 02/12/2022 FINDINGS: LINES AND TUBES: Similar position of pacer. Overlying monitoring electrodes. LUNGS AND PLEURA: Neck is flexed over the upper chest, limiting evaluation of the apices Persistent asymmetric right upper lung large opacity. There is lower lobe atelectasis. Bilateral small pleural effusions. HEART, MEDIASTINUM AND PARDEEP: Cardiomegaly. Aortic arch atherosclerosis. BONES AND SOFT TISSUES: No radiographic change. IMPRESSION: No radiographic change. There is a known right upper lung mass. Bilateral small pleural effusions with lower lung atelectasis. WSN: [id number] Ordering Physician: Mateusz Abdi Dictated By: Soco Peace MD Dictated Date/Time: 02/14/22 1:49 pm Reviewed By: Soco Peace MD Signed By: Soco Peace MD Signed Date/Time: 02/14/22 1:49 pm Transcribed By: CASSIDY Transcribed Date/Time: 02/14/22 1:47 pmJODY Manuel S: Nan Stanford MD I: VERIFY Event Display: Result: Authored Date: [id number] Chest Portable Reason: Line Placement COMPARISON: 02/14, 02/12/2022 and 11/29/2021. FINDINGS: LINES AND TUBES: Dual-chamber cardiac pacemaker again noted. LUNGS AND PLEURA: Very large right upper lobe mass measuring at least 11 cm. This is similar to recent prior x-rays and appears increased when compared to previous exams dating back to November 2021. There is consolidation/infiltrate in the right lower lobe as well and milder atelectasis or infiltrate in the left lung base. Small left pleural effusion. No pneumothorax. HEART, MEDIASTINUM AND PARDEEP: Stable appearing cardiomediastinal silhouette. Stable mediastinal and hilar contour. BONES AND SOFT TISSUES: No acute abnormality. IMPRESSION: Stable appearing chest when compared to recent prior x-rays, including very large right upper lobe mass measuring at least 11 cm. There is consolidation/infiltrate in the right lower lobe as well and milder atelectasis or infiltrate in the left lung base. Small left pleural effusion. WSN: [id number] Ordering Physician: Faith Wakefield Dictated By: Nan Christianson MD, I Dictated Date/Time: 02/14/22 6:55 pm Reviewed By: Nan Christianson MD, I Signed By: Nan Christianson MD, I Signed Date/Time: 02/14/22 6:55 pm Transcribed By: CASSIDY Transcribed Date/Time: 02/14/22 6:50 pm Patient Care team information Care Team PersonnelName: Eric Hopkins RN Position: [facility] RN Member Role: Primary Care Nurse Name: Kandis Mann RN Position: [facility] RN Supv Member Role: Primary Care Nurse Name: Norma Olivo RN Position: [facility] RN Member Role: Primary Care Nurse Name: Sara Glass RN Position: [facility] AMB Nurse Member Role: Primary Care Nurse Name: Rena Watts RN Position: [facility] RN Member Role: Primary Care Nurse Name: Fely Love RN Position: [facility] RN Member Role: Primary Care Nurse Name: Jennifer Red RN Position: [facility] RN Member Role: Primary Care Nurse Name: Samy Conn RN Position: [facility] RN Member Role: Primary Care Nurse Name: Holly Shultz RN Position: [facility] RN Member Role: Primary Care Nurse Name: Gina Cortes RN Position: [facility] RN Member Role: Primary Care Nurse Name: Nabil Friedman RN Position: [facility] RN Member Role: Primary Care Nurse Name: Hailey Lara RN Position: [facility] RN Member Role: Primary Care Nurse Name: Matilda Caldwell RN Position: [facility] ED RN W/OE and Tasks Member Role: Primary Care Nurse Name: Eric Lombardi RN Position: [facility] RN Member Role: Primary Care Nurse Name: Verónica Wilson RN Position: [facility] RN Member Role: Primary Care Nurse Name: Blanca Hearn NP Position: S Outreach Member Role: PCP Address: Address: [address] [place] [id number]- Name: Yaa Patel RN Position: S RN Member Role: Primary Care Nurse Name: Carolyn Ibarra Position: S RN Member Role: Primary Care Nurse Name: Samy Calloway RN Position: [facility] RN Member Role: Primary Care Nurse Name: Ivonne Romero RN Position: [facility] RN Supv Member Role: Primary Care Nurse Name: Lona Mancera RN Position: [facility] RN Member Role: Primary Care Nurse Name: Michelle Garcia RN Position: [facility] RN Member Role: Primary Care Nurse Care Team Related PersonsName: ELIGIO PATINO Address: home [address] [address] Name: NAVJOT AYALA
--- OUTSIDE RECORDS SUMMARY | 2022-03-04 00:52 | XMS_ITS | Continuity of Care Document ---
:1945 Author Organization [facility] Address [address] [place] [id number]- Care Team Providers Name Role Phone Dhiraj LEGGETT, Blanca Primary Care Physician [place] [facility] [place] - 02/20/[address] [address]- Encounter Diagnosis History of COPD (Final) - 02/12/20 Hypoxia (Final) - 02/12/20 CHF exacerbation (Final) - 02/12/20 Peripheral edema (Final) - 02/12/20 Pulmonary edema (Final) - 02/12/20 Discharge Disposition: A-D/C Home Attending Physician: Oliva Castillo MD Admitting Physician: Shannon Gonzalez MD Referring Physician: Not on Staff, Referring MD Allergies, Adverse Reactions, Alerts Substance Reaction Severity Status NKA Active Medications aspirin 81 mg oral delayed release tablet 81 mg, By Mouth, Daily, # 30 tablet, Refills 3, Tot. Refills 3, Maintenance, 02/20/20 9:09:00 EST, Route to Pharmacy Electronically, [facility], Partial fill upon patient request if the prescription is for a schedule II opioid drug., 167... Start Date: 02/20/20 Status: Orderedatorvastatin 40 mg oral tablet 1 tablet = 40 mg, By Mouth, Daily at bedtime, # 30 tablet, 3 Refills, Maintenance, 02/20/20 9:09:00 EST, Tablet, [facility], Partial fill upon patient request if the prescription is for aschedule II opioid drug., 167, cm, 02/20/20 8:05:... Start Date: 02/20/20 Status: Orderedspironolactone 25 mg oral tablet 25 mg, 1, tablet, By Mouth, Daily, # 30 tablet, Refills 3, Tot. Refills 3, Maintenance, 02/20/20 9:09:00 EST, Route to Pharmacy Electronically, [facility], Partial fill upon patient request if the prescription is for a schedule II opioid... Start Date: 02/20/20 Status: Orderedtorsemide 20 mg oral tablet 1 tablet = 20 mg, By Mouth, Daily, # 30 tablet, 3 Refills, Maintenance, 02/20/20 9:09:00 EST, Tablet, [facility], Partial fill upon patient request if the prescription is for a schedule II opioid drug., 167, cm, 02/20/20 8:05:00 EST, Hei... Start Date: 02/20/20 Status: Ordered Problem List Condition Effective Dates Status Health Status Informant Uterovaginal Prolapse, Active Complete(Confirmed) Results Radiology Reports Exam Date Time Procedure Performing Provider Status 02/12/20 11:44 AM Chest Portable Elaine Tanner; Nkechi (Verified ) Notes:(Chest Portable) Reason For Exam: Shortness of BreathRESULT: Chest Portable Chest Portable Hx of Present Illness: Sent by visiting nurse for SOB and pedal edema.; Reason: Shortness of Breath;Clinical Question(s): CHF COMPARISON: None. FINDINGS: LINES AND TUBES: None. LUNGS AND PLEURA: Low lung volumes. Indistinct pulmonary vasculature and interstitium with hazy confluent markings in the right mid to lower lung. No pleural effusion. No pneumothorax. HEART, MEDIASTINUM AND PARDEEP: Heart is at the upper limits of normal for size accounting for low lung volumes and exam projection. Normal upper mediastinal and hilar contour. BONES AND SOFT TISSUES: No acute abnormality. IMPRESSION: Indistinct pulmonary vasculature with hazy opacities suggesting pulmonary edema. No definite pleuraleffusion. WSN: [id number] Ordering Physician: Yaquelin Armendariz Dictated By: Lona Espinoza MD Dictated Date/Time: 02/12/20 11:56 a Reviewed By: Lona Espinoza MD Signed By: Lona Espinoza MD Signed Date/Time: 02/12/20 11:56 am Transcribed By: CASSIDY Transcribed Date/Time: 02/12/20 11:53 am Vital Signs Most recent to oldest 1 2 3 [Reference Range]: Height 167 cm 167 cm 167 cm (02/20/20 8:05 AM) (02/20/20 1:18 AM) (02/19/20 7:54 PM) Weight 113.0 kg 112.6 kg 113.9 kg (02/20/20 6:23 AM) (02/19/20 6:43 AM) (02/18/20 12:23 PM) Oxygen Saturation [94-100 95 % 95 % 94 % %] (02/20/20 8:05 AM) (02/20/20 1:18 AM) (02/19/20 7:54 PM) Pulse Rate [55-90 bpm] 78 bpm 86 bpm 84 bpm (02/20/20 8:05 AM) (02/20/20 1:18 AM) (02/19/20 7:54 PM) Body Mass Index 46.54 45.54 45.54 [18.5-24.99] *>HHI* *>HHI* *>HHI* (02/13/20 2:38 AM) (02/13/20 2:05 AM) (02/12/20 10:40 PM) Blood Pressure 126/66 mm Hg 110/60 mm Hg 131/66 mm Hg [90-138/55-84 mm Hg] (02/20/20 8:05 AM) (02/20/20 1:18 AM) (01/23 10/11 7:54 PM) Respiratory Rate [16-30 18 br/min 18 br/min 18 br/mi n br/min] (02/20/20 8:05 AM) (02/20/20 1:18 AM) (02/19/20 7:54 PM) Temperature [96.8-100.4 97.4 DegF 96.4 DegF 97.4 Deg F DegF] (02/20/20 8:05 AM) *L* (02/19/20 7:5 4 PM) (02/20/20 1:18 AM) Liters per Minute 2.5 L/min 2 L/min 2 L/min (02/20/20 8:05 AM) (02/20/20 1:18 AM) (02/19/20 7:54 PM) Mode of Delivery (Oxygen) Nasal cannula Nasal cannula Nasal cannula (12/29/20 8:05 AM) (02/20/20 1:18 AM) (02/19/20 7:54 PM) Blood pressure sites Arm, left Arm, left Arm, right (02/20/20 8:05 AM) (02/20/20 1:18 AM) (02/19/20 7:54 PM) Temperature Route Temporal Temporal Temporal (02/20/20 8:05 AM) (02/20/20 1:18 AM) (02/19/20 7:54 PM) Dry Weight 119.2 kg 127 kg 127 kg (02/15/20 6:46 AM) (02/13/20 2:38 AM) (02/13/20 2:05 AM) Weight Obtained Via Bed scale Bed scale Bed scale (02/20/20 6:23 AM) (02/19/20 6:43 AM) (02/18/20 6:33 AM) Social History Social History Type Response Tobacco Use: 4 or less cigarettes(le ss than 1/4 pack)/day in last 30 days. Sex
--- OUTSIDE RECORDS SUMMARY | 2022-03-04 00:52 | XMS_ITS | Continuity of Care Document ---
:1945 Author Organization [facility] Address [address] [place] [address], [address] [place] [address]- Care Team Providers Name Role Phone Dhiraj LEGGETT, Blanca Primary Care Physician Encounter [facility] Date(s): 01/07/22 - 02/06/22 [facility] [address] [place] [address], [address] [place], [place] [address] Allergies, Adverse Reactions, Alerts No Known Allergies [...] 02/20/20 9:09:00 EST, Route to Pharmacy Electronically, [facility], Partial fill upon patient request if the prescription is for a schedule II opioid drug., 167... Start Date: 02/20/20 Status: Orderedatorvastatin 40 mg oral tablet 1 tablet = 40 mg, By Mouth, Daily at bedtime, # 30 tablet, 3 Refills, Maintenance, 02/20/20 9:09:00 EST, Tablet, [facility], Partial fill upon patient request if [...] 17:04:56EDT, Compound Start Date: 08/12/18 Status: Orderedergocalciferol 21782 iu oral capsule By Mouth, Every week, [...] Inhalation Suspension Start Date: 12/02/21 Status: OrderedSalinex Trenary 1 sprays, Nares, Both, 4 times a day, PRN Other, dryness, 0 Refills, Maintenance, 12/02/21 11:19:00 EDT, Nasal Trenary, Partial fill upon patient request if the [...] Refills, Maintenance, 02/20/20 9:09:00 EST, Tablet, [facility], Partial fill upon patient request if [...] Care Team PersonnelName: Eric Hopkins RN Position: [facility] RN Member Role: Primary Care Nurse Name: Kandis Mann RN Position: [facility] RN Supv Member Role: Primary Care Nurse Name: Norma Olivo RN Position: S RN Member Role: Primary Care Nurse Name: Sara Glass RN Position: [facility] AMB Nurse Member Role: Primary Care Nurse Name: Rena Watts RN Position: [facility] RN Member Role: Primary Care Nurse Name: Fely Love RN Position: [facility] RN Member Role: Primary Care Nurse Name: Gina Cortes RN Position: [facility] RN Member Role: Primary Care Nurse Name: Verónica Wilson RN Position: [facility] RN Member Role: Primary Care Nurse Name: Blanca Hearn NP Position: [facility] Outreach Member Role: PCP Address: Address: [address] [place] [address] Name: Yaa Patel RN Position: [facility] RN Member Role: Primary Care Nurse Name: Carolyn Ibarra Position: [facility] RN Member Role: Primary Care Nurse Name: Samy Calloway RN Position: [facility] RN Member Role: Primary Care Nurse Name: Ivonne Romero RN Position: [facility] RN Supv Member Role: Primary Care Nurse Name: Michelle Garcia RN Position: S RN Member Role: Primary Care Nurse Care Team Related PersonsName: ELIGIO PATINO Address: home [address] [address] Name: NAVJOT AYALA
--- OUTSIDE RECORDS SUMMARY | 2022-03-04 00:52 | XMS_ITS | Continuity of Care Document ---
:1945 Author Organization [facility] Address [address] [place] [address]- Care Team Providers Name Role Phone Dhiraj LEGGETT, Blanca Primary Care Physician [place] [facility] [place] 09/23/20 - 10/23/20 [facility] [address] [address]- Attending Physician: Lowell Bradford Admitting Physician: Lowell Bradford Referring Physician: AdmtrLowell Allergies, Adverse Reactions, Alerts Substance Reaction Severity Status NKA Active Medications aspirin 81 mg oral delayed release tablet 81 mg, By Mouth, Daily, # 30 tablet, Refills 3, Tot. Refills 3, Maintenance, 02/20/20 9:09:00 EST, Route to Pharmacy Electronically, [facility], Partial fill upon patient request if the prescription is for a schedule II opioid drug., 167... Start Date: 02/20/20 Status: Orderedatorvastatin 40 mg oral tablet 1 tablet = 40 mg, By Mouth, Daily at bedtime, # 30 tablet, 3 Refills, Maintenance, 02/20/20 9:09:00 EST, Tablet, [facility], Partial fill upon patient request if the prescription is for aschedule II opioid drug., 167, cm, 02/20/20 8:05:... Start Date: 02/20/20 Status: Orderedspironolactone 25 mg oral tablet 25 mg, 1, tablet, By Mouth, Daily, # 30 tablet, Refills 3, Tot. Refills 3, Maintenance, 02/20/20 9:09:00 EST, Route to Pharmacy Electronically, [facility], Partial fill upon patient request if the prescription is for a schedule II opioid... Start Date: 02/20/20 Status: Orderedtorsemide 20 mg oral tablet 1 tablet = 20 mg, By Mouth, Daily, # 30 tablet, 3 Refills, Maintenance, 02/20/20 9:09:00 EST, Tablet, [facility], Partial fill upon [...]
--- OUTSIDE RECORDS SUMMARY | 2022-03-04 00:52 | XMS_ITS | Continuity of Care Document ---
:1945 Author Organization [facility] Address [address] [place] [address]- Care Team Providers Name Role Phone Dhiraj LEGGETT, Blanca [id number] - 10[facility]23[facility] [address]- Attending Physician: Fred Esquivel MD Admitting Physician: Fred Esquivel MD Referring Physician: Fred Esquivel MD Allergies, Adverse Reactions, Alerts Substance Reaction Severity Status NKA Active Medications aspirin 81 mg oral delayed release tablet 81 mg, By Mouth, Daily, # 30 tablet, Refills 3, Tot. Refills 3, Maintenance, 02/20/20 9:09:00 EST, Route to Pharmacy Electronically, [facility], Partial fill upon patient request if the prescription is for a schedule II opioid drug., 167... Start Date: 02/20/20 Status: Orderedatorvastatin 40 mg oral tablet 1 tablet = 40 mg, By Mouth, Daily at bedtime, # 30 tablet, 3 Refills, Maintenance, 02/20/20 9:09:00 EST, Tablet, [facility], Partial fill upon patient request if the prescription is for aschedule II opioid drug., 167, cm, 02/20/20 8:05:... Start Date: 02/20/20 Status: Orderedspironolactone 25 mg oral tablet 25 mg, 1, tablet, By Mouth, Daily, # 30 tablet, Refills 3, Tot. Refills 3, Maintenance, 02/20/20 9:09:00 EST, Route to Pharmacy Electronically, [facility], Partial fill upon patient request if the prescription is for a schedule II opioid... Start Date: 02/20/20 Status: Orderedtorsemide 20 mg oral tablet 1 tablet = 20 mg, By Mouth, Daily, # 30 tablet, 3 Refills, Maintenance, 02/20/20 9:09:00 EST, Tablet, [facility], Partial fill upon patient [...]
[2022-03-04] MEDS: cefTRIAXone sodium 1 GM in 0.9 % Sodium Chloride 50 ML IV (01:23)
[2022-03-04] MEDS: 0.9 % Sodium Chloride 1,000 ML 500 ML IVCONT (01:24)
--- NOTE | 2022-03-04 01:58 | PC.NURSE ---
IVF started along with 1st abx. IV began to infiltrate. Left IV was removed and a new IV was placed in the right AC. ABX and IVF restarted. 2nd Abx will be administered as soon as the 1st abx completes.
[2022-03-04] MEDS: Azithromycin 500 MG in 0.9 % Sodium Chloride 250 ML 125 MG IV (02:35)
--- NOTE | 2022-03-04 03:00 | MHC.EDTECH ---
Yaneth care done on patient. Pt now has a purewick. Pillow put under right side to alleviate pressure on her bottom. Will change to left side in a few hours.
--- NOTE | 2022-03-04 03:08 | PC.NURSE ---
Repositioned pt. in bed, took off brief pt. had been wearing and placed purwick. Pt. has multiple bed sores on her buttocks. Picture was tiger texted to provider. Azithromycin is hanging at 100mL/hr. Pt. resting quietly in bed.
--- NOTE | 2022-03-04 03:39 | PC.NURSE ---
Pt. creatinine elevated. wants a repeat chemistry after fluids have run. Order was placed for repeat bmp.
[2022-03-04 04:01] LABS: Troponin-I High Sensitivity 345.2 ng/L (<3.5-17.0)
[2022-03-04] MEDS: Potassium Chloride Packet 20 MEQ PACKET 40 MEQ PO (04:03)
--- NOTE | 2022-03-04 04:05 | PC.NURSE ---
Addendum entered by Vilma Moreno RN 03/04/22 06:11: report given to NATE Decker Original Note: report received from NATE Alford pt is alert and oriented resting in bed no signs of acute distress notice breathing equally unlabored pt on continuos cardiac monitoring
[2022-03-04 04:46] LABS: Anion Gap 19 (12-20); Blood Urea Nitrogen 21 mg/dL (9-16); Carbon Dioxide 38 mmol/L (22-29); Chloride 86 mmol/L (96-108); Estimated Glomerular Filt Rate 31; Glucose Random 89 mg/dL (60-115); Potassium 3.3 mmol/L (3.3-5.1); Sodium 140 mmol/L (135-145)
--- NOTE | 2022-03-04 05:02 | MHC.EDTECH ---
Addendum entered by Darío Andrea 03/04/22 05:03: and PTINR Original Note: per Dr. Springer the PTT does not need to be drawn again.
[2022-03-04] MEDS: Heparin Sodium,Porcine/1/2NS 25,000 UNIT/250 ML IV.SOLN 16.8 UNIT IVCONT (05:09)
--- NOTE | 2022-03-04 06:19 | P.HPHOSP_ITS ---
History of Present Illness Date of Service: 03/04/22 Chief Complaint: low bp at [facility] this is a 76-year-old female with past medical history of chronic respiratory failure with hypoxia, chronic kidney disease, dysphagia, hyperlipidemia, morbid obesity, heart block status post pacemaker, chronic diastolic heart failure, HTN, COPD, lung cancer, AYDIN, presents the hospital after her blood pressure was found to be low at the [place] [facility] as well as have hypoxia reported to be 70s. On arrival of EMS patient's blood pressure was normal recorded as 110/50 with an O2 of 93-94% on 4 L of oxygen. Patient on baseline 3-4 L of O2. Pt reports that she was told she is dehydrated. She states that she has been having N/V no chest pain at this time but says that she has chest pain sometimes, denies any SOB, no cough, no sputum production, no abdominal pain nausea or vomiting, no diarrhea reports constipation for many days, reports that she has small saulo of stool., no urinary symptoms and no lower extremity ed mary. On arrival to the ED patient hemodynamically stable with a blood pressure 92/32 currently 120/47, Labs are significant for WBC count of 15.4, hemoglobin 10.4, medical 35, INR of 1.3, sodium 138, potassium 3.1, chloride of 83, creatinine of 1.[address] line for comparison, troponin of 163 that increased to 345, EKG shows EKG shows T-wave inversions in 1 to aVL, as well as leads V4 V5 and V6 with ST depressions in V4 V5 and V6 chest x-ray shows pneumonia of right upper lobe Patient started on heparin drip and will be admitted for further management Review of Systems Review of Systems: Yes all other systems are reviewed and are negative [facility] Medical History CHF (congestive heart failure) Chronic respiratory failure CKD (chronic kidney disease) COPD (chronic obstructive pulmonary disease) HLD (hyperlipidemia) HTN (hypertension), benign Lung cancer Social History (Updated 03/04/22 @ 06:30 by Kleber Ayala MD) Alcohol intake: unknown Patient Tobacco Use Status: Former Tobacco user Use of substances other than those prescribed or required for medical reasons: No Advance Directives: No Advance Directives Information Provided: Yes Meds Allergies Allergy/AdvReac Type Severity Reaction Status Date / Time No Known Allergies Allergy Verified 03/03/22 22:55 Active Medications: Current Medications Acetaminophen (Acetaminophen 325 Mg Tablet) 650 mg PO Q6H PRN PRN Reason: Pain, Mild (Pain Scale 1-3) Docusate Sodium (Docusate Sodium 100 Mg Capsule) 100 mg PO DAILY PRN PRN Reason: Constipation Heparin Sodium (Porcine) (Heparin Sodium,Porcine 5,000 Unit/Ml Vial) 4,800 unit 40 unit/kg (4800 unit) IVPUSH PROTOCOL BOLUS PRN; Protocol PRN Reason: 40 unit/kg - Heparin Protocol Heparin Sodium (Porcine) (Heparin Sodium,Porcine 5,000 Unit/Ml Vial) 9,600 unit 80 unit/kg (9600 unit) IVPUSH PROTOCOL BOLUS PRN; Protocol PRN Reason: 80 unit/kg - Heparin Protocol Heparin Sodium/Sodium Chloride (Heparin Sodium,Porcine/1/2ns) 25,000 unit in 250 mls @ 0 mls/hr IVCONT .Q0M [facility]; Protocol Last Admin: 03/04/22 05:09 Dose: 14 units/kg/hr, 16.8 mls/hr Ondansetron HCl (Ondansetron Hcl 4 Mg/2 Ml Vial) 4 mg IVPUSH Q8H PRN PRN Reason: Nausea and Vomiting Sodium Chloride (0.9 % Sodium Chloride Flush 3 Ml Syringe) 3 ml IVFLUSH QSHIFT [facility] Physical Exam Vital Signs and Narrative: Vital Signs: Last Vital Signs Temp 97.8 F 03/04/22 05:31 Pulse 81 03/04/22 05:31 Resp 21 H 03/04/22 05:31 BP 120/47 L 03/04/22 05:31 Pulse Ox 100 03/04/22 05:31 O2 Del Method 03/04/22 05:31 O2 Flow Rate 4 03/04/22 05:31 Oxygen Flow Rate 4 03/03/22 22:58 BMI result Body Mass Index 42.7 Const: Other: oriented to self and place, answers questions appropriately General: cooperative and no acute distress Eyes: General: appearance normal, both eyes and all related structures Resp: Effort & Inspection: normal respiratory effort Auscultation: clear to auscultation bilaterally Cardio: Rate: regular rate Rhythm: regular rhythm GI: Other: abdomen is soft, nontender Palpation (GI): Soft to palpation Auscultation: normal bowel sounds Skin: General skin exam: no rashes or lesions noted Neuro: Cognition (Neuro): normal cognition Extrem: General: Yes normal to inspection and Yes no pedal edema Results Labs 03/04/22 00:13 03/04/22 04:26 Labs: Laboratory Results - last 24 hr 03/03/22 03/04/22 03/04/22 23:57 00:12 00:12 MCV MCH MCHC RDW Plt Count MPV Immature Gran % (Auto) Neut % (Auto) Lymph % (Auto) Sebastian % (Auto) Eos % (Auto) Baso % (Auto) Lymph # (Auto) Sebastian # (Auto) Eos # (Auto) Baso # (Auto) Abs Immat Gran (auto) Absolute Neuts (auto) Absolute Nucleated RBC Nucleated RBC % (auto) PT INR D-Dimer High Sensitivty 927 ntenderAnion Gap Estim Creat Clear Calc Estimated GFR Random Glucose Lactic Acid Calcium Magnesium Total Bilirubin Direct Bilirubin AST ALT Alkaline Phosphatase Troponin I High Sens B-Natriuretic Peptide 172 H Total Protein Albumin COVID-19 (SHANEL) Negative COVID-19 Clin Com See Note 03/04/22 03/04/22 03/04/22 00:13 00:13 00:13 MCV 97.2 MCH 28.9 MCHC 29.7 L RDW 14.6 Plt Count 690 H MPV 9.3 L Immature Gran % (Auto) 2.1 H Neut % (Auto) 89.4 H Lymph % (Auto) 3.8 L Sebastian % (Auto) 4.4 Eos % (Auto) 0.0 Baso % (Auto) 0.3 Lymph # (Auto) 0.6 L Sebastian # (Auto) 0.7 Eos # (Auto) 0.0 Baso # (Auto) 0.0 Abs Immat Gran (auto) 0.33 H Absolute Neuts (auto) 13.7 H Absolute Nucleated RBC 0.000 Nucleated RBC % (auto) 0.0 PT 15.5 H INR 1.3 H D-Dimer High Sensitivty Anion Gap 18 Estim Creat Clear Calc 36.8 Estimated GFR 28 Random Glucose 107 Lactic Acid Calcium 9.3 Magnesium 1.6 Total Bilirubin 1.2 H Direct Bilirubin 0.6 H AST 22 ALT 10 Alkaline Phosphatase 78 Troponin I High Sens B-Natriuretic Peptide Total Protein 6.9 Albumin 3.0 L COVID-19 (SHANEL) COVID-19 [employer] Com 03/04/22 03/04/22 03/04/22 00:13 00:13 03:33 MCV MCH MCHC RDW Plt Count MPV Immature Gran % (Auto) Neut % (Auto) Lymph % (Auto) Sebastian % (Auto) Eos % (Auto) Baso % (Auto) Lymph # (Auto) Sebastian # (Auto) Eos # (Auto) Baso # (Auto) Abs Immat Gran (auto) Absolute Neuts (auto) Absolute Nucleated RBC Nucleated RBC % (auto) PT INR D-Dimer High Sensitivty Anion Gap Estim Creat Clear Calc Estimated GFR Random Glucose Lactic Acid 0.9 Calcium Magnesium Total Bilirubin Direct Bilirubin AST ALT Alkaline Phosphatase Troponin I High Sens 164.3 H* 345.2 H* D B-Natriuretic Peptide Total Protein Albumin COVID-19 (SHANEL) COVID-19 [employer] Com 03/04/22 04:26 MCV MCH MCHC RDW Plt Count MPV Immature Gran % (Auto) Neut % (Auto) Lymph % (Auto) Sebastian % (Auto) Eos % (Auto) Baso % (Auto) Lymph # (Auto) Sebastian # (Auto) Eos # (Auto) Baso # (Auto) Abs Immat Gran (auto) Absolute Neuts (auto) Absolute Nucleated RBC Nucleated RBC % (auto) PT INR D-Dimer High Sensitivty Anion Gap 19 Estim Creat Clear Calc 40.0 Estimated GFR 31 Random Glucose 89 Lactic Acid Calcium 9.0 Magnesium Total Bilirubin Direct Bilirubin AST ALT Alkaline Phosphatase Troponin I High Sens B-Natriuretic Peptide Total Protein Albumin COVID-19 (SHANEL) COVID-19 [facility] Radiologist's Impressions: Impressions Chest X-Ray 03/03/22 23:36 IMPRESSION: 1. Dense right upper lobe airspace consolidation compatible with pneumonia in the appropriate clinical setting. 2. No pleural effusions. 3. Mild left basilar subsegmental atelectasis. Assessment and Plan (1) Pneumonia: Status: Acute (2) Non-ST elevation UT (NSTEMI): Status: Acute (3) Hypokalemia: Status: Acute (4) Constipation: Status: Acute (5) Acute kidney injury superimposed on CKD: Status: Acute Plan this is a 76-year-old female with past medical history of chronic diastolic heart failure, COPD, HLD, HTN, lung cancer presents to the hospital after having hypotension at [place] [facility] found to have multiple complications as below # acute community-acquired pneumonia - right upper lobe pneumonia - has leukocytosis, hypotension, lactic acid - will treat with IV antibiotics - follow blood cultures # NSTEMI - has elevated troponin with delta, as well as EKGs changes with ST T-wave depressions in the lateral leads as well as T-wave inversions - patient denies any chest pain - started on heparin drip - cardiology consulted - echocardiogram # constipation - reports a history of constipation as well as recent nausea and vomiting - will obtain KUB - IV fluids - bowel regimen # hypokalemia - repleted - follow BMP # BRITT on CKD - documented history of CKD, elevated creatinine at this time with no baseline for comparison - will treat with IV fluids - follow BMP pending med rec by pharmacy DVT prophylaxis: Heparin GGT given patient's NSTEMI as well as pneumonia requiring IV antibiotics patient requirement room 2 nights inpatient hospital stay for further management and monitoring Time Spent With Patient Time: Total time managing care of this patient today ____ minutes. Quality Stroke Does the patient have a stroke diagnosis?: No VTE Prior VTE?: No VTE Risk Level:: Medical - moderate - high VTE Device Contraindication: Treatment Not Indicated VTE Drug Contraindication: N/A - Med Ordered
--- NOTE | 2022-03-04 07:00 | CA_ITS ---
Transthoracic Echocardiogram Patient (Last, First, Middle): Dara Marshall, Gender: Female Date of : 1945 Age: 76 Procedure Date: 03/04/2022 Procedure Type: Transthoracic Echocardiogram Location: [facility] [place] Height: 167.64 cm Weight: 119.75 kg BSA: 2.25 m2 Heart Rate: 78 bpm BP: 105 / 59 mmHg Brokerage Clerk: MARTHA Referring MD: Kleber Ayala MD Symptoms: NSTEMI Study Quality: Adequate ECG Rhythm: Sinus Conclusions: - Normal left ventricular cavity size. There is mildly increased left ventricular wall thickness. The left ventricular systolic function is hyperdynamic. The visually estimated ejection fraction is >70%. - There is a flattened septum in systole consistent with right ventricular pressure overload. - The basal inferior segment is akinetic. - Mildly increased right ventricular cavity size. There is borderline right ventricular systolic function. - Tricuspid regurgitation envelope is inadequate for calculation of right ventricular systolic pressure. Normal right atrial pressure. Findings Left Ventricle Normal left ventricular cavity size. There is mildly increased left ventricular wall thickness. The left ventricular systolic function is hyperdynamic. The visually estimated ejection fraction is >70%. There is evidence of regional wall motion abnormalities. There is a flattened septum in systole consistent with right ventricular pressure overload. Abnormal diastolic function is noted. Spectral Doppler is indicative of a pseudonormal filling pattern. E/E prime ratio is between 8 and 15 consistent with indeterminate filling pressures. Wall Motion Rest Echo Findings The basal inferior segment is akinetic. Right Ventricle Mildly increased right ventricular cavity size. There is borderline right ventricular systolic function. Aortic Valve There is mild calcification of the aortic valve. Mitral Valve The mitral valve appears normal. There is trace mitral valve regurgitation. There is no mitral valve stenosis. Pulmonic Valve Normal pulmonic valve structure and function. There is no pulmonic valve regurgitation. Tricuspid Valve Normal tricuspid valve structure and function. There is no tricuspid valve regurgitation. Tricuspid regurgitation envelope is inadequate for calculation of right ventricular systolic pressure. Normal right atrial pressure. Great Vessels All visible segments of the aorta are normal in size. The visualized portions of the pulmonary artery and branches are normal. Venous The inferior vena cava is normal in size and collapses greater than 50% with inspiration. Pericardium/Pleural Prominent epicardial adipose tissue noted. There is no evidence of pericardial effusion. Prior Study Comparison No prior study available for comparison. Measurements 2D Linear Measurements IVSd: 1.07 0.6-0.9/0.6-1.0 cm LVIDd: 4.40 3.9-5.3/4.2-5.9 cm LVIDd Index: 1.96 2.4-3.2/2.2-3.1 cm/m2 LVIDs: 2.78 2.0-3.6 cm LVPWd: 1.19 0.7-1.1 cm LA Diam: 3.50 2.7-3.8/3.0-4.0 cm LAIDs Index: 1.56 1.5-2.3 cm/m2 LV Mass: 218.63 67-162/88-224 g LV Mass Index: 97.17 43-95/49-115 g/m2 LVOT Diam: 2.30 3.0+(-)1.3 cm 2D Systolic Function EF 4C: 60.60 >55% EF 2C: 59.10 >55% EF BiP: 59.00 >55% Mitral Valve MV Pk E: 0.71 MV PK A: 0.70 MV Decel Time: 191.00 E/A: 1.00 E'Lateral: 7.29 E'Medial: 6.64 E/E' Med: 10.70 E/E' Lat: 9.80 PHT: 56.00 MVA PHT: 3.93 Decel [place]: 3.72 Aortic Valve AoV Pk Jun: 2.02 AoV Mn Jun: 1.40 AoV VTI: 0.35 AoV Pk Grad: 16.00 Aov Mn Grad: 9.00 ERIC Cont.VTI: 2.81 LVOT LVOT Pk Jun: 1.34 LVOT Mn Jun: 0.90 LVOT VTI: 0.23 LVOT Pk Grad: 7.00 LVOT Mn Grad: 4.00 LVOT Diam: 2.30 LVOT Area: 4.15 Diastolic Function MV Pk E: 0.71 MV Pk A: 0.70 E/A: 1.00 E'Medial: 6.64 E/E' Med: 10.70 E' Laterial: 7.29 E/E' Lat: 9.80 Right Ventricle TAPSE (mm): 15.80 TVS' Jun: 11.30 Tricuspid Valve TR Pk Jun: 1.76 TR Pk Grad: 12.00 RA Press: 3.00 RVSP: 15.00 Great Vessels Aorta Sinus of Valsalva: 3.20 2.0-3.5 cm Ao Asc: 3.10 2.1-3.4 cm Pulmonary Valve PV Pk Jun: 1.05 Peak PV Grad: 4.00 Updated in Other Vendor System with Status of Final Cory Pyle MD electronically signed on 03/04/2022 2:28:54 PM with status of Final
[2022-03-04 07:10] LABS: Alanine Aminotransferase 10 U/L (0-31); Albumin Level 2.9 g/dL (3.5-5.0); Alkaline Phosphatase 69 U/L (39-117); Anion Gap 16 (12-20); Aspartate Amino Transferase 22 U/L (5-31); Bilirubin Total 0.8 mg/dL (0.0-1.0); Blood Urea Nitrogen 22 mg/dL (9-16); Carbon Dioxide 41 mmol/L (22-29); Chloride 87 mmol/L (96-108); Creatinine Clr Calc Pharmacy 38.5; Estimated Glomerular Filt Rate 30; Glucose Random 97 mg/dL (60-115); Potassium 3.6 mmol/L (3.3-5.1); Sodium 140 mmol/L (135-145); Total Protein 6.7 g/dL (6.5-8.0)
--- NOTE | 2022-03-04 07:56 | PHA.MEDREC ---
Pharmacy Consult ? Medication Reconciliation Pharmacy has completed the medication reconciliation. Patient had list from [facility].
[2022-03-04 09:39] LABS: PTT Heparin Drip 57.9 SEC (53-77.9)
--- NOTE | 2022-03-04 12:40 | PM.CNCAR ---
History of Present Illness History of Present Illness Date of Service: 03/04/22 Requesting physician: Silvino Rodriguez Chief complaint: NSTEMI, hypoxia. Narrative: 76-year-old female who has background history of COPD and has chronic respiratory failure and is on supplemental oxygen at baseline. She was at [facility] in January when she presented with cardiac arrest from [facility]. She had sinus node dysfunction and symptomatic bradycardia. She underwent permanent pacemaker placement. She also had hypercarbic respiratory failure afterwards and had pulmonology as well as palliative care input. It appears she was discharged to nursing facility. She is saying she was doing okay there and had no chest discomfort shortness of breath. Overnight she presented to us with hypoxia and hypotension. As per ER note, the patient was noticed to have saturation is 70s and blood pressure in 90s. When EMS arrived the patient's saturations were in 90s and blood pressure was also okay. The patient is quite confused while she was brought into the hospital. She is saying she had no symptoms whatsoever while she was there. I do not know how her mental status at baseline is. It appears there has been confused at times as per the documentation at [facility] and was thought that this is due to hypercarbia. In the ER she had EKG done which showed lateral ST depression and T-wave inversions. We did not have any old EKG to compare with and her high sensitivity troponin levels are mildly elevated so she was started on heparin drip. Right now she is denying any symptoms. I reviewed her EKGs at [facility] and she had significant T-wave changes in the precordial leads going back to November. Most recent EKG from February 10 had lateral T-wave inversions which are was somewhat similar to what we see currently on EKG. She is denying any active symptoms right now. No bleeding concerns previously. [facility] Past Medical History Medical History CHF (congestive heart failure) Chronic respiratory failure CKD (chronic kidney disease) COPD (chronic obstructive pulmonary disease) HLD (hyperlipidemia) HTN (hypertension), benign Lung cancer Social History Social History (Updated 03/04/22 @ 06:30 by Kleber Ayala MD) Alcohol intake: unknown Patient Tobacco Use Status: Former Tobacco user service: No Meds Allergies Allergy/AdvReac Type Severity Reaction Status Date / Time No Known Allergies Allergy Verified 03/03/22 22:55 Active Medications: Current Medications Acetaminophen (Acetaminophen 325 Mg Tablet) 650 mg PO Q6H PRN PRN Reason: Pain, Mild (Pain Scale 1-3) Albuterol Sulfate (Albuterol Sulfate (0.083%) 2.5 Mg/3 Ml Vial.Neb) 2.5 mg INHALE Q2H PRN PRN Reason: Wheezing Ascorbic Acid (Ascorbic Acid 500 Mg Tablet) 500 mg PO DAILY [facility] Aspirin (Aspirin Enteric Coated 81 Mg Tablet.Dr) 81 mg PO DAILY [facility] Atorvastatin Calcium (Atorvastatin Calcium 40 Mg Tablet) 40 mg PO BEDTIME [facility] Azithromycin (Azithromycin 500 Mg Tablet) 500 mg PO Q24H [facility] Bisacodyl (Bisacodyl 10 Mg Supp.Rect) 10 mg TN DAILY PRN PRN Reason: Constipation Docusate Sodium (Docusate Sodium 100 Mg Capsule) 100 mg PO DAILY PRN PRN Reason: Constipation Docusate Sodium (Docusate Sodium 100 Mg Capsule) 100 mg PO BID DIAN[facility] Ergocalciferol (Ergocalciferol (Vitamin D2) 1,250 Mcg Capsule) 1,250 mcg PO MO@0900 [facility] Heparin Sodium (Porcine) (Heparin Sodium,Porcine 5,000 Unit/Ml Vial) 4,800 unit 40 unit/kg (4800 unit) IVPUSH PROTOCOL BOLUS PRN; Protocol PRN Reason: 40 unit/kg - Heparin Protocol Heparin Sodium (Porcine) (Heparin Sodium,Porcine 5,000 Unit/Ml Vial) 9,600 unit 80 unit/kg (9600 unit) IVPUSH PROTOCOL BOLUS PRN; Protocol PRN Reason: 80 unit/kg - Heparin Protocol Heparin Sodium/Sodium Chloride (Heparin Sodium,Porcine/1/2ns) 25,000 unit in 250 mls @ 0 mls/hr IVCONT .Q0M DI[facility]; Protocol Last Titration: 03/04/22 10:16 Dose: 14 units/kg/hr, 16.8 mls/hr Ceftriaxone Sodium 1 gm/ (Sodium Chloride) 50 mls @ 100 mls/hr IV Q24H [facility] Melatonin (Melatonin 3 Mg Tablet) 3 mg PO BEDTIME [facility] Multivitamins/Vitamin C (Multivitamin Tablet) 1 tab PO DAILY [facility] Non-Formulary Medication (Arformoterol) 2 ml INHALE BID [facility] Non-Formulary Medication (Budesonide) 0.5 mg INHALE BID [facility] Ondansetron HCl (Ondansetron Hcl 4 Mg/2 Ml Vial) 4 mg IVPUSH Q8H PRN PRN Reason: Nausea and Vomiting Pharmacy Consult (Consult Rx Perform Med Rec) 1 each MISCELLANE ONCE PRN PRN Reason: Consult order Sodium Biphosphate/Sodium Phosphate (Sodium Phosphate,[place]-Dibasic 133 Ml Enema) 118 ml TN DAILY PRN PRN Reason: Constipation Sodium Chloride (0.9 % Sodium Chloride Flush 3 Ml Syringe) 3 ml IVFLUSH QSHIFT [facility] Last Admin: 03/04/22 10:48 Dose: Not Given Thiamine HCl (Thiamine Hcl 100 Mg Tablet) 100 mg PO DAILY [facility] Home Medications Medication Instructions Recorded Confirmed Last Taken Type acetaminophen 325 mg tablet 650 mg PO Q6H PRN Fever Or Pain 03/04/22 03/04/22 Unknown History albuterol sulfate 2.5 mg/3 mL 2.5 mg inhalation Q2H PRN Wheezing 03/04/22 03/04/22 Unknown History (0.083 %) solution for nebulization arformoterol 15 mcg/2 mL solution 2 ml inhalation BID wheezing 03/04/22 03/04/22 Unknown History for nebulization ascorbic acid (vitamin C) 500 mg 500 mg PO DAILY 03/04/22 03/04/22 Unknown History tablet (Vitamin C) aspirin 81 mg tablet,delayed 81 mg PO DAILY 03/04/22 03/04/22 Unknown History release atorvastatin 40 mg tablet 40 mg PO BEDTIME 03/04/22 03/04/22 Unknown History bisacodyl 10 mg rectal suppository 10 mg TN DAILY PRN Constipation 03/04/22 03/04/22 Unknown History budesonide 0.5 mg/2 mL suspension 0.5 mg inhalation BID wheezing 03/04/22 03/04/22 Unknown History for nebulization docusate sodium 100 mg capsule 100 mg PO BID 03/04/22 03/04/22 Unknown History (Colace) ergocalciferol (vitamin D2) 1,250 1,250 mcg PO MO@0900 03/04/22 03/04/22 Unknown History mcg (50,000 unit) capsule (Vitamin D2) melatonin 3 mg tablet 3 mg PO BEDTIME insomnia 03/04/22 03/04/22 Unknown History multivitamin 1 tab PO DAILY 03/04/22 03/04/22 Unknown History ondansetron 4 mg disintegrating 4 mg PO Q8H PRN Nausea 03/04/22 03/04/22 Unknown History tablet sodium phosphates 19 gram-7 118 ml TN DAILY PRN Constipation 03/04/22 03/04/22 Unknown History gram/118 mL enema (Fleet Enema) thiamine HCl (vitamin B1) 100 mg 100 mg PO DAILY 03/04/22 03/04/22 Unknown History tablet torsemide 40 mg tablet 40 mg PO DAILY 03/04/22 03/04/22 Unknown History zinc acetate 50 mg (zinc) capsule 50 mg PO DAILY 03/04/22 03/04/22 Unknown History Physical Exam Vital Signs: Vital Signs: Last Vital Signs Temp 97.9 F 03/04/22 10:57 Pulse 80 03/04/22 10:57 Resp 17 03/04/22 10:57 BP 106/64 03/04/22 10:57 Pulse Ox 97 03/04/22 10:57 O2 Del Method 03/04/22 10:57 O2 Flow Rate 3 03/04/22 10:57 Oxygen Flow Rate 4 03/03/22 22:58 BMI result Body Mass Index 42.7 GENERAL APPEARANCE: in no acute distress, pleasant. NECK: no carotid bruit, no jugular venous distention. SKIN: no suspicious lesions, warm and dry. HEART: no murmurs, regular rate and rhythm. LUNGS: clear to auscultation bilaterally. ABDOMEN: soft, nontender. EXTREMITIES: no edema. PERIPHERAL PULSES: equal. NEUROLOGIC: No gross deficits, AAO X 3 Objective Labs and Meds 03/04/22 00:13 03/04/22 05:31 Lab results: Laboratory Results - last 24 hr 03/03/22 03/04/22 03/04/22 23:57 00:12 00:12 WBC RBC Hgb Hct MCV MCH MCHC RDW Plt Count MPV Immature Gran % (Auto) Neut % (Auto) Lymph % (Auto) [place] % (Auto) Eos % (Auto) Baso % (Auto) Lymph # (Auto) [place] # (Auto) Eos # (Auto) Baso # (Auto) Abs Immat Gran (auto) Absolute Neuts (auto) Absolute Nucleated RBC Nucleated RBC % (auto) PT INR aPTT Heparin Protocol D-Dimer High Sensitivty 927 Sodium Potassium Chloride Carbon Dioxide Anion Gap BUN Creatinine Estim Creat Clear Calc Estimated GFR Random Glucose Lactic Acid Calcium Magnesium Total Bilirubin Direct Bilirubin AST ALT Alkaline Phosphatase Troponin I High Sens B-Natriuretic Peptide 172 H Total Protein Albumin COVID-19 (SHANEL) Negative COVID-19 Clin Com See Note 03/04/22 03/04/22 03/04/22 00:13 00:13 00:13 WBC 15.4 H RBC 3.60 L Hgb 10.4 L Hct 35.0 L MCV 97.2 MCH 28.9 MCHC 29.7 L RDW 14.6 Plt Count 690 H MPV 9.3 L Immature Gran % (Auto) 2.1 H Neut % (Auto) 89.4 H Lymph % (Auto) 3.8 L [place] % (Auto) 4.4 Eos % (Auto) 0.0 Baso % (Auto) 0.3 Lymph # (Auto) 0.6 L [place] # (Auto) 0.7 Eos # (Auto) 0.0 Baso # (Auto) 0.0 Abs Immat Gran (auto) 0.33 H Absolute Neuts (auto) 13.7 H Absolute Nucleated RBC 0.000 Nucleated RBC % (auto) 0.0 PT 15.5 H INR 1.3 H aPTT Heparin Protocol D-Dimer High Sensitivty Sodium 138 Potassium 3.1 L Chloride 83 L Carbon Dioxide 40 H* Anion Gap 18 BUN 21 H Creatinine 1.76 H Estim Creat Clear Calc 36.8 Estimated GFR 28 Random Glucose 107 Lactic Acid Calcium 9.3 Magnesium 1.6 Total Bilirubin 1.2 H Direct Bilirubin 0.6 H AST 22 ALT 10 Alkaline Phosphatase 78 Troponin I High Sens B-Natriuretic Peptide Total Protein 6.9 Albumin 3.0 L COVID-19 (SHANEL) COVID-19 Clin Com 03/04/22 03/04/22 03/04/22 00:13 00:13 03:33 WBC RBC Hgb Hct MCV MCH MCHC RDW Plt Count MPV Immature Gran % (Auto) Neut % (Auto) Lymph % (Auto) [place] % (Auto) Eos % (Auto) Baso % (Auto) Lymph # (Auto) [place] # (Auto) Eos # (Auto) Baso # (Auto) Abs Immat Gran (auto) Absolute Neuts (auto) Absolute Nucleated RBC Nucleated RBC % (auto) PT INR aPTT Heparin Protocol D-Dimer High Sensitivty Sodium Potassium Chloride Carbon Dioxide Anion Gap BUN Creatinine Estim Creat Clear Calc Estimated GFR Random Glucose Lactic Acid 0.9 Calcium Magnesium Total Bilirubin Direct Bilirubin AST ALT Alkaline Phosphatase Troponin I High Sens 164.3 H* 345.2 H* D B-Natriuretic Peptide Total Protein Albumin COVID-19 (SHANEL) COVID-19 Clin Com 03/04/22 03/04/22 03/04/22 04:26 05:31 09:26 WBC RBC Hgb Hct MCV MCH MCHC RDW Plt Count MPV Immature Gran % (Auto) Neut % (Auto) Lymph % (Auto) [place] % (Auto) Eos % (Auto) Baso % (Auto) Lymph # (Auto) [place] # (Auto) Eos # (Auto) Baso # (Auto) Abs Immat Gran (auto) Absolute Neuts (auto) Absolute Nucleated RBC Nucleated RBC % (auto) PT INR aPTT Heparin Protocol 57.9 D-Dimer High Sensitivty Sodium 140 140 Potassium 3.3 3.6 Chloride 86 L 87 L Carbon Dioxide 38 H 41 H* Anion Gap 19 16 BUN 21 H 22 H Creatinine 1.63 H 1.69 H Estim Creat Clear Calc 40.0 38.5 Estimated GFR 31 30 Random Glucose 89 97 Lactic Acid Calcium 9.0 9.0 Magnesium Total Bilirubin 0.8 Direct Bilirubin AST 22 ALT 10 Alkaline Phosphatase 69 Troponin I High Sens B-Natriuretic Peptide Total Protein 6.7 Albumin 2.9 L COVID-19 (SHANEL) COVID-19 Clin Com Imaging Radiologist's impression: Impressions Chest X-Ray 03/03/22 23:36 IMPRESSION: 1. Dense right upper lobe airspace consolidation compatible with pneumonia in the appropriate clinical setting. 2. No pleural effusions. 3. Mild left basilar subsegmental atelectasis. KUB X-Ray 03/04/22 08:31 IMPRESSION: Stool ball present in the rectum. No evidence of bowel obstruction. Assessment and Plan (1) Acute kidney injury superimposed on CKD: Status: Acute (2) Non-ST elevation MT (NSTEMI): Status: Acute (3) Pneumonia: Status: Acute Plan 76-year-old female who is presenting with hypoxia from nursing facility. She has chronic respiratory failure and has been supplemental oxygen. She has permanent pacemaker placed for sick sinus syndrome. Mildly abnormal troponin levels. She has lateral ST depressions and T-wave inversions. Her EKGs in [facility] were reviewed which were abnormal going back to November. She is denying any significant symptoms currently. I reviewed her echocardiogram at [facility] and they were read as normal right ventricular function previously but the ECHO performed at [place] is showing mild to moderate RV dilation and the function appears to be reduced. She has been on heparin for NSTEMI. I do not think that she has acute coronary syndrome currently. Having said that, I think we need to rule out pulmonary embolism. She had acute kidney injury on this admission. Please hydrate and see if she improves enough that we can do a CT pulmonary angiogram. If that is not possible then V/Q scan would be a 2nd line option. She has a right upper lobe infiltrate and is being treated with antibiotics currently. Once we have ruled out pulmonary embolism then I would consider stopping the heparin drip. Thank you for allowing me to participate in the care of your patient. Please feel free to contact me if you have any questions. Time Spent With Patient Time: Total time managing care of this patient today ____ minutes. Procedures Date of Service Date of Service: 03/04/22
--- NOTE | 2022-03-04 12:55 | MHC.CM.PN ---
pt from [facility] where she will return
--- NOTE | 2022-03-04 12:58 | PM.EVENT ---
Event Note Date of Service: 03/04/22 Event Note: PCP patient was seen and evaluated Feels mildly better but overall confused about the reason of hospital stay Cardiology recommended to continue heparin for now Monitor respiratory status, consider evaluation for PE with CVA if no improvement Patient might need BiPAP evaluation prior to discharge, to use it at nighttime while in the hospital Time Spent With Patient Time: Total time managing care of this patient today ____ minutes.
[2022-03-04 15:11] LABS: Appearance Urine Hazy; Color Urine Yellow; Glucose Urine UA Negative (Negative); Leukocyte Esterase Urine Negative (Negative); Nitrite Urine Negative (Negative); PH 5.5 (5.0-9.0); Urine Blood Negative (Negative); Urine Ketones Negative (Negative); Urine Protein Trace mg/dL (Neg-Trace)
[2022-03-04 15:26] LABS: PTT Heparin Drip 96.6 SEC (53-77.9)
[2022-03-04] MEDS: 0.9 % Sodium Chloride 1,000 ML 125 ML IVCONT (16:13)
[2022-03-04] MEDS: Atorvastatin Calcium 40 MG TABLET PO (20:11)
[2022-03-04] MEDS: Docusate Sodium 100 MG CAPSULE PO (20:11)
[2022-03-04 23:20] LABS: PTT Heparin Drip 68.4 SEC (53-77.9)
[2022-03-05] VITALS (8 sets, daily range): BP systolic 104–126; BP diastolic 54–59; PULSE 70–75; RESP 17–18; TEMP 36.1–36.9; O2SAT 94–98; BMI 42.7
[2022-03-05] MEDS: Heparin Sodium,Porcine/1/2NS 25,000 UNIT/250 ML IV.SOLN 13.2 UNIT IVCONT (00:03)
[2022-03-05] MEDS: Melatonin 3 MG TABLET PO ×2 (01:28→20:18)
[2022-03-05 05:22] LABS: Hematocrit 29.2 % (37.0-47.0); Hemoglobin 8.5 g/dl (12.0-16.0); Mean Corpuscular HGB Conc 29.1 g/dl (31.0-35.0); Mean Corpuscular Volume 99.7 fL (80.0-98.0); Mean Platelet Volume 9.2 fL (9.4-12.3); Platelet Count 569 X10*3/uL (160-400); Red Blood Count 2.93 X10*6/uL (4.20-5.50); Red Cell Distribution Width 14.8 % (11.0-16.0); White Blood Count 8.5 X10*3/uL (4.8-10.8)
[2022-03-05 05:29] LABS: PTT Heparin Drip 84.6 SEC (53-77.9)
[2022-03-05 05:53] LABS: Anion Gap 10 (12-20); Blood Urea Nitrogen 15 mg/dL (9-16); Calcium 8.6 mg/dL (8.4-10.2); Carbon Dioxide 42 mmol/L (22-29); Chloride 90 mmol/L (96-108); Creatinine Clr Calc Pharmacy 68.5; Estimated Glomerular Filt Rate 58; Glucose Random 85 mg/dL (60-115); Potassium 3.1 mmol/L (3.3-5.1); Sodium 139 mmol/L (135-145)
[2022-03-05 07:25] LABS: Venous Blood Gas Refer to POC result
[2022-03-05 07:27] LABS: VBG Base Excess 28.1 mmol/L; VBG HCO3 55 mmol/L (22-26); VBG pCO2 73 mmHg; VBG pH 7.48 (7.32-7.43); VBG pO2 110 mmHg
--- NOTE | 2022-03-05 09:46 | MHC.CM.PN ---
CM spoke with Patient's Daughter/Collette at [phone] and addressed IMM with her, original to be mailed certified letter to Collette and a copy to be placed on the chart. Patient is from [facility] at [facility] (Medicaid bed hold) and returning there VS A SNF in the [facility] that has the [employer] system is the goal; [facility] has initiated and will follow for dc planning. Patient has received no covid vax and her PCP/OPERATING THEATRE TECHNICIAN is Blanca Hearn.
[2022-03-05] MEDS: Potassium Chloride Packet 20 MEQ PACKET 40 MEQ PO (10:48)
[2022-03-05] MEDS: Multivitamin TABLET 1 TAB PO (10:51)
[2022-03-05] MEDS: Docusate Sodium 100 MG CAPSULE PO ×2 (10:51→20:17)
[2022-03-05] MEDS: Aspirin Enteric Coated 81 MG TABLET.DR PO (10:51)
[2022-03-05] MEDS: Ascorbic Acid 500 MG TABLET PO (10:51)
[2022-03-05] MEDS: Thiamine HCL 100 MG TABLET PO (10:51)
[2022-03-05 11:43] LABS: PTT Heparin Drip 67.5 SEC (53-77.9)
[2022-03-05] MEDS: iohexoL 350 MG/ML 100 ML INFUS..BTL 65 ML IV (12:29)
--- NOTE | 2022-03-05 13:12 | P.PNIM_ITS ---
Subjective Subjective Date of Service: 03/05/22 Interval History: the patient was seen and evaluated this morning Laying in bed, feels mild improvement but overall anxious about possible clot or a mass Denies any fever, chills or shortness of breath No reported other overnight events. Review of Systems Review of Systems: Yes all other systems are reviewed and are negative Physical Exam Vital Signs: Vital Signs: Last Vital Signs Temp 97.0 F 03/05/22 12:00 Pulse 73 03/05/22 12:00 Resp 18 03/05/22 12:00 BP 119/58 L 03/05/22 12:00 Pulse Ox 98 03/05/22 12:00 O2 Del Method 03/05/22 12:00 O2 Flow Rate 2 03/05/22 07:21 Oxygen Flow Rate 4 03/03/22 22:58 BMI result Body Mass Index 42.7 Const: Other: Constitutional : Awake, interactive, morbidly obese Neck : Normal inspection, Supple Cardiovascular : RRR, no JVP, no lower extremity edema Respiratory : Decreased bilateral air entry, no crackles, expiratory scattered wheezes Gastrointestinal: soft, lax, Normal bowel sounds, Non tender Skin : Warm, Dry Neurological : Alert & oriented x3, No focal deficit Objective Data Active Medications Acetaminophen (Acetaminophen 325 Mg Tablet) 650 mg PO Q6H PRN PRN Reason: Pain, Mild (Pain Scale 1-3) Albuterol Sulfate (Albuterol Sulfate (0.083%) 2.5 Mg/3 Ml Vial.Neb) 2.5 mg INH CARLOS Q2H PRN PRN Reason: Wheezing Ascorbic Acid (Ascorbic Acid 500 Mg Tablet) 500 mg PO DAILY [facility] Last Admin: 03/05/22 10:51 Dose: 500 mg Documented By: MARY Aspirin (Aspirin Enteric Coated 81 Mg Tablet.) 81 mg PO DAILY [facility] Last Admin: 03/05/22 10:51 Dose: 81 mg Documented By: MARY Atorvastatin Calcium (Atorvastatin Calcium 40 Mg Tablet) 40 mg PO BEDTIME [facility] Last Admin: 03/04/22 20:11 Dose: 40 mg Documented By: GERMÁN Azithromycin (Azithromycin 500 Mg Tablet) 500 mg PO Q24H [facility] Bisacodyl (Bisacodyl 10 Mg Supp.Rect) 10 mg [place] DAILY PRN PRN Reason: Constipation Docusate Sodium (Docusate Sodium 100 Mg Capsule) 100 mg PO DAILY PRN PRN Reason: Constipation Docusate Sodium (Docusate Sodium 100 Mg Capsule) 100 mg PO BID [facility] Last Admin: 03/05/22 10:51 Dose: 100 mg Documented By: MARY Ergocalciferol (Ergocalciferol (Vitamin D2) 1,250 Mcg Capsule) 1,250 mcg PO MO@0900 [facility] Heparin Sodium (Porcine) (Heparin Sodium,Porcine 5,000 Unit/Ml Vial) 4,800 unit 40 unit/kg (4800 unit) IVPUSH PROTOCOL BOLUS PRN; Protocol PRN Reason: 40 unit/kg - Heparin Protocol Heparin Sodium (Porcine) (Heparin Sodium,Porcine 5,000 Unit/Ml Vial) 9,600 unit 80 unit/kg (9600 unit) IVPUSH PROTOCOL BOLUS PRN; Protocol PRN Reason: 80 unit/kg - Heparin Protocol Heparin Sodium/Sodium Chloride (Heparin Sodium,Porcine/1/2ns) 25,000 unit in 250 mls @ 0 mls/hr IVCONT .Q0M [facility]; Protocol Last Titration: 03/05/22 12:47 Dose: 9 units/kg/hr, 10.8 mls/hr Documented By: MARY Co-signed By: KIN Ceftriaxone Sodium 1 gm/ (Sodium Chloride) 50 mls @ 100 mls/hr IV Q24H [facility] Melatonin (Melatonin 3 Mg Tablet) 3 mg PO BEDTIME [facility] Last Admin: 03/05/22 01:28 Dose: 3 mg Documented By: GERMÁN Multivitamins/Vitamin C (Multivitamin Tablet) 1 tab PO DAILY [facility] Last Admin: 03/05/22 10:51 Dose: 1 tab Documented By: MARY Non-Formulary Medication (Arformoterol) 2 ml INHALE BID [facility] Non-Formulary Medication (Budesonide) 0.5 mg INHALE BID [facility] Ondansetron HCl (Ondansetron Hcl 4 Mg/2 Ml Vial) 4 mg IVPUSH Q8H PRN PRN Reason: Nausea and Vomiting Pharmacy Consult (Consult Rx Perform Med Rec) 1 each MISCELLANE ONCE PRN PRN Reason: Consult order Sodium Biphosphate/Sodium Phosphate (Sodium Phosphate,[place]-Dibasic 133 Ml Enema) 118 ml [place] DAILY PRN PRN Reason: Constipation Sodium Chloride (0.9 % Sodium Chloride Flush 3 Ml Syringe) 3 ml IVFLUSH QSHIFT [facility] Last Admin: 03/05/22 10:48 Dose: Not Given Documented By: MARY Non-Admin Reason: IV Running Thiamine HCl (Thiamine Hcl 100 Mg Tablet) 100 mg PO DAILY [facility] Last Admin: 03/05/22 10:51 Dose: 100 mg Documented By: MARY Labs 03/05/22 04:50 03/05/22 04:50 Labs: Laboratory Results - last 24 hr 03/04/22 03/04/22 03/04/22 14:55 15:08 22:53 MCV MCH MCHC RDW Plt Count MPV Absolute Nucleated RBC Nucleated RBC % (auto) aPTT Heparin Protocol 96.6 H D 68.4 D VBG pH VBG pCO2 VBG pO2 VBG HCO3 VBG O2 Saturation VBG Base Excess Anion Gap Estim Creat Clear Calc Estimated GFR Random Glucose Calcium Urine Color Yellow Urine Appearance Hazy Urine pH 5.5 Ur Specific [place] 1.020 Urine Protein Trace Urine Glucose (UA) Negative Urine Ketones Negative Urine Blood Negative Urine Nitrite Negative Ur Leukocyte Esterase Negative 03/05/22 03/05/22 03/05/22 04:50 04:50 04:50 MCV 99.7 H MCH 29.0 MCHC 29.1 L RDW 14.8 Plt Count 569 H MPV 9.2 L Absolute Nucleated RBC 0.000 Nucleated RBC % (auto) 0.0 aPTT Heparin Protocol 84.6 H D VBG pH VBG pCO2 VBG pO2 VBG HCO3 VBG O2 Saturation VBG Base Excess Anion Gap 10 L Estim Creat Clear Calc 68.5 Estimated GFR 58 Random Glucose 85 Calcium 8.6 Urine Color Urine Appearance Urine pH Ur Specific [place] Urine Protein Urine Glucose (UA) Urine Ketones Urine Blood Urine Nitrite Ur Leukocyte Esterase 03/05/22 03/05/22 07:20 11:24 MCV MCH MCHC RDW Plt Count MPV Absolute Nucleated RBC Nucleated RBC % (auto) aPTT Heparin Protocol 67.5 D VBG pH 7.48 H VBG pCO2 73 VBG pO2 110 VBG HCO3 55 H VBG O2 Saturation 99.0 VBG Base Excess 28.1 Anion Gap Estim Creat Clear Calc Estimated GFR Random Glucose Calcium Urine Color Urine Appearance Urine pH Ur Specific [place] Urine Protein Urine Glucose (UA) Urine Ketones Urine Blood Urine Nitrite Ur Leukocyte Esterase Microbiology Microbiology Results: Microbiology 03/04/22 00:18 Blood Culture - Preliminary Blood - Venous No growth after 24 hours. 03/03/22 23:56 Blood Culture - Preliminary Blood - Venous No growth after 24 hours. Assessment and Plan (1) Acute kidney injury superimposed on CKD: Status: Acute (2) Pneumonia: Status: Acute (3) Non-ST elevation MT (NSTEMI): Status: Acute (4) Hypokalemia: Status: Acute Plan this is a 76-year-old female with past medical history of chronic diastolic heart failure, COPD, HLD, HTN, lung cancer presents to the hospital after having hypotension at snf found to have multiple complications as below # acute community-acquired pneumonia right upper lobe pneumonia infiltrates in CXR and CT scan CTA negative for PE Continue with IV antibiotics Pending final blood cultures # NSTEMI Cardiology input appreciated: Unlikely she has acute coronary syndrome currentl y. To DC heparin if PE is ruled out patient denies any chest pain Discontinue heparin drip Echo showing EF 70%, right ventricular pressure overload # constipation KUB showed stool ball in the rectum, no obstruction DC IV fluids Continue bowel regimen # hypokalemia repleted # BRITT on CKD Resolved DC IV fluids follow BMP DVT prophylaxis Heparin given patient's NSTEMI as well as pneumonia requiring IV antibiotics patient requirement overnight inpatient hospital stay for further management and monitoring Time Spent With Patient Time: Total time managing care of this patient today ____ minutes. Quality Stroke Does the patient have a stroke diagnosis?: No VTE Prior VTE?: No VTE Risk Level:: Medical - moderate - high VTE Device Contraindication: Treatment Not Indicated VTE Drug Contraindication: N/A - Med Ordered
--- NOTE | 2022-03-05 13:50 | MHC.CLN ---
RE: CONSULT PT WITH INCREASED NUTRITION RISK R.T PRESSURE INJURY PO INTAKE VARIABLE RANGING FROM 0-100% DIET RX: GRD M/S-APPROPRIATE RECOMMEND ADDING ENSURE MAX BID TO INCREASE PO PROTEIN AND PROMOTE WOUND HEALING SUPP TO PROVIDE 300KCALS, 60G PROTEIN MONITOR PO INTAKE CLOSELY SEE ALSO FULL CLINICAL NUTRITION ASSESSMENT
[2022-03-05] MEDS: Lactulose 20 GM/30 ML SOLUTION PO ×2 (14:25→20:17)
[2022-03-05] MEDS: Atorvastatin Calcium 40 MG TABLET PO (20:17)
[2022-03-05] MEDS: cefTRIAXone sodium 1 GM in 0.9 % Sodium Chloride 50 ML IV (20:18)
[2022-03-05] MEDS: 0.9 % Sodium Chloride Flush 3 ML SYRINGE IVFLUSH (20:21)
[2022-03-05] MEDS: Azithromycin 500 MG TABLET PO (22:57)
[2022-03-05] MEDS: Heparin Sodium,Porcine 5,000 UNIT/ML VIAL 5000 UNIT SUBCUT (22:57)
[2022-03-06] VITALS (7 sets, daily range): BP systolic 118–138; BP diastolic 49–74; PULSE 68–82; RESP 16–20; TEMP 36.8–37.2; O2SAT 91–98
[2022-03-06 00:12] LABS: PTT Heparin Drip 41.3 SEC (53-77.9)
[2022-03-06] MEDS: Heparin Sodium,Porcine 5,000 UNIT/ML VIAL 5000 UNIT SUBCUT ×3 (05:08→20:54)
[2022-03-06 06:36] LABS: Hematocrit 30.9 % (37.0-47.0); Hemoglobin 9.1 g/dl (12.0-16.0); Mean Corpuscular HGB Conc 29.4 g/dl (31.0-35.0); Mean Corpuscular Hemoglobin 29.4 pg (27.0-33.0); Mean Platelet Volume 9.4 fL (9.4-12.3); Platelet Count 578 X10*3/uL (160-400); Red Blood Count 3.09 X10*6/uL (4.20-5.50); Red Cell Distribution Width 14.7 % (11.0-16.0); White Blood Count 8.9 X10*3/uL (4.8-10.8)
[2022-03-06 07:00] LABS: Anion Gap 15 (12-20); Blood Urea Nitrogen 9 mg/dL (9-16); Calcium 9.3 mg/dL (8.4-10.2); Carbon Dioxide 39 mmol/L (22-29); Chloride 92 mmol/L (96-108); Creatinine Clr Calc Pharmacy 78.5; Estimated Glomerular Filt Rate > 60; Glucose Random 89 mg/dL (60-115); Potassium 3.1 mmol/L (3.3-5.1); Sodium 143 mmol/L (135-145)
--- NOTE | 2022-03-06 09:02 | P.CDIC_ITS ---
CDI Concurrent Query Documentation Clarification: PHYSICIAN'S DOCUMENTATION REQUEST Date of Query: 03/06/22 0903 Patient Name: Daar Marshall Admit Date: 03/04/22 Dear Doctor, A review of the medical record indicates additional documentation may be needed. Please review below and update the documentation accordingly. Clinical Indicators: Is there a diagnosis that correlates with the findings below: Risk Factors/Clinical Indicators/Treatments -Per provider progress note on 03/05: Monitor respiratory status, consider evaluation for PE with CVA if no improvement. Patient might need BiPAP evaluation prior to discharge, to use it at nighttime while in the hospital -PMH of chronic respiratory failure (uns pecified) noted in provider H&P -Patient requiring increased oxygen boris nds -Patient with tachypnea (RR of 24) -Per ED note on 03/03: patient with dypnea, oxygen saturation was low in the 70s -Patient being treated for pneumonia Clarify which of the following accurately represents the patient's respiratory status: * Acute on chronic respiratory failure * COPD exacerbation * Acute on chronic respiratory failure and COPD exacerbation * Other (please specify) * Unable to determine Please include type if known: * Hypoxic * Hypercapnic * Hypoxic and hypercapnic * Unable to determine Use of terms such as suspected, likely, concern for, or probable (associated with a specific diagnosis that is being evaluated, monitored, or treated as if it exists) are acceptable and can be coded in the inpatient setting, when documented at the time of discharge. Thank you, Olive Argueta MS, RN, CCRN Extension: [phone] Please use your independent medical judgment in providing your response. THIS QUERY IS PART OF THE PERMANENT MEDICAL RECORD Provider Response: Other Other Diagnosis: unable to determine
--- NOTE | 2022-03-06 09:14 | P.CDIC_ITS ---
CDI Concurrent Query Documentation Clarification: PHYSICIAN'S DOCUMENTATION REQUEST Date of Query: 03/06/22 0914 Patient Name: Dara Marshall Admit Date: 03/04/22 Dear Doctor, A review of the medical record indicates additional documentation may be needed. Please review below and update the documentation accordingly. Clinical Indicators: Is there a diagnosis that correlates with the findings below: Risk Factors/Clinical Indicators/Treatments BMI: 42.7 Height: 5ft 6in Weight: 120kg Per RN shift assessments: Abdomen large, obese, round If possible, please provide an associated diagnosis related to the abnormal BMI, such as: For a BMI >= 40: * Severe or Morbid Obesity * Obesity * Due to excess calories * Drug induced * Due to other cause * With alveolar hypoventilation * Without alveolar hypoventilation Or: * BMI is not significant * Other (please specify) * Unable to determine Use of terms such as suspected, likely, concern for, or probable (associated with a specific diagnosis that is being evaluated, monitored, or treated as if it exists) are acceptable and can be coded in the inpatient setting, when documented at the time of discharge. Thank you, Olive Argueta MS, RN, CCRN Extension: [phone] Please use your independent medical judgment in providing your response. THIS QUERY IS PART OF THE PERMANENT MEDICAL RECORD Provider Response: Morbid Obesity
--- NOTE | 2022-03-06 10:13 | MHC.CLN ---
F/U PO INTAKE REMAINS VARIABLE RANGING FROM 0-100% DIET RX: GRD M/S-APPROPRIATE PT RECEIVING ENSURE MAX BID TO INCREASE PO PROTEIN AND PROMOTE WOUND HEALING SUPP PROVIDES 300KCALS, 60G PROTEIN MONITOR PO INTAKE CLOSELY
[2022-03-06] MEDS: Aspirin Enteric Coated 81 MG TABLET.DR PO (10:33)
[2022-03-06] MEDS: Thiamine HCL 100 MG TABLET PO (10:33)
[2022-03-06] MEDS: 0.9 % Sodium Chloride Flush 3 ML SYRINGE IVFLUSH ×3 (10:33→20:54)
[2022-03-06] MEDS: Ascorbic Acid 500 MG TABLET PO (10:33)
[2022-03-06] MEDS: Docusate Sodium 100 MG CAPSULE PO (10:33)
[2022-03-06] MEDS: Multivitamin TABLET 1 TAB PO (10:33)
--- NOTE | 2022-03-06 13:46 | P.PNIM_ITS ---
Subjective Subjective Date of Service: 03/06/22 Interval History: the patient was seen and evaluated this morning Laying in bed, feels mild improvement weaning down oxygen supplement Denies any fever, chills or shortness of breath No reported other overnight events. Review of Systems Review of Systems: Yes all other systems are reviewed and are negative Physical Exam Vital Signs: Vital Signs: Last Vital Signs Temp 98.5 F 03/06/22 11:27 Pulse 73 03/06/22 11:27 Resp 16 03/06/22 11:27 BP 119/56 L 03/06/22 11:27 Pulse Ox 96 03/06/22 11:27 O2 Del Method 03/06/22 11:27 O2 Flow Rate 2 03/06/22 07:46 Oxygen Flow Rate 4 03/03/22 22:58 BMI result Body Mass Index 42.7 Const: Other: Constitutional : Awake, interactive, morbidly obese Neck : Normal inspection, Supple Cardiovascular : RRR, no JVP, no lower extremity edema Respiratory : improved bilateral air entry, no crackles, resolving expiratory scattered wheezes Gastrointestinal: soft, lax, Normal bowel sounds, Non tender Skin : Warm, Dry Neurological : Alert & oriented x3, No focal deficit Objective Data Active Medications Acetaminophen (Acetaminophen 325 Mg Tablet) 650 mg PO Q6H PRN PRN Reason: Pain, Mild (Pain Scale 1-3) Albuterol Sulfate (Albuterol Sulfate (0.083%) 2.5 Mg/3 Ml Vial.Neb) 2.5 mg INHALE Q2H PRN PRN Reason: Wheezing Ascorbic Acid (Ascorbic Acid 500 Mg Tablet) 500 mg PO DAILY [facility] Last Admin: 03/06/22 10:33 Dose: 500 mg Documented By: MARY Aspirin (Aspirin Enteric Coated 81 Mg Tablet.) 81 mg PO DAILY [facility] Last Admin: 03/06/22 10:33 Dose: 81 mg Documented By: MARY Atorvastatin Calcium (Atorvastatin Calcium 40 Mg Tablet) 40 mg PO BEDTIME [facility] Last Admin: 03/05/22 20:17 Dose: 40 mg Documented By: MAG Azithromycin (Azithromycin 500 Mg Tablet) 500 mg PO Q24H [facility] Last Admin: 03/05/22 22:57 Dose: 500 mg Documented By: MAG Bisacodyl (Bisacodyl 10 Mg Supp.Rect) 10 mg [place] DAILY PRN PRN Reason: Constipation Docusate Sodium (Docusate Sodium 100 Mg Capsule) 100 mg PO DAILY PRN PRN Reason: Constipation Docusate Sodium (Docusate Sodium 100 Mg Capsule) 100 mg PO BID [facility] Last Admin: 03/06/22 10:33 Dose: 100 mg Documented By: MARY Ergocalciferol (Ergocalciferol (Vitamin D2) 1,250 Mcg Capsule) 1,250 mcg PO MO@0900 [facility] Heparin Sodium (Porcine) (Heparin Sodium,Porcine 5,000 Unit/Ml Vial) 5,000 unit SUBCUT Q8H [facility] Last Admin: 03/06/22 05:08 Dose: 5,000 unit Documented By: MAG Ceftriaxone Sodium 1 gm/ (Sodium Chloride) 50 mls @ 100 mls/hr IV Q24H [facility] Last Infusion: 03/05/22 21:25 Dose: 0 mls/hr Documented By: MAG Lactulose (Lactulose 20 Gm/30 Ml Solution) 20 gm PO BID [facility] Last Admin: 03/06/22 10:36 Dose: Not Given Documented By: MARY Non-Admin Reason: Patient Refused Melatonin (Melatonin 3 Mg Tablet) 3 mg PO BEDTIME [facility] Last Admin: 03/05/22 20:18 Dose: 3 mg Documented By: MAG Multivitamins/Vitamin C (Multivitamin Tablet) 1 tab PO DAILY [facility] Last Admin: 03/06/22 10:33 Dose: 1 tab Documented By: MARY Non-Formulary Medication (Arformoterol) 2 ml INHALE BID [facility] Non-Formulary Medication (Budesonide) 0.5 mg INHALE BID [facility] Ondansetron HCl (Ondansetron Hcl 4 Mg/2 Ml Vial) 4 mg IVPUSH Q8H PRN PRN Reason: Nausea and Vomiting Pharmacy Consult (Consult Rx Perform Med Rec) 1 each MISCELLANE ONCE PRN PRN Reason: Consult order Sodium Biphosphate/Sodium Phosphate (Sodium Phosphate,[place]-Dibasic 133 Ml Enema) 118 ml [place] DAILY PRN PRN Reason: Constipation Sodium Chloride (0.9 % Sodium Chloride Flush 3 Ml Syringe) 3 ml IVFLUSH QSHIFT [facility] Last Admin: 03/06/22 10:33 Dose: 3 ml Documented By: MARY Thiamine HCl (Thiamine Hcl 100 Mg Tablet) 100 mg PO DAILY [facility] Last Admin: 03/06/22 10:33 Dose: 100 mg Documented By: MARY Labs 03/06/22 06:01 03/06/22 06:01 Labs: Laboratory Results - last 24 hr 03/05/22 03/06/22 03/06/22 23:52 06:01 06:01 MCV 100.0 H MCH 29.4 MCHC 29.4 L RDW 14.7 Plt Count 578 H MPV 9.4 Absolute Nucleated RBC 0.000 Nucleated RBC % (auto) 0.0 aPTT Heparin Protocol 41.3 L D Anion Gap 15 Estim Creat Clear Calc 78.5 Estimated GFR > 60 Random Glucose 89 Calcium 9.3 D Microbiology Microbiology Results: Microbiology 03/04/22 00:18 Blood Culture - Preliminary Blood - Venous No growth after 48 hours. 03/03/22 23:56 Blood Culture - Preliminary Blood - Venous No growth after 48 hours. Assessment and Plan (1) Acute kidney injury superimposed on CKD: Status: Acute (2) Pneumonia: Status: Acute Plan this is a 76-year-old female with past medical history of chronic diastolic heart failure, COPD, HLD, HTN, lung cancer presents to the hospital after having hypotension at group home found to have multiple complications as below # acute community-acquired pneumonia right upper lobe pneumonia infiltrates in CXR and CT scan No documented hypoxia in hospital CTA negative for PE Continue with IV antibiotics negative final blood cultures # RUL mass Squamous cell carcinoma per [facility] work up Needs to follow with [facility] oncology for PET scan and further work up as outpatient # NSTEMI Cardiology input appreciated: Unlikely she has acute coronary syndrome currently. To DC heparin if PE is ruled out patient denies any chest pain Discontinue heparin drip Echo showing EF 70%, right ventricular pressure overload # Hx of COPD prn bronchodilators Bedtime Bipap overnight oximetry testing for eval of BiPAP # constipation KUB showed stool ball in the rectum, no obstruction DC IV fluids Continue bowel regimen # hypokalemia K 3.1 replacement given # BRITT on CKD Resolved DC IV fluids follow BMP DVT prophylaxis Heparin The patient will need overnight hospital stay for pneumonia requiring IV antibiotics, Oximetry testing overnight pending safe discharge plan Time Spent With Patient Time: Total time managing care of this patient today ____ minutes. Quality Stroke Does the patient have a stroke diagnosis?: No VTE Prior VTE?: No VTE Risk Level:: Medical - moderate - high VTE Device Contraindication: Treatment Not Indicated VTE Drug Contraindication: N/A - Med Ordered
--- NOTE | 2022-03-06 14:17 | PM.CNPUL ---
History of Present Illness History of Present Illness Consult date: 03/06/22 Requesting physician: Silvino Rodriguez Chief complaint: NSTEMI, hypoxia. Narrative: 76-year-old lady with underlying history of COPD on 3-4 L of supplemental oxygen, congestive heart failure, CAD status post pacemaker, squamous cell carcinoma of though it known, AYDIN admitted on 03/05/2022 with complaints of dehydration. She was treated with IV fluids CT chest was obtained for further workup where an 9 cm right apical necrotic mass was noted on pulmonary evaluation was requested. Patient is vague about her recent medical history rib, but states that she has had a recent workup at [facility]. Records were requested and showed that patient had 6 cm right apical mass in January of 2022 That was diagnosed as a squamous cell carcinoma. at the time of this evaluation she denies any in dyspnea, cough, or sputum production. She is on her baseline 2-3 L of supplemental oxygen. Review of Systems Constitutional: Constitutional: Denies daytime sleepiness, Denies excessive sweating, Denies fatigue, Denies fever(s), Denies lethargy, Denies malaise, Denies night sweats, Denies snoring and Denies weight loss Eyes: Eyes: Denies blurry vision and Denies itchy eyes ENT: Denies nasal congestion, Denies post nasal drip, Denies sinus pain, Denies sinus pressure and Denies other ( Thrush) Cardiovascular: Cardiovascular: Denies chest pain, Denies pedal edema, Denies dyspnea, Denies orthopnea and Denies paroxysmal nocturnal dyspnea Respiratory: Respiratory: Denies cough, Denies hemoptysis, Denies excessive phlegm production, Denies dyspnea, Denies snoring and Denies wheezing Gastrointestinal: Gastrointestinal: Denies abdominal pain and Denies heartburn Musculoskeletal: Musculoskeletal: Denies myalgias, Denies arthralgias and Denies joint swelling Integumentary/Breasts: Skin/Breast: Denies rash Neurologic: Denies memory loss and Denies seizure-like activity Psychiatric: Psychiatric: Denies abnormal sleep pattern, Denies anxiety and Denies memory loss Endocrine: Endocrine: Denies excessive sweating, Denies fatigue and Denies heat intolerance Hematologic/Lymphatic: Hematologic/Lymphatic: Denies easy bruising Allergic/Immunologic: Allergic/Immunologic: Denies itchy eyes, Denies seasonal rhinorrhea and Denies wheezing PMFSH Past Medical History Medical History (Updated 03/06/22 @ 14:21 by Rodolfo Hwang MD) CHF (congestive heart failure) Chronic respiratory failure CKD (chronic kidney disease) COPD (chronic obstructive pulmonary disease) HLD (hyperlipidemia) HTN (hypertension), benign Lung cancer Social History Social History (Updated 03/04/22 @ 06:30 by Kleber Ayala MD) Alcohol intake: unknown Patient Tobacco Use Status: Former Tobacco user service: No Current occupational status: retired [employer] Allergies Allergy/AdvReac Type Severity Reaction Status Date / Time No Known Allergies Allergy Verified 03/03/22 22:55 Active Medications: Current Medications Acetaminophen (Acetaminophen 325 Mg Tablet) 650 mg PO Q6H PRN PRN Reason: Pain, Mild (Pain Scale 1-3) Albuterol Sulfate (Albuterol Sulfate (0.083%) 2.5 Mg/3 Ml Vial.Neb) 2.5 mg INHALE Q2H PRN PRN Reason: Wheezing Ascorbic Acid (Ascorbic Acid 500 Mg Tablet) 500 mg PO DAILY [facility] Last Admin: 03/06/22 10:33 Dose: 500 mg Aspirin (Aspirin Enteric Coated 81 Mg Tablet.Dr) 81 mg PO DAILY [facility] Last Admin: 03/06/22 10:33 Dose: 81 mg Atorvastatin Calcium (Atorvastatin Calcium 40 Mg Tablet) 40 mg PO BEDTIME [facility] Last Admin: 03/05/22 20:17 Dose: 40 mg Azithromycin (Azithromycin 500 Mg Tablet) 500 mg PO Q24H [facility] Last Admin: 03/05/22 22:57 Dose: 500 mg Bisacodyl (Bisacodyl 10 Mg Supp.Rect) 10 mg [place] DAILY PRN PRN Reason: Constipation Docusate Sodium (Docusate Sodium 100 Mg Capsule) 100 mg PO DAILY PRN PRN Reason: Constipation Docusate Sodium (Docusate Sodium 100 Mg Capsule) 100 mg PO BID [facility] Last Admin: 03/06/22 10:33 Dose: 100 mg Ergocalciferol (Ergocalciferol (Vitamin D2) 1,250 Mcg Capsule) 1,250 mcg PO MO@0900 [facility] Heparin Sodium (Porcine) (Heparin Sodium,Porcine 5,000 Unit/Ml Vial) 5,000 unit SUBCUT Q8H [facility] Last Admin: 03/06/22 05:08 Dose: 5,000 unit Ceftriaxone Sodium 1 gm/ (Sodium Chloride) 50 mls @ 100 mls/hr IV Q24H [facility] Last Infusion: 03/05/22 21:25 Dose: Infused Lactulose (Lactulose 20 Gm/30 Ml Solution) 20 gm PO BID [facility] Last Admin: 03/06/22 10:36 Dose: Not Given Melatonin (Melatonin 3 Mg Tablet) 3 mg PO BEDTIME [facility] Last Admin: 03/05/22 20:18 Dose: 3 mg Multivitamins/Vitamin C (Multivitamin Tablet) 1 tab PO DAILY [facility] Last Admin: 03/06/22 10:33 Dose: 1 tab Non-Formulary Medication (Arformoterol) 2 ml INHALE BID [facility] Non-Formulary Medication (Budesonide) 0.5 mg INHALE BID [facility] Ondansetron HCl (Ondansetron Hcl 4 Mg/2 Ml Vial) 4 mg IVPUSH Q8H PRN PRN Reason: Nausea and Vomiting Pharmacy Consult (Consult Rx Perform Med Rec) 1 each MISCELLANE ONCE PRN PRN Reason: Consult order Sodium Biphosphate/Sodium Phosphate (Sodium Phosphate,[place]-Dibasic 133 Ml Enema) 118 ml [place] DAILY PRN PRN Reason: Constipation Sodium Chloride (0.9 % Sodium Chloride Flush 3 Ml Syringe) 3 ml IVFLUSH QSHIFT [facility] Last Admin: 03/06/22 10:33 Dose: 3 ml Thiamine HCl (Thiamine Hcl 100 Mg Tablet) 100 mg PO DAILY [facility] Last Admin: 03/06/22 10:33 Dose: 100 mg Home Medications Medication Instructions Recorded Confirmed Last Taken Type acetaminophen 325 mg tablet 650 mg PO Q6H PRN Fever Or Pain 03/04/22 03/04/22 Unknown History albuterol sulfate 2.5 mg/3 mL 2.5 mg inhalation Q2H PRN Wheezing 03/04/22 03/04/22 Unknown History (0.083 %) solution for nebulization arformoterol 15 mcg/2 mL solution 2 ml inhalation BID wheezing 03/04/22 03/04/22 Unknown History for nebulization ascorbic acid (vitamin C) 500 mg 500 mg PO DAILY 03/04/22 03/04/22 Unknown History tablet (Vitamin C) aspirin 81 mg tablet,delayed 81 mg PO DAILY 03/04/22 03/04/22 Unknown History release atorvastatin 40 mg tablet 40 mg PO BEDTIME 03/04/22 03/04/22 Unknown History bisacodyl 10 mg rectal suppository 10 mg [place] DAILY PRN Constipation 03/04/22 03/04/22 Unknown History budesonide 0.5 mg/2 mL suspension 0.5 mg inhalation BID wheezing 03/04/22 03/04/22 Unknown History for nebulization docusate sodium 100 mg capsule 100 mg PO BID 03/04/22 03/04/22 Unknown History (Colace) ergocalciferol (vitamin D2) 1,250 1,250 mcg PO MO@0900 03/04/22 03/04/22 Unknown History mcg (50,000 unit) capsule (Vitamin D2) melatonin 3 mg tablet 3 mg PO BEDTIME insomnia 03/04/22 03/04/22 Unknown History multivitamin 1 tab PO DAILY 03/04/22 03/04/22 Unknown History ondansetron 4 mg disintegrating 4 mg PO Q8H PRN Nausea 03/04/22 03/04/22 Unknown History tablet sodium phosphates 19 gram-7 118 ml [place] DAILY PRN Constipation 03/04/22 03/04/22 Unknown History gram/118 mL enema (Fleet Enema) thiamine HCl (vitamin B1) 100 mg 100 mg PO DAILY 03/04/22 03/04/22 Unknown History tablet torsemide 40 mg tablet 40 mg PO DAILY 03/04/22 03/04/22 Unknown History zinc acetate 50 mg (zinc) capsule 50 mg PO DAILY 03/04/22 03/04/22 Unknown History Physical Exam Vital Signs: Vital Signs: Last Vital Signs Temp 98.5 F 03/06/22 11:27 Pulse 73 03/06/22 11:27 Resp 16 03/06/22 11:27 BP 119/56 L 03/06/22 11:27 Pulse Ox 96 03/06/22 11:27 O2 Del Method 03/06/22 11:27 O2 Flow Rate 2 03/06/22 07:46 Oxygen Flow Rate 4 03/03/22 22:58 BMI result Body Mass Index 42.7 Const: General: no acute distress and alert Nutritional Appearance: not obese Orientation/consciousness: Other orientation findings ( oriented) HEENT: Head: Yes atraumatic Mouth: no other ( thrush) Throat: No postnasal drainage Eyes: General: appearance normal, both eyes and all related structures Sclerae: sclerae normal EOM: EOMs intact bilaterally Neck: Neck: Yes supple Lymphatic: no lymphadenopathy noted Resp: Effort & Inspection: normal respiratory effort and no use of accessory muscles Auscultation: clear to auscultation bilaterally Cardio: Rate: regular rate Rhythm: regular rhythm Heart sounds: no gallops, no murmurs and no rubs GI: Palpation (GI): Soft to palpation and Other GI palpation findings present ( nontender) Skin: General skin exam: other ( warm) Rashes: no rashes Extrem: General: No clubbing, No cyanosis and No edema Results Laboratory Findings 03/06/22 06:01 03/06/22 06:01 ABG, PT/INR, D-dimer: PT/INR, D-dimer PT 15.5 SEC (10.0-13.1) H 03/04/22 00:13 INR 1.3 (0.9-1.1) H 03/04/22 00:13 Abnormal lab findings: Abnormal Labs 03/04/22 03/04/22 03/04/22 00:12 00:13 00:13 WBC 15.4 H RBC 3.60 L Hgb 10.4 L Hct 35.0 L MCV MCHC 29.7 L Plt Count 690 H MPV 9.3 L Immature Gran % (Auto) 2.1 H Neut % (Auto) 89.4 H Lymph % (Auto) 3.8 L Lymph # (Auto) 0.6 L Abs Immat Gran (auto) 0.33 H Absolute Neuts (auto) 13.7 H PT INR aPTT Heparin Protocol VBG pH VBG HCO3 Potassium 3.1 L Chloride 83 L Carbon Dioxide 40 H* Anion Gap BUN 21 H Creatinine 1.76 H Total Bilirubin 1.2 H Direct Bilirubin 0.6 H Troponin I High Sens B-Natriuretic Peptide 172 H Albumin 3.0 L 03/04/22 03/04/22 03/04/22 00:13 00:13 03:33 WBC RBC Hgb Hct MCV MCHC Plt Count MPV Immature Gran % (Auto) Neut % (Auto) Lymph % (Auto) Lymph # (Auto) Abs Immat Gran (auto) Absolute Neuts (auto) PT 15.5 H INR 1.3 H aPTT Heparin Protocol VBG pH VBG HCO3 Potassium Chloride Carbon Dioxide Anion Gap BUN Creatinine Total Bilirubin Direct Bilirubin Troponin I High Sens 164.3 H* 345.2 H* D B-Natriuretic Peptide Albumin 01/01/1403/04/22 03/04/22 04:26 05:31 15:08 WBC RBC Hgb Hct MCV MCHC Plt Count MPV Immature Gran % (Auto) Neut % (Auto) Lymph % (Auto) Lymph # (Auto) Abs Immat Gran (auto) Absolute Neuts (auto) PT INR aPTT Heparin Protocol 96.6 H D VBG pH VBG HCO3 Potassium Chloride 86 L 87 L Carbon Dioxide 38 H 41 H* Anion Gap BUN 21 H 22 H Creatinine 1.63 H 1.69 H Total Bilirubin Direct Bilirubin Troponin I High Sens B-Natriuretic Peptide Albumin 2.9 L 03/05/22 03/05/22 03/05/22 04:50 04:50 04:50 WBC RBC 2.93 L Hgb 8.5 L Hct 29.2 L MCV 99.7 H MCHC 29.1 L Plt Count 569 H MPV 9.2 L Immature Gran % (Auto) Neut % (Auto) Lymph % (Auto) Lymph # (Auto) Abs Immat Gran (auto) Absolute Neuts (auto) PT INR aPTT Heparin Protocol 84.6 H D VBG pH VBG HCO3 Potassium 3.1 L Chloride 90 L Carbon Dioxide 42 H* Anion Gap 10 L BUN Creatinine Total Bilirubin Direct Bilirubin Troponin I High Sens B-Natriuretic Peptide Albumin 03/05/22 03/05/22 03/06/22 07:20 23:52 06:01 WBC RBC 3.09 L Hgb 9.1 L Hct 30.9 L MCV 100.0 H MCHC 29.4 L Plt Count 578 H MPV Immature Gran % (Auto) Neut % (Auto) Lymph % (Auto) Lymph # (Auto) Abs Immat Gran (auto) Absolute Neuts (auto) PT INR aPTT Heparin Protocol 41.3 L D VBG pH 7.48 H VBG HCO3 55 H Potassium Chloride Carbon Dioxide Anion Gap BUN Creatinine Total Bilirubin Direct Bilirubin Troponin I High Sens B-Natriuretic Peptide Albumin 03/06/22 06:01 WBC RBC Hgb Hct MCV MCHC Plt Count MPV Immature Gran % (Auto) Neut % (Auto) Lymph % (Auto) Lymph # (Auto) Abs Immat Gran (auto) Absolute Neuts (auto) PT INR aPTT Heparin Protocol VBG pH VBG HCO3 Potassium 3.1 L Chloride 92 L Carbon Dioxide 39 H Anion Gap BUN Creatinine Total Bilirubin Direct Bilirubin Troponin I High Sens B-Natriuretic Peptide Albumin Microbiology: Microbiology 03/04/22 00:18 Blood - Venous Blood Culture - Preliminary No growth after 48 hours. 03/03/22 23:56 Blood - Venous Blood Culture - Preliminary No growth after 48 hours. Assessment and Plan (1) Squamous cell carcinoma of right lung: Status: Acute (2) Chronic respiratory failure with hypoxia: Status: Acute (3) COPD (chronic obstructive pulmonary disease): Status: Acute Plan Impression: 76-year-old lady with underlying COPD supplemental oxygen dependent and known squamous cell carcinoma admitted for intravascular volume depletion, incidentally noted to have significant increas in size of her right apical mass, previously documented at 6 cm on imaging from [facility] from January, now at 9.5 cm and with central necrosis. Recommendations: No further workup of the right apical mass is indicated at this time. No evidence of superinfection. Will require outpatient oncology follow-up with PET scan assessment. Time Spent With Patient Time: Total time managing care of this patient today ____ minutes. Procedures Date of Service Date of Service: 03/06/22
[2022-03-06] MEDS: Atorvastatin Calcium 40 MG TABLET PO (20:54)
[2022-03-06] MEDS: Melatonin 3 MG TABLET PO (20:54)
[2022-03-06] MEDS: Azithromycin 500 MG TABLET PO (20:54)
[2022-03-06] MEDS: cefTRIAXone sodium 1 GM in 0.9 % Sodium Chloride 50 ML IV (20:55)
[2022-03-07 00:56] VITALS: PULSE 82; RESP 18; O2SAT 95
[2022-03-07 03:43] VITALS: BP 116/58; PULSE 71; RESP 20; TEMP 36.9; O2SAT 95
[2022-03-07] MEDS: Heparin Sodium,Porcine 5,000 UNIT/ML VIAL 5000 UNIT SUBCUT ×2 (05:55→14:11)
[2022-03-07 06:54] LABS: Hematocrit 29.8 % (37.0-47.0); Hemoglobin 9.1 g/dl (12.0-16.0); Mean Corpuscular HGB Conc 30.5 g/dl (31.0-35.0); Mean Corpuscular Hemoglobin 30.1 pg (27.0-33.0); Mean Corpuscular Volume 98.7 fL (80.0-98.0); Mean Platelet Volume 9.3 fL (9.4-12.3); Platelet Count 528 X10*3/uL (160-400); Red Blood Count 3.02 X10*6/uL (4.20-5.50); Red Cell Distribution Width 14.8 % (11.0-16.0); White Blood Count 8.4 X10*3/uL (4.8-10.8)
[2022-03-07 07:27] VITALS: BP 123/54; PULSE 79; RESP 20; TEMP 37; O2SAT 97
[2022-03-07 07:28] LABS: Anion Gap 11 (12-20); Blood Urea Nitrogen 6 mg/dL (9-16); Calcium 9.4 mg/dL (8.4-10.2); Carbon Dioxide 41 mmol/L (22-29); Chloride 91 mmol/L (96-108); Creatinine Clr Calc Pharmacy 82.4; Estimated Glomerular Filt Rate > 60; Glucose Random 83 mg/dL (60-115); Potassium 2.9 mmol/L (3.3-5.1); Sodium 140 mmol/L (135-145)
[2022-03-07] MEDS: Docusate Sodium 100 MG CAPSULE PO (08:47)
[2022-03-07] MEDS: Thiamine HCL 100 MG TABLET PO (08:47)
[2022-03-07] MEDS: Multivitamin TABLET 1 TAB PO (08:47)
[2022-03-07] MEDS: 0.9 % Sodium Chloride Flush 3 ML SYRINGE IVFLUSH (08:47)
[2022-03-07] MEDS: Ascorbic Acid 500 MG TABLET PO (08:47)
[2022-03-07] MEDS: Aspirin Enteric Coated 81 MG TABLET.DR PO (08:47)
[2022-03-07] MEDS: Potassium Chloride ER 20 MEQ TAB.ER.PRT 60 MEQ PO (11:37)
--- NOTE | 2022-03-07 11:41 | P.DS_ITS ---
DS: Providers Provider Date of Service: 03/07/22 Date of admission: 03/04/22 05:15 Primary care physician: Nonstaff Physician Consults: 03/04/22 05:16 Consult to Cardiology Routine Consulting Provider: Cory Pyle Reason for consultation: NSTEMI Has provider been notified: No 03/06/22 07:53 Consult to Pulmonology Routine Consulting Provider: Rodolfo Hwang Reason for consultation: 9.5 cm centrally fluid attenuation right upper mass for your kind eval DS: Diagnosis Discharge Diagnosis (1) Squamous cell carcinoma of right lung: Status: Acute (2) Chronic respiratory failure with hypoxia: Status: Acute (3) COPD (chronic obstructive pulmonary disease): Status: Acute DS: Summary Hospital Course Hospital Course: Admission note HPI ?this is a 76-year-old female with past medical history of chronic respiratory failure with hypoxia, chronic kidney disease, dysphagia, hyperlipidemia, morbid obesity, heart block status post pacemaker, chronic diastolic heart failure, HTN,? COPD, lung cancer, AYDIN, presents the hospital after her blood pressure was found to be low at the snf as well as have hypoxia reported to be 70s.? On arrival of EMS patient's blood pressure was normal recorded as 110/50 with an O2 of 93-94% on 4 L of oxygen.? Patient on baseline 3-4 L of O2. Pt reports that she was told she is dehydrated. She states that she has been having N/V no chest pain at this time but says that she has chest pain sometimes, denies any SOB,? no cough, no sputum production, no abdominal pain n ausea or vomiting, no diarrhea reports constipation for many days, reports that she? has small saulo of stool., no urinary symptoms and no lower extremity edema.? On arrival to the ED patient hemodynamically stable with a blood pressure 92/32 currently 120/47, Labs are significant for WBC count of 15.4, hemoglobin 10.4, medical 35, INR of 1.3, sodium 138, potassium 3.1, chloride of 83, creatinine of 1.[address] line for comparison, troponin of 163 that increased to 345,?EKG shows EKG shows T-wave inversions in 1 to aVL, as well as leads V4 V5 and V6 with ST depressions in V4 V5 and V6 chest x-ray shows pneumonia of right upper lobe Patient started on heparin drip and will be admitted for further management Hospital course The patient presented with Acute on Chronic hypoxic hypercapnic respiratory failure 2/2 COPD and pneumonia along with suspicion of NSTEMI. She was Treated with IV antibiotics, nebulizers with good response as she was weaned down on oxygen supplement 2 L only close to her baseline. She was previously evaluated at [facility] by sleep study. She will need Non-invasive ventilator at home to help with gas exchange with goal to decrease readmissions and improve quality of life. Blood cultures remain negative during the hospital stay. CTA came back negative for PE. Evaluated by pulmonology for reported right upper lobe mass. Checked on [facility] recent admission as the patient had biopsy done confirming diagnosis of squamous cell carcinoma with a plan to follow-up with oncology team as outpatient for PET scan and treatment plan. Evaluated by Cardiology team who thinks she had type 2 NSTEMI from likely hypoxia related to pneumonia as reported from nursing facility contributing to this. The patient was given heparin drip that was later discontinued as echo showed EF 70% with right ventricular pressure overload. Patient denied any chest pain during the hospital stay. Cardiology recommended to continue home medications. KUB showed stool ball in the rectum with no evidence of obstruction. She was started on laxatives of lactulose which was helpful moving her bowels. Noted to have acute kidney injury on top of CKD stage 3. Recovered back to normal baseline during the hospital stay. Blood work was consistent with hypokalemia on daily basis. Likely related to diuretics of torsemide. She received potassium supplement and was started on potassium supplement every other day at time of discharge as BMP will be followed as outpatient. Use lactulose once daily to help moving your bowels , hold for diarrhea Continue azithromycin and Ceftin as prescribed Start potassium supplement every other day To repeat blood test next week To follow-up as outpatient with [facility] oncology for further images and treatment plan for lung cancer Time Spent with Patient Time attestation: Total time managing care of this patient today ____ minutes. Discharge coordination time: Greater than 30 minutes Quality: Safe Use of Opioids Does Pt have an Active Cancer Diagnosis on the Problem List?: No Quality: Stroke Does the patient have a stroke diagnosis?: No Physical Exam Vital Signs: Vital Signs: Last Vital Signs Temp 98.6 F 03/07/22 07:27 Pulse 79 03/07/22 07:27 Resp 20 03/07/22 07:27 BP 123/54 L 03/07/22 07:27 Pulse Ox 97 03/07/22 07:27 O2 Del Method 03/07/22 07:27 O2 Flow Rate 2 03/07/22 07:27 Oxygen Flow Rate 4 03/03/22 22:58 BMI result Body Mass Index 42.7 Const: Other: Constitutional : Awake, interactive, morbidly obese Neck : Normal inspection, Supple Cardiovascular : RRR, no JVP, no lower extremity edema Respiratory : Fair bilateral air entry, no crackles, no significant scattered wheezes, on 2 L oxygen Gastrointestinal: soft, lax, Normal bowel sounds, Non tender Skin : Warm, Dry Neurological : Alert & oriented x3, No focal deficit DS: Data Data Completed and Pending Labs on day of discharge: Laboratory Results - last 24 hr 03/07/22 03/07/22 06:17 06:17 WBC 8.4 RBC 3.02 L Hgb 9.1 L Hct 29.8 L MCV 98.7 H MCH 30.1 MCHC 30.5 L RDW 14.8 Plt Count 528 H MPV 9.3 L Absolute Nucleated RBC 0.000 Nucleated RBC % (auto) 0.0 Sodium 140 Potassium 2.9 L Chloride 91 L Carbon Dioxide 41 H* Anion Gap 11 L BUN 6 L Creatinine 0.79 Estim Creat Clear Calc 82.4 Estimated GFR > 60 Random Glucose 83 Calcium 9.4 Preliminary micro results at discharge 03/04/22 00:18 Blood Culture - Preliminary Blood - Venous No growth after 48 hours. 03/03/22 23:56 Blood Culture - Preliminary Blood - Venous No growth after 48 hours. Imaging Chest x-ray: Radiologist's impression: ITS Impressions Chest X-Ray 03/03/22 23:36 IMPRESSION: 1. Dense right upper lobe airspace consolidation compatible with pneumonia in the appropriate clinical setting. 2. No pleural effusions. 3. Mild left basilar subsegmental atelectasis. KUB X-Ray 03/04/22 08:31 IMPRESSION: Stool ball present in the rectum. No evidence of bowel obstruction. Chest CTA 03/05/22 12:30 IMPRESSION: No central or lobar pulmonary embolism. Segmental and subsegmental pulmonary emboli cannot be excluded given limitations of the exam. An at least 9.5 cm centrally fluid attenuation right upper mass, suspicious for necrotizing bronchogenic carcinoma versus a necrotizing pneumonia. Recommend correlation with clinical symptoms and consider tissue sampling or PET/CT for further evaluation. Mediastinal and right hilar adenopathy which may be metastatic versus reactive, depending on the clinical context. Indeterminate 1.3 cm left adrenal nodule and indeterminate 1.0 cm right adrenal nodule for which further characterization with CT adrenal protocol, MR abdomen or PET/CT is recommended if patient is deemed have a primary malignancy. A 0.5 cm indeterminate right lower lobe pulmonary nodule. Fleischner Society recommended for pulmonary nodule follow-up do not apply for patients with a history of malignancy. Mild diffuse bronchial wall thickening with patchy areas of groundglass may reflect mild pulmonary edema or underlying atypical/viral infection. Mild cardiomegaly with a trace right pleural effusion. The findings and recommendations were discussed with Dr. Jamie Shahid MD by telephone at 03/05/2022 8:04 PM and it was ascertained that the content and urgency of the report was understood at the time of direct communication. Discharge Plan Discharge Anticipated Discharge Date/Time: 03/07/22 11:26 Patient Disposition: Xfer [facility] Discharge Diagnosis: Pneumonia Acute kidney injury Referrals: Physician,Nonstaff [Primary Care Provider] - 1 Week Discharge Medications: New azithromycin 500 mg Tablet 500 mg PO Q24H Qty: 5 0RF lactulose 20 gram/30 mL Solution 20 g PO DAILY Qty: 1200 0RF Rx Instructions: Hold for Diarrhea cefuroxime axetil 500 mg tablet 500 mg PO Q12H Qty: 10 0RF potassium chloride 20 mEq tablet extended release 20 meq PO .EOD Qty: 14 0RF Rx Instructions: Every other day Continued multivitamin Tablet 1 tab PO DAILY atorvastatin 40 mg Tablet 40 mg PO BEDTIME acetaminophen 325 mg Tablet 650 mg PO Q6H PRN (Reason: Fever Or Pain) zinc acetate 50 mg (zinc) Capsule 50 mg PO DAILY albuterol sulfate 2.5 mg /3 mL (0.083 %) Solution For Nebulization 2.5 mg INHALATION Q2H PRN (Reason: Wheezing) thiamine HCl (vitamin B1) 100 mg Tablet 100 mg PO DAILY melatonin 3 mg Tablet 3 mg PO BEDTIME aspirin 81 mg Tablet,Delayed Release (Dr/Ec) 81 mg PO DAILY ascorbic acid (vitamin C) [Vitamin C] 500 mg Tablet 500 mg PO DAILY bisacodyl 10 mg Suppository 10 mg WA DAILY PRN (Reason: Constipation) Rx Instructions: use if no results from milk of magnesia Fleet Enema 19-7 gram/118 mL Enema 118 ml [place] DAILY PRN (Reason: Constipation) Rx Instructions: use if no results from Dulcolax suppository docusate sodium [Colace] 100 mg Capsule 100 mg PO BID budesonide 0.5 mg/2 mL Suspension For Nebulization 0.5 mg INHALATION BID ergocalciferol (vitamin D2) [Vitamin D2] 1,250 mcg (50,000 unit) Capsule 1,250 mcg PO MO@0900 ondansetron 4 mg Tablet,Disintegrating 4 mg PO Q8H PRN (Reason: Nausea) arformoterol 15 mcg/2 mL Solution For Nebulization 2 ml INHALATION BID torsemide 40 mg Tablet 40 mg PO DAILY Discharge Orders: Discharge Order (Routine); Ordered 03/07/22 Ordered By: Silvino Rodriguez Diet: Advance to usual diet Activity on Discharge: As tolerated Stand Alone Forms: Patient Portal Discharge page Other Ambulatory Orders: Basic Metabolic Panel (Routine) Timeframe: 3 Days Facility: [facility] - Location: Laboratory Ordered By: Silvino Rodriguez Care Plan Goals: Read below Health Concerns: Read below Plan of Treatment: Read below Assessment: You were admitted to the hospital for evaluation of difficulty breathing. Found to have a pneumonia at the site of lung mass. Treated with IV antibiotics with good response as your blood cultures came back negative and you were weaned down on oxygen to 2 L only. Noted to have significant constipation. Started on lactulose, blood other laxatives with good response. Use lactulose once daily to help moving your bowels , hold for diarrhea Continue azithromycin and Ceftin as prescribed Start potassium supplement every other day To repeat blood test next week To follow-up as outpatient with [facility] oncology for further images and treatment plan for lung cancer
--- NOTE | 2022-03-07 11:41 | P.PNIM_ITS ---
Subjective Subjective Date of Service: 03/07/22 Interval History: the patient was seen and evaluated this morning Laying in bed, feels mild improvement weaning down oxygen supplement to 2L only Denies any fever, chills or shortness of breath No reported other overnight events. Review of Systems Review of Systems: Yes all other systems are reviewed and are negative Physical Exam Vital Signs: Vital Signs: Last Vital Signs Temp 98.6 F 03/07/22 07:27 Pulse 79 03/07/22 07:27 Resp 20 03/07/22 07:27 BP 123/54 L 03/07/22 07:27 Pulse Ox 97 03/07/22 07:27 O2 Del Method 03/07/22 07:27 O2 Flow Rate 2 03/07/22 07:27 Oxygen Flow Rate 4 03/03/22 22:58 BMI result Body Mass Index 42.7 Const: Other: Constitutional : Awake, interactive, morbidly obese Neck : Normal inspection, Supple Cardiovascular : RRR, no JVP, no lower extremity edema Respiratory : improved bilateral air entry, no crackles, resolving expiratory scattered wheezes Gastrointestinal: soft, lax, Normal bowel sounds, Non tender Skin : Warm, Dry Neurological : Alert & oriented x3, No focal deficit Objective Data Active Medications Acetaminophen (Acetaminophen 325 Mg Tablet) 650 mg PO Q6H PRN PRN Reason: Pain, Mild (Pain Scale 1-3) Albuterol Sulfate (Albuterol Sulfate (0.083%) 2.5 Mg/3 Ml Vial.Neb) 2.5 mg INHALE Q2H PRN PRN Reason: Wheezing Ascorbic Acid (Ascorbic Acid 500 Mg Tablet) 500 mg PO DAILY [facility] Last Admin: 03/07/22 08:47 Dose: 500 mg Documented By: WALDEMAR Aspirin (Aspirin Enteric Coated 81 Mg Tablet.) 81 mg PO DAILY [facility] Last Admin: 03/07/22 08:47 Dose: 81 mg Documented By: WALDEMAR Atorvastatin Calcium (Atorvastatin Calcium 40 Mg Tablet) 40 mg PO BEDTIME [facility] Last Admin: 03/06/22 20:54 Dose: 40 mg Documented By: GERMÁN Azithromycin (Azithromycin 500 Mg Tablet) 500 mg PO Q24H [facility] Last Admin: 03/06/22 20:54 Dose: 500 mg Documented By: GERMÁN Bisacodyl (Bisacodyl 10 Mg Supp.Rect) 10 mg [place] DAILY PRN PRN Reason: Constipation Docusate Sodium (Docusate Sodium 100 Mg Capsule) 100 mg PO DAILY PRN PRN Reason: Constipation Docusate Sodium (Docusate Sodium 100 Mg Capsule) 100 mg PO BID [facility] Last Admin: 03/07/22 08:47 Dose: 100 mg Documented By: WALDEMAR Ergocalciferol (Ergocalciferol (Vitamin D2) 1,250 Mcg Capsule) 1,250 mcg PO MO@0900 [facility] Heparin Sodium (Porcine) (Heparin Sodium,Porcine 5,000 Unit/Ml Vial) 5,000 unit SUBCUT Q8H [facility] Last Admin: 03/07/22 05:55 Dose: 5,000 unit Documented By: GERMÁN Ceftriaxone Sodium 1 gm/ (Sodium Chloride) 50 mls @ 100 mls/hr IV Q24H [facility] Last Infusion: 03/06/22 21:57 Dose: 0 mls/hr Documented By: GERMÁN Lactulose (Lactulose 20 Gm/30 Ml Solution) 20 gm PO BID [facility] Last Admin: 03/07/22 08:56 Dose: Not Given Documented By: WALDEMAR Non-Admin Reason: Patient Refused Melatonin (Melatonin 3 Mg Tablet) 3 mg PO BEDTIME [facility] Last Admin: 03/06/22 20:54 Dose: 3 mg Documented By: GERMÁN Multivitamins/Vitamin C (Multivitamin Tablet) 1 tab PO DAILY [facility] Last Admin: 03/07/22 08:47 Dose: 1 tab Documented By: WALDEMAR Non-Formulary Medication (Arformoterol) 2 ml INHALE BID [facility] Non-Formulary Medication (Budesonide) 0.5 mg INHALE BID [facility] Ondansetron HCl (Ondansetron Hcl 4 Mg/2 Ml Vial) 4 mg IVPUSH Q8H PRN PRN Reason: Nausea and Vomiting Pharmacy Consult (Consult Rx Perform Med Rec) 1 each MISCELLANE ONCE PRN PRN Reason: Consult order Sodium Biphosphate/Sodium Phosphate (Sodium Phosphate,Larimer-Dibasic 133 Ml Enema) 118 ml [place] DAILY PRN PRN Reason: Constipation Sodium Chloride (0.9 % Sodium Chloride Flush 3 Ml Syringe) 3 ml IVFLUSH QSHIFT [facility] Last Admin: 03/07/22 08:47 Dose: 3 ml Documented By: WALDEMAR Thiamine HCl (Thiamine Hcl 100 Mg Tablet) 100 mg PO DAILY DIANNE Last Admin: 03/07/22 08:47 Dose: 100 mg Documented By: WALDEMAR Labs 03/07/22 06:17 03/07/22 06:17 Labs: Laboratory Results - last 24 hr 03/07/22 03/07/22 06:17 06:17 MCV 98.7 H MCH 30.1 MCHC 30.5 L RDW 14.8 Plt Count 528 H MPV 9.3 L Absolute Nucleated RBC 0.000 Nucleated RBC % (auto) 0.0 Anion Gap 11 L Estim Creat Clear Calc 82.4 Estimated GFR > 60 Random Glucose 83 Calcium 9.4 Assessment and Plan (1) Squamous cell carcinoma of right lung: Status: Acute (2) Acute kidney injury superimposed on CKD: Status: Acute (3) Chronic respiratory failure with hypoxia: Status: Acute (4) COPD (chronic obstructive pulmonary disease): Status: Acute Plan this is a 76-year-old female with past medical history of chronic diastolic heart failure, COPD, HLD, HTN, lung cancer presents to the hospital after having hypotension at group home found to have multiple complications as below # acute community-acquired pneumonia right upper lobe pneumonia infiltrates in CXR and CT scan No documented hypoxia in hospital CTA negative for PE Plan to DC on oral Abx negative final blood cultures # RUL mass Squamous cell carcinoma per [facility] work up Needs to follow with [facility] oncology for PET scan and further work up as outpatient # NSTEMI Cardiology input appreciated: Unlikely she has acute coronary syndrome currently. To DC heparin if PE is ruled out patient denies any chest pain Discontinue heparin drip Echo showing EF 70%, right ventricular pressure overload # Acute on Chronic hypoxic hypercapnic respiratory failure 2/2 COPD previously evaluated at [facility] by sleep study Patient will need Non-invasive ventilator at home to help with gas exchange with goal to decrease readmissions and improve quality of life. Will continue with NIV while in the hospital # constipation KUB showed stool ball in the rectum, no obstruction DC IV fluids Continue bowel regimen # hypokalemia K 2.9 replacement given # BRITT on CKD Resolved DC IV fluids follow BMP DVT prophylaxis Heparin The patient will need overnight hospital stay for pneumonia requiring IV antibiotics, Oximetry testing overnight pending safe discharge plan Time Spent With Patient Time: Total time managing care of this patient today ____ minutes. Quality Stroke Does the patient have a stroke diagnosis?: No VTE Prior VTE?: No VTE Risk Level:: Medical - moderate - high VTE Device Contraindication: Treatment Not Indicated VTE Drug Contraindication: N/A - Med Ordered
[2022-03-07 12:00] VITALS: BP 129/63; PULSE 71; RESP 20; TEMP 37.1; O2SAT 95
[2022-03-07 12:04] LABS: COVID-19 Test Negative (Negative); IDNOW Serial# 16C4AD1C
[2022-03-07 13:48] LABS: Influenza A PCR NEGATIVE (Negative); Influenza B PCR NEGATIVE (Negative); Resp Syncy Virus RNA Qual PCR NEGATIVE (Negative); SARS COV2 PCR INHOUSE NEGATIVE (Negative)
[2022-03-07 16:00] VITALS: BP 101/65; PULSE 72; RESP 19; TEMP 36.7; O2SAT 95
== END 2022-03-07 20:00 | disposition skilled nursing facility (03) | DRG 193 ==
LOC: HO.ED 03-04 04:30 → HO.EDOVER 03-04 05:22 → HO.IMC 03-04 05:32
PROVIDERS: Admitting Provider Internal Medicine; Emergency Provider Emergency Medicine; Visit Provider Student in an Organized Health Care Education/Training Program
DX: J18.9 Pneumonia, unspecified organism (principal); I21.A1 Myocardial infarction type 2; J96.21 Acute and chronic respiratory failure with hypoxia; J96.22 Acute and chronic respiratory failure with hypercapnia; I13.0 Hypertensive heart and chronic kidney disease with heart failure and stage 1 through stage 4 chronic kidney disease, or unspecified chronic kidney disease; J44.0 Chronic obstructive pulmonary disease with (acute) lower respiratory infection; Z68.41 Body mass index [BMI] 40.0-44.9, adult; N17.9 Acute kidney failure, unspecified; I50.32 Chronic diastolic (congestive) heart failure; C34.11 Malignant neoplasm of upper lobe, right bronchus or lung; E78.5 Hyperlipidemia, unspecified; E87.6 Hypokalemia; G47.33 Obstructive sleep apnea (adult) (pediatric); K59.00 Constipation, unspecified; E66.01 Morbid (severe) obesity due to excess calories; D72.829 Elevated white blood cell count, unspecified; I49.5 Sick sinus syndrome; N18.30 Chronic kidney disease, stage 3 unspecified; Z99.81 Dependence on supplemental oxygen; I95.9 Hypotension, unspecified; Z20.822 Contact with and (suspected) exposure to COVID-19; Z95.0 Presence of cardiac pacemaker; Z87.891 Personal history of nicotine dependence; Z79.82 Long term (current) use of aspirin; Z79.899 Other long term (current) drug therapy
CPT/HCPCS: 0241U; 36415; 71045; 71275; 74018; 80048; 80053; 80076; 81003; 82803; 83605; 83735; 83880; 84484; 85025; 85027; 85379; 85610; 85730; 87040; 87635; 93005; 93306; 94660; 97162; 99285; J0456; J0696; J1643; Q9957; Q9967